=== PATIENT | female | born 1935 | race Hispanic/Latino ===

== ENCOUNTER 2016-10-11 09:37 | Day surgery (SDC) | payer MEDICARE ==
[2016-10-04 11:12] VITALS: RESP 18; BMI 30.2
[2016-10-11] MEDS ORDERED: Propofol 10 mg/ml Inj (20 ML) ONE (11:13)
[2016-10-11] MEDS ORDERED: Midazolam 2 MG/2 ML VIAL ONE (11:13)
[2016-10-11] MEDS ORDERED: cefTRIAXone (Rocephin) 1 gm Inj ONE (11:35)
[2016-10-11] MEDS ORDERED: Iohexol 240 200 ML IJ ONE ×2 (11:36→12:15)
[2016-10-11] MEDS ORDERED: Lactated Ringer's 1,000 ML IV ONE (12:15)
[2016-10-11] MEDS ORDERED: cefTRIAXone (Rocephin) 1 gm Inj IM ONE (12:20)
[2016-10-11 14:09] VITALS: TEMP 97.2
[2016-10-11 14:35] VITALS: BP 165/76; PULSE 67; O2SAT 96
--- NOTE | 2016-10-11 16:48 | RAD ---
PROCEDURE: Fluoroscopy up to 1 hr. HISTORY: CYSTOSCOPY COMPARISON: None TECHNIQUE: Standard protocol for this study/examination. FINDINGS: Submitted images from the current procedure: 21.0. IMPRESSION: Less than 1 hr fluoroscopic time utilized during performance of the procedure.
--- NOTE | 2016-11-20 15:50 | OP ---
PROCEDURE DATE: 10/11/2016 PREOPERATIVE DIAGNOSIS: Left hydronephrosis. POSTOPERATIVE DIAGNOSIS: Left hydronephrosis. PROCEDURE PERFORMED: Cystoscopy, left retrograde pyelogram with a left double-J stent placement. The patient was placed on the operating room table in a dorsal lithotomy position. The area of the [facility] was draped and prepped in a sterile manner. Using a #21 cystoscope, I entered into the bladder atraumatically. I then inserted an open-ended ureteral catheter and did a retrograde pyelogram to be able to confirm the hydronephrosis on the left side. At this time, over a guidewire, I was able to advance a 6-Polish multilink double-J stent into fluoroscopic good position. Once this was done, the n the patient was taken from the operating room in good condition. Humberto Whitmore MD cc: 48 TT: 11/20/2016 15:49:34 sn
--- NOTE | 2016-11-20 18:12 | DS ---
This is a female patient who came in for treatment of a left hydronephrosis. In the operating room, she underwent a retrograde pyelogram and a left double-J stent placement. In the recovery room the p atient is stable. She will be discharged from the hospital today with followup in my office and futu re management of the stent to be discussed at that time. The patient was on IV antibiotics and given a prescription for Cipro to take orally. Again, she will be followed up in my office within this we ek. Humberto Whitmore MD cc: 48 TT: 11/20/2016 18:11:24 rakesh
== END 2016-10-11 14:40 | disposition home or self-care (01) ==
LOC: H.OPSURG 09:37
PROVIDERS: ATTEND Urology
DX: N13.39 Other hydronephrosis (principal); J44.9 Chronic obstructive pulmonary disease, unspecified; E11.9 Type 2 diabetes mellitus without complications; I10 Essential (primary) hypertension
CPT/HCPCS: 52005; 52332; 82948; C1758; C2617; J0696; J2001; J2250; J2270; J2704; J3010; J7120; Q9966

== ENCOUNTER 2017-03-23 10:40 | Inpatient (IN) | payer MEDICARE ==
[2017-03-23 10:43] VITALS: BMI 29.7
--- NOTE | 2017-03-23 12:21 | US ---
Bilateral lower extremity ultrasound. Indication: Bilateral swelling, erythema, pain Technique: Duplex ultrasound evaluation of the bilateral lower extremities Comparison: None available Findings: There is normal flow, compressibility, and augmentation of the bilateral common femoral, femoral, and popliteal veins. The bilateral posterior tibial veins appear patent. 3.4 x 2.6 x 1.0 cm fluid collection within the left popliteal fossa compatible with Palomares's cyst. Incidental note is made of arterial plaque. Impression: No evidence of deep venous thrombosis in bilateral lower extremities. 3.4 x 2.6 x 1.0 cm fluid collection within the left popliteal fossa compatible with Palomares's cyst. Incidental note is made of arterial plaque.
[2017-03-23 12:47] LABS: BASO % 0.4 % (0.0-2.0); EOS # 0.1 K/uL (0.0-0.7); EOS % 0.6 % (0.0-4.0); HEMATOCRIT 22.2 % (34.0-47.0); LYMPH # 0.8 K/uL (1.0-4.3); LYMPH % 8.8 % (20.0-40.0); MEAN CELL VOLUME 98.8 fl (81.0-99.0); MEAN CORPUSCULAR HEMOGLOBIN 33.4 pg (27.0-31.0); MEAN CORPUSCULAR HGB CONC 33.8 g/dL (33.0-37.0); MEAN PLATELET VOLUME 9.7 fl (7.2-11.7); MONO # 0.1 K/uL (0.0-0.8); NEUT # 8.2 K/uL (1.8-7.0); NEUT % 89.2 % (50.0-75.0); NRBC % 0.1 % (0.0-0.0); WHITE BLOOD COUNT 9.2 K/uL (4.8-10.8)
[2017-03-23 12:50] LABS: PARTIAL THROMBOPLASTIN TIME 27.5 Seconds (25.6-37.1)
[2017-03-23 12:56] LABS: ALB/GLOB RATIO 1.2 (1.0-2.1); BILIRUBIN,TOTAL 0.6 mg/dl (0.2-1.3); POTASSIUM 4.2 MMOL/L (3.6-5.0); TOTAL PROTEIN 6.9 G/DL (6.3-8.2)
[2017-03-23 13:22] LABS: NEUTROPHIL 91 % (42-75); TOTAL CELLS COUNTED 100
[2017-03-23 13:25] LABS: PLATELET COUNT 117 K/uL (130-400)
[2017-03-23 14:39] LABS: URINE BILIRUBIN NEGATIVE (NEGATIVE); URINE BLOOD NEGATIVE (NEGATIVE); URINE COLOR YELLOW (YELLOW); URINE GLUCOSE (UA) NEG (Normal); URINE KETONE NEGATIVE (NEGATIVE); URINE LEUKOCYTE ESTERASE TRACE Leu/uL (Negative); URINE PROTEIN NEGATIVE (NEGATIVE); URINE UROBILINOGEN 0.2-1.0 mg/dL (0.2-1.0)
--- NOTE | 2017-03-23 14:44 | RAD ---
HISTORY: elevated bnp COMPARISON: Chest x-ray performed 10/04/16 TECHNIQUE: Chest PA and lateral FINDINGS: LUNGS: Bilateral hilar prominence. No focal consolidation. Please note that chest x-ray has limited sensitivity for the detection of pulmonary masses. PLEURA: No significant pleural effusion identified. No definite pneumothorax . CARDIOVASCULAR: Heart size appears top normal. Ectatic aorta. Atherosclerotic calcifications. OSSEOUS STRUCTURES: Degenerative changes. Kyphosis. Scoliosis. Calcific tendinitis, right shoulder. VISUALIZED UPPER ABDOMEN: Unremarkable. OTHER FINDINGS: None. IMPRESSION: Bilateral hilar prominence. Additional incidental findings as above.
--- NOTE | 2017-03-23 14:46 | ED PDOC ---
Addendum entered and electronically signed by Milady Sanchez PA-C 03/23/17 15:55: Addendum Addendum: 03/23/17 15:33 03/23/17 12:30 03/23/17 12:30 Pt with severe anemia and due to SOB (pt symptomatic) and elevated troponin will need Blood transfusion which may help alleviate symptoms. severe anemia could be causing some ischemia to heart. MD Yannick is pt oncologist. MD Nancy will consult and notify. in, addition to Pt zoysn 3.75mg for acute cellulites, though pt without elevated WBC, pt is immunocompromised. elevated BUN 03/23/17 15:55 consent for b;ood transfusion obtained Addendum entered and electronically signed by Milady Sanchez PA-C 03/23/17 14:58: Addendum Addendum: 03/23/17 14:58 will withhold anticoagulants due to anemia. Original Note: HPI: General Adult Chief Complaint (Provider): LE erythema <Milady Sanchez - Last Filed: 03/23/17 15:33> <Tylor Cruz III - Last Filed: 03/23/17 16:02> Time Seen by Provider: 03/23/17 10:59 Chief Complaint (Nursing): Lower Extremity Problem/Injury Additional Complaint(s): 81yo F in ED for eval of b/l Lower extremity swelling with skin changes (redness ) and heavy sensation/pain to b/l plant feet. PT aslo admits to SOB which she has been having since August of this year and dark stool since start of chemo tx. Pt with DM, HTN and with cervical cancer metastatic to pelvis currently undergoing Chemo since august 2016 at [facility]. Pt with know hx of cardiac murmur, cardiomegaly and anemia and was told she may need a transfusion. Pt denies currently any dizziness, Vision changes, abd pain, nausea or vomiting, pt denies any blood stool, hemautiura, hematememsis. ( Milady Sanchez) Past Medical History Reviewed: Historical Data, Nursing Documentation, Vital Signs - Medical History PMH: Arthritis, Diabetes, GERD, HTN, Hypercholesterolemia, Chronic Kidney Disease - Surgical History Surgical History: Tonsillectomy - Family History Family History: States: No Known Family Hx <Milady Sanchez - Last Filed: 03/23/17 15:33> <Tylor Cruz III - Last Filed: 03/23/17 16:02> Vital Signs: Last Vital Signs Temp 98.4 F 03/23/17 10:41 Pulse 81 03/23/17 10:41 Resp 20 03/23/17 10:41 BP 137/71 03/23/17 10:41 Pulse Ox 100 03/23/17 14:52 - Home Medications Home Medications: Ambulatory Orders Medication Instructions Recorded Losartan [Cozaar] 100 mg PO DAILY 01/30/15 amLODIPine [Norvasc] 10 mg PO DAILY 01/30/15 Bisoprolol Fumarate 5 mg PO BID 10/11/16 Saxagliptin HCl [Onglyza] 5 mg PO DAILY 10/11/16 metFORMIN [glucOPHAGE] 500 mg PO BID 10/11/16 Cyanocobalamin [Vitamin B12 1000 1 tab PO DAILY 03/23/17 mcg Tab] Lutein [Lutein] 1 tab PO DAILY 03/23/17 Multivit-Min/FA/Lycopen/Lutein 1 tab PO DAILY 03/23/17 [Centrum Silver Tablet] Excel-3 Fatty Acids [Excel-3] 1,000 mg PO DAILY 03/23/17 Ubidecarenone [Coenzyme Q-10] 1 cap PO DAILY 03/23/17 - Allergies Allergies/Adverse Reactions: Allergies Allergy/AdvReac Type Severity Reaction Status Date / Time ragweed pollen Allergy SNEEZING Verified 10/11/16 12:02 milk AdvReac DIARRHEA Verified 10/04/16 10:21 Review of Systems ROS Statement: Except As Marked, All Systems Reviewed And Found Negative Constitutional: Negative for: Fever, Chills Cardiovascular: Positive for: Orthopnea, Paroxysmal Noc. Dyspnea. Negative for : Chest Pain, Palpitations, Edema, Light Headedness Respiratory: Positive for: Shortness of Breath, SOB with Exertion. Negative for : Cough Gastrointestinal: Negative for: Nausea, Vomiting, Abdominal Pain Genitourinary Female: Negative for: Hematuria <Milady Sanchez - Last Filed: 03/23/17 15:33> Physical Exam - Reviewed Nursing Documentation Reviewed: Yes Vital Signs Reviewed: Yes - Physical Exam Appears: Positive for: Well, Non-toxic, No Acute Distress Head Exam: Positive for: ATRAUMATIC, NORMAL INSPECTION, NORMOCEPHALIC Skin: Positive for: Normal Color, Warm, DRY Eye Exam: Positive for: EOMI, Normal appearance, PERRL ENT: Positive for: Normal ENT Inspection Neck: Positive for: Normal, Painless ROM Cardiovascular/Chest: Positive for: Regular Rate, Rhythm Respiratory: Positive for: CNT, Normal Breath Sounds Gastrointestinal/Abdominal: Positive for: Normal Exam, Bowel Sounds, Soft Back: Positive for: Normal Inspection Extremity: Positive for: Swelling, Other. Negative for: Pedal Edema (erythema noted to b.l LEG, no warmth noted nontedner no streaking. non pitting. ), Calf Tenderness Neurologic/Psych: Positive for: Alert, Oriented <Milady Sanchez - Last Filed: 03/23/17 15:33> - Laboratory Results Result Diagrams: 03/23/17 12:30 03/23/17 12:30 - ECG ECG Rhythm: Positive for: Normal QRS, Normal ST Segment, Sinus Rhythm O2 Sat by Pulse Oximetry: 100 - Radiology X-Ray: Interpreted by Tn X-Ray Interpretation: No Acute Disease - CT Scan/US US Other Rad Studies (CT/US): Radiology Report Reviewed ((-) DVT) <Milady Sanchez - Last Filed: 03/23/17 15:33> - Laboratory Results Result Diagrams: 03/23/17 12:30 03/23/17 12:30 <Tylor Cruz III - Last Filed: 03/23/17 16:02> - Progress ED Course And Treament: Pt case discussed with MD Nancy-considering pt with elevated BNP, trop and chemotx PT will need admission for repeat labs and monitoring. (iMlady Sanchez) Medical Decision Making <Milady Sancehz - Last Filed: 03/23/17 15:33> <Tylor Cruz III - Last Filed: 03/23/17 16:02> Medical Decision Making: pt admitted for elevated troponin, BNP and swelling to LE with SOB under MD Cyndi page placed to MD leticia Peace to notify. due to low hgb will get guaic and send to lab. (Milady Sanchez) attending note- pt seen and examined. 81yo female w uterine cancer on palliative chemo Discussed w her oncologist Dr Lanier, he agrees w Abx and PRBC transfusion. Reports she refused procrit in the past. He states shes on palliative chemo and ok to miss a week, as she is due sunday. Consent for PRBC obtained. All results explained to patient. (Tylor Cruz III) Disposition - Patient ED Disposition Is Patient to be Admitted: Yes - Disposition Disposition Time: 14:51 - Pt Status Changed To: Hospital Disposition Of: Inpatient - Admit Certification Admit to Inpatient:: After my assessment, the patient will require hospitalization for at least two midnights. This is because of the severity of symptoms shown, intensity of services needed, and/or the medical risk in this patient being treated as an outpatient. - POA Present On Arrival: None <Milady Sanchez - Last Filed: 03/23/17 15:33> <Tylor Cruz III - Last Filed: 03/23/17 16:02> - Clinical Impression Clinical Impression: SOB (shortness of breath), Leg swelling, Elevated troponin - Disposition Condition: FAIR Forms: [facility] ([place])
[2017-03-23 14:58] LABS: RBC URINE 3 /hpf (0-3); WBC URINE 12 /hpf (0-5)
[2017-03-23 14:59] LABS: URINE BACTERIA RARE (<OCC)
[2017-03-23] MEDS ORDERED: Piperacillin/Tazobact 3.375 GM in Sodium Chloride 0.9% 100 ML IVPB STA (15:48)
[2017-03-23] MEDS ORDERED: Piperacillin/Tazobact 3.375 gm Inj IVPB ONE (16:21)
[2017-03-23] MEDS ORDERED: Sodium Chloride 0.9% 50 ML IV ONE (16:39)
[2017-03-23] MEDS ORDERED: Iodixanol 320 MG/ML 100 ML BOTTLE IV ONE (16:39)
--- NOTE | 2017-03-23 16:45 | CARD ---
APPROVED REPORT EKG Measurement Heart [id number] <Conclusion> Sinus rhythm with premature supraventricular complexes Possible Anterior infarct, age undetermined Abnormal ECG
--- NOTE | 2017-03-23 17:42 | CT ---
CTA chest PE protocol Indication: cancer, elevated trop r/o PE Technique: Contiguous axial images were obtained through the chest with intravenous contrast enhancement. Sagittal and coronal reconstructions were generated and reviewed. This CT exam was performed using 1 or more of the falling dose reduction techniques: Automated exposure control, adjustment of the MAA and/or kV according to patient size, and/or use of iterative reconstruction technique. IV Contrast: 80 mL Visipaque 320 Radiation dose (DLP): 363.23 MGy-cm. Comparison: Chest x-ray performed 03/23/17 Findings: Visualized portions of the inferior thyroid gland appear unremarkable. The mediastinal and hilar vascular structures appear within normal limits. Cardiomegaly. Dense aortic valve and coronary artery calcifications. No large central or segmental pulmonary embolus evident. Mild bibasilar atelectasis. No focal consolidation. No pleural effusion. No pneumothorax. No suspicious pulmonary nodules measuring greater than 5 mm. Small hiatal hernia/distal esophageal wall thickening. Limited visualized portions of the upper abdomen demonstrates indeterminate 12 mm hypodense lesion within the left hepatic lobe. Bilateral adrenal gland hypertrophy. Multilevel degenerative changes of the spine. Osseous demineralization. Scoliosis. Kyphosis. Impression: Cardiomegaly. Dense aortic valve and coronary artery calcifications. No large central or segmental pulmonary embolus evident. Mild bibasilar atelectasis. Small hiatal hernia/distal esophageal wall thickening. Indeterminate 12 mm hypodense lesion within the left hepatic lobe. Recommend correlation with prior outside imaging if available. Dedicated CT may be considered for further characterization if indicated. Bilateral adrenal gland hypertrophy.
--- NOTE | 2017-03-23 17:47 | CP.PCM.CON ---
Past Patient History - Infectious Disease Hx of Infectious Diseases: None - Past Medical History & Family History Past Medical History?: Yes - Past Social History Smoking Status: Never Smoked - CARDIAC Hx Hypercholesterolemia: Yes Hx Hypertension: Yes - PULMONARY Hx Respiratory Disorders: No - NEUROLOGICAL Hx Neurological Disorder: No - HEENT Hx HEENT Problems: Yes Hx Glaucoma: Yes - RENAL Hx Chronic Kidney Disease: Yes - ENDOCRINE/METABOLIC Hx Endocrine Disorders: Yes Hx Diabetes Mellitus Type 1: Yes Hx Diabetes Mellitus Type 2: Yes - HEMATOLOGICAL/ONCOLOGICAL Hx Blood Disorders: Yes Hx Blood Transfusions: Yes Hx Blood Transfusion Reaction: No Hx Cancer: Yes (OVARIAN) Hx Chemotherapy: Yes - INTEGUMENTARY Hx Dermatological Problems: No - MUSCULOSKELETAL/RHEUMATOLOGICAL Hx Arthritis: Yes - GASTROINTESTINAL Hx Gastrointestinal Disorders: Yes Hx Gastroesophageal Reflux: Yes (GERD) Other/Comment: ENLARGE LIVER - GENITOURINARY/GYNECOLOGICAL Hx Genitourinary Disorders: No - PSYCHIATRIC Hx Emotional Abuse: No Hx Physical Abuse: No Hx Substance Use: No - SURGICAL HISTORY Hx Tonsillectomy: Yes - ANESTHESIA Hx Anesthesia: Yes Hx Anesthesia Reactions: No Hx Malignant Hyperthermia: No Meds Allergies/Adverse Reactions: Allergies Allergy/AdvReac Type Severity Reaction Status Date / Time ragweed pollen Allergy SNEEZING Verified 10/11/16 12:02 milk AdvReac DIARRHEA Verified 10/04/16 10:21 Results - Vital Signs Recent Vital Signs: Last Vital Signs Temp 98.3 F 03/23/17 16:01 Pulse 88 03/23/17 17:31 Resp 16 03/23/17 17:31 BP 121/81 03/23/17 17:31 Pulse Ox 100 03/23/17 17:31 - Labs Result Diagrams: 03/23/17 12:30 03/23/17 12:30 Labs: Laboratory Results - last 24 hr 03/23/17 03/23/17 03/23/17 12:15 12:30 12:30 WBC 9.2 RBC 2.25 L Hgb 7.5 L D Hct 22.2 L MCV 98.8 D MCH 33.4 H MCHC 33.8 RDW 16.0 H Plt Count 117 L D MPV 9.7 Neut % (Auto) 89.2 H Lymph % (Auto) 8.8 L Blaine % (Auto) 1.0 Eos % (Auto) 0.6 Baso % (Auto) 0.4 Neut # 8.2 H Lymph # 0.8 L Blaine # 0.1 Eos # 0.1 Baso # 0.0 Neutrophils % (Manual) 91 H Lymphocytes % (Manual) 9 L Monocytes % (Manual) 0 Platelet Estimate Slightly decreased L PT INR APTT Sodium 141 Potassium 4.2 Chloride 103 Carbon Dioxide 25 Anion Gap 17 BUN 28 H Creatinine 1.2 Est GFR ( Amer) 52 Est GFR (Non-Af Amer) 43 Random Glucose 155 H Calcium 9.0 Total Bilirubin 0.6 AST 29 ALT 22 Alkaline Phosphatase 83 Troponin I 0.1390 H* NT-Pro-B Natriuret Pep 4830 H Total Protein 6.9 Albumin 3.7 Globulin 3.1 Albumin/Globulin Ratio 1.2 Urine Color Urine Clarity Urine pH Ur Specific [place] Urine Protein Urine Glucose (UA) Urine Ketones Urine Blood Urine Nitrate Urine Bilirubin Urine Urobilinogen Ur Leukocyte Esterase Urine RBC (Auto) Urine Microscopic WBC Ur Squamous Epith Cells Urine Bacteria Stool Occult Blood Blood Type Antibody Screen BBK History Checked 03/23/17 03/23/17 03/23/17 12:30 14:30 15:10 WBC RBC Hgb Hct MCV MCH MCHC RDW Plt Count MPV Neut % (Auto) Lymph % (Auto) Blaine % (Auto) Eos % (Auto) Baso % (Auto) Neut # Lymph # Blaine # Eos # Baso # Neutrophils % (Manual) Lymphocytes % (Manual) Monocytes % (Manual) Platelet Estimate PT 12.3 INR 1.2 APTT 27.5 Sodium Potassium Chloride Carbon Dioxide Anion Gap BUN Creatinine Est GFR ( Amer) Est GFR (Non-Af Amer) Random Glucose Calcium Total Bilirubin AST ALT Alkaline Phosphatase Troponin I NT-Pro-B Natriuret Pep Total Protein Albumin Globulin Albumin/Globulin Ratio Urine Color Yellow Urine Clarity Slighty-cloudy Urine pH 6.0 Ur Specific [place] 1.013 Urine Protein Negative Urine Glucose (UA) Neg Urine Ketones Negative Urine Blood Negative Urine Nitrate Negative Urine Bilirubin Negative Urine Urobilinogen 0.2-1.0 Ur Leukocyte Esterase Trace Urine RBC (Auto) 3 Urine Microscopic WBC 12 H Ur Squamous Epith Cells 3 Urine Bacteria Rare Stool Occult Blood Negative Blood Type Antibody Screen BBK History Checked 03/23/17 15:15 WBC RBC Hgb Hct MCV MCH MCHC RDW Plt Count MPV Neut % (Auto) Lymph % (Auto) Blaine % (Auto) Eos % (Auto) Baso % (Auto) Neut # Lymph # Blaine # Eos # Baso # Neutrophils % (Manual) Lymphocytes % (Manual) Monocytes % (Manual) Platelet Estimate PT INR APTT Sodium Potassium Chloride Carbon Dioxide Anion Gap BUN Creatinine Est GFR ( Amer) Est GFR (Non-Af Amer) Random Glucose Calcium Total Bilirubin AST ALT Alkaline Phosphatase Troponin I NT-Pro-B Natriuret Pep Total Protein Albumin Globulin Albumin/Globulin Ratio Urine Color Urine Clarity Urine pH Ur Specific [place] Urine Protein Urine Glucose (UA) Urine Ketones Urine Blood Urine Nitrate Urine Bilirubin Urine Urobilinogen Ur Leukocyte Esterase Urine RBC (Auto) Urine Microscopic WBC Ur Squamous Epith Cells Urine Bacteria Stool Occult Blood Blood Type O POSITIVE Antibody Screen Negative BBK History Checked No verified bt
[2017-03-24] MEDS: Insulin Lispro (humaLOG) 100 Units/ml Inj SC SCH ×5 (02:06→21:46)
[2017-03-24] MEDS: Multivitamin With Minerals Tab PO SCH (08:41)
[2017-03-24] MEDS: Omega-3-Acid Ethyl Esters 1 GM Cap PO SCH (08:41)
[2017-03-24] MEDS ORDERED: UBIDECARENONE PO SCH (09:00)
[2017-03-24] MEDS ORDERED: Patient's Own Med (Multivit-Min/Fa/Lycopen/Lutein [Centrum Silver Tablet] 1 TAB) PO SCH (09:00)
--- NOTE | 2017-03-24 10:30 | CP.PCM.PN ---
Objective - Vital Signs/Intake and Output Vital Signs (last 24 hours): Temp Pulse Resp BP Pulse Ox 98.5 F 68 20 163/76 H 99 03/24/17 08:23 03/24/17 08:41 03/24/17 08:23 03/24/17 08:43 03/24/17 08:23 - Medications Medications: Current Medications Bisoprolol Fumarate (Zebeta) 5 mg PO BID [facility] Cyanocobalamin (Vitamin B12 1000 Mcg Tab) 1,000 mcg PO DAILY [facility] Last Admin: 03/24/17 08:41 Dose: 1,000 mcg Furosemide (Lasix) 20 mg IVP Q12 MARY ANN Last Admin: 03/24/17 08:43 Dose: 20 mg Heparin Sodium (Porcine) (Heparin) 5,000 units SC Q12 MARY ANN PRN Reason: Protocol Last Admin: 03/24/17 08:42 Dose: 5,000 units Home Med (Ubidecarenone [Coenzyme Q-10]) 1 cap PO DAILY [facility] Insulin Human Lispro (Humalog) 0 units SC ACHS [facility] PRN Reason: Protocol Last Admin: 03/24/17 07:41 Dose: Not Given Losartan Potassium (Cozaar) 100 mg PO DAILY [facility] Last Admin: 03/24/17 08:41 Dose: 100 mg Metformin HCl (Glucophage) 500 mg PO BID [facility] Last Admin: 03/24/17 08:41 Dose: 500 mg Multivitamins/Minerals (Therapeutic-M Tab) 1 tab PO DAILY [facility] Last Admin: 03/24/17 08:41 Dose: 1 tab [id number] Ethyl Esters (Lovaza) 1 gm PO DAILY [facility] Last Admin: 03/24/17 08:41 Dose: 1 gm - Labs Labs: 03/23/17 12:30 03/23/17 12:30 PT 12.3 Seconds (9.8-13.1) 03/23/17 12:30 INR 1.2 (0.9-1.2) 03/23/17 12:30 APTT 27.5 Seconds (25.6-37.1) 03/23/17 12:30
[2017-03-24 11:19] LABS: HEMATOCRIT 28.9 % (34.0-47.0); MEAN CELL VOLUME 95.4 fl (81.0-99.0); MEAN CORPUSCULAR HEMOGLOBIN 32.2 pg (27.0-31.0); MEAN CORPUSCULAR HGB CONC 33.8 g/dL (33.0-37.0); RED CELL DISTRIBUTION WIDTH 17.2 % (11.5-14.5); WHITE BLOOD COUNT 4.5 K/uL (4.8-10.8)
[2017-03-24 23:31] VITALS: RESP 18
[2017-03-25 08:13] VITALS: O2SAT 100
[2017-03-25] MEDS: Insulin Lispro (humaLOG) 100 Units/ml Inj SC SCH (08:26)
[2017-03-25] MEDS: Omega-3-Acid Ethyl Esters 1 GM Cap PO SCH (08:28)
[2017-03-25] MEDS: Multivitamin With Minerals Tab PO SCH (08:28)
[2017-03-25 08:48] LABS: THYROID STIMULATING HORMONE 3.39 mIU/ML (0.46-4.68)
[2017-03-25 10:30] LABS: CALCIUM 9.4 mg/dL (8.4-10.2); POTASSIUM 3.8 MMOL/L (3.6-5.0)
[2017-03-25 12:24] VITALS: BP 164/84; PULSE 83; TEMP 97.5
--- NOTE | 2017-03-26 09:22 | HP ---
HISTORY OF PRESENT ILLNESS: This is an 81 years old female with history of longstanding history of ovarian cancer status post surgery and was remission for many years until it returned with spread this year. The patient is currently on chemotherapy, last chemotherapy was 5 days prior to this admission. The patient presented with complaints of bilateral lower extremity swelling as well as redness of the lateral lower extremity. The patient is evaluated in the emergency room and she had venous Doppler that ruled out deep venous thrombosis. The patient also was complaining of shortness of breath and she had a chest CAT scan that ruled out pulmonary embolism. The patient was found to have hemoglobin of 7.5. The patient was admitted for further management after consulting with her oncologist. REVIEW OF SYSTEMS: Other review of system is negative. ALLERGIES: NO KNOWN ALLERGIES. HOME MEDICATIONS: Include Coenzyme Q10, omega-3 1000 mg daily, multivitamin 1 tablet daily, vitamin B12 one tablet daily, metformin 500 mg twice a day, amlodipine 10 mg daily, Onglyza 5 mg daily, Losartan 100 mg daily, and bisoprolol 5 mg twice a day. PAST MEDICAL HISTORY: Hypertension and type 2 diabetes mellitus. SOCIAL HISTORY: No history of smoking, EtOH or substance abuse. FAMILY HISTORY: Not contributory. PHYSICAL EXAMINATION: GENERAL: The patient is in bed comfortable, status post transfusion of 3 units of packed RBC's. No respiratory distress. VITAL SIGNS: Blood pressure 163/76, temperature 98.5, respiratory rate 20, and pulse 68. HEENT: Slightly pale mucosa of the conjunctivae. NECK: Supple. No JVD. No carotid bruit. No lymph node. No thyromegaly. CHEST AND LUNGS: Bilaterally symmetrical expansion. Good air exchange. No rales. No rhonchi. CARDIOVASCULAR SYSTEM: PMI not localized. S1 and S2. No additional sounds. ABDOMEN: Normoactive bowel sounds. No tenderness. No organomegaly. No masses. EXTREMITIES: No cyanosis. No clubbing. There is +1 edema with bilateral dorsum of the feet, diffuse redness, but there is no tenderness. ASSESSMENT: 1. Bilateral lower extremity edema and redness, likely secondary to medication side effects. 2. Symptomatic anemia of chronic disease. 3. Ovarian cancer on chemotherapy. PLAN: The patient was transfused 2 units of packed RBC's and amlodipine was stopped and we will give topical steroid for the bilateral redness, which could be reaction to the chemotherapy medications. Continue monitoring the patient on telemetry. Alejandro Quintero MD
--- NOTE | 2017-03-26 11:28 | CARD ---
APPROVED REPORT EXAM: Two-dimensional and M-mode echocardiogram with Doppler and color Doppler. Other Information Quality : GoodRhythm : 2D DIMENSIONS Left Atrium (2D)4.50 (1.6-4.0cm)IVSd0.63 (0.7-1.1cm) Aortic Root (2D)3.03 (2.0-3.7cm)LVDd5.51 (3.9-5.9cm) LVOT Diameter1.66 (1.8-2.4cm)PWd0.81 (0.7-1.1cm) IVSs0.72 (0.8-1.2cm)LVDs3.68 (2.5-4.0cm) FS (%) 33.2 %PWs1.23 (0.8-1.2cm) M-Mode DIMENSIONS Left Atrium (MM)3.38 (2.5-4.0cm)IVSd1.29 (0.7-1.1cm) Aortic Root3.32 (2.2-3.7cm)LVDd4.94 (4.0-5.6cm) Aortic Cusp Exc.1.21 (1.5-2.0cm)PWd1.04 (0.7-1.1cm) IVSs1.38 cmFS (%) 24 % LVDs3.78 (2.0-3.8cm)PWs1.29 cm Aortic Valve AoV Peak Fuzsrbeo987.9cm/sAoV VTI81.9cmAO Peak GR.57mmHg LVOT Peak Scsowwql104.4cm/sLVOT VTI25.92cmAO Mean GR.32mmHg SMILEY (VMAX)0.19oo5FYR (VTI)0.38cm2 Mitral Valve MV E Ezqgqbae52.5cm/sMV E Peak Gr.170mmHgMV DECEL [id number] MV A Uawiexqz23.1cm/sMV MBP924ibH/A ratio0.5 MVA (PHT)1.92cm2 TDI Lateral E' Peak V7.25cm/sMedial E' Peak V8.88cm/sE/Lateral E'5.9 E/Medial E'4.8 Pulmonary Valve PV Peak Erzrhvaa034.7cm/s Tricuspid Valve TR Peak Nbcgeiuh315fe/sRAP [id number] Peak Gr.16mmHg [id number] LEFT VENTRICLE The left ventricle is normal size. There is normal left ventricular wall thickness. The left ventricular function is normal. The left ventricular ejection fraction is within the normal range. The Ejection Fraction is 50-55%. There is normal LV segmental wall motion. Transmitral Doppler flow pattern is Grade I-abnormal relaxation pattern. No left ventricle thrombus noted on this study. There is no mass noted in the left ventricle. RIGHT VENTRICLE The right ventricle is normal size. There is normal right ventricular wall thickness. The right ventricular systolic function is normal. ATRIA The left atrium size is normal. The right atrium size is normal. The interatrial septum is intact with no evidence for an atrial septal defect. AORTIC VALVE The aortic valve is moderately sclerotic. No aortic regurgitation is present. There is severe valvular aortic stenosis. Calculated aortic valve area is 0.36 cm2 with maximum pressure gradient of 57 mmHg and mean pressure gradient of 32 mmHg. There is no aortic valvular vegetation. MITRAL VALVE The mitral valve is normal in structure and function. There is no evidence of mitral valve prolapse. There is no mitral valve stenosis. Mitral regurgitation is mild to moderate. TRICUSPID VALVE The tricuspid valve is normal in structure and function. There is mild tricuspid regurgitation. There is no tricuspid valve prolapse or vegetation. There is no tricuspid valve stenosis. PULMONIC VALVE The pulmonary valve is normal in structure and function. There is no pulmonic valvular regurgitation. There is no pulmonic valvular stenosis. GREAT VESSELS The aortic root is normal in size. The IVC is normal in size and collapses >50% with inspiration. PERICARDIAL EFFUSION The pericardium appears normal. There is no pleural effusion. <Conclusion> The left ventricle is normal size. The left ventricular function is normal. The left ventricular ejection fraction is within the normal range. The Ejection Fraction is 50-55%. The aortic valve is moderately sclerotic. There is severe valvular aortic stenosis. Calculated aortic valve area is 0.36 cm2 with maximum pressure gradient of 57 mmHg and mean pressure gradient of 32 mmHg. Mitral regurgitation is mild to moderate. There is mild tricuspid regurgitation.
--- NOTE | 2017-03-27 08:56 | DS ---
REASON FOR ADMISSION: This is an 81-year-old female with history of ovarian cancer, currently on chemotherapy, was admitted for bilateral lower extremity edema and redness of both the feet. COURSE OF HOSPITALIZATION: The patient was admitted to telemetry floor and it was felt that bilateral edema was due to side effect of amlodipine. The patient had bilateral has redness at the dorsum of both feet as that was believed to be side effect from her chemotherapy. The patient was given topical steroid. The patient was found also to be anemic and blood transfusion was done from packed RBCs after getting the consent. The patient tolerated blood transfusion well and she was discharged home to follow up with her primary care physician as well as oncologist and decide further about the antihypertensive medications. FINAL DIAGNOSES: 1. Anemia, multifactorial. 2. Bilateral lower extremity edema secondary to amlodipine side effect. 3. Hypertension. Alejandro Quintero MD
--- NOTE | 2017-04-04 12:15 | PQF ANEMIA ---
Dr. Quintero anemia of chronic disease is documented. If known please specify chronic disease. This form is a permanent part of the medical record Clarification of your documentation is requested to better reflect the severity of illness and intensity of treatment of your patient. Indicators present [x] Anemia [] Drop in H&H from []___ to []___ [] Hypotension [] GI Bleed [] Transfusion(s) [] Acute bleed other sites [] Tachycardia [] Surgical Procedure Blood Loss (expected not a complication) Other:[] Location in the medical record that reflects the above clinical findings: [] Treatment Provided: [] PHYSICIAN'S RESPONSE Based on your medical judgment of the clinical indicators outlined above, are you treating this patient for a known or suspected: [] Acute blood loss anemia [] Chronic blood loss anemia [] Acute on Chronic blood loss anemia [] Anemia due to malignancy [] Anemia due to chemotherapy or radiation therapy [X] Anemia of Chronic Disease, please specify: ovarian cancer [] Other, please indicate type of anemia []____ [] If Unable to Determine, please check the box, sign and date. Present On Admission (POA) Indicator: [X] Present at the time of admission [] Not present at the time of admission [] Clinically Undetermined In responding to this query, please exercise your independent professional judgment. The fact that a question is asked does not imply that any particular answer is desired or expected. Thank you for your clarification on this documentation. If you have any questions please call:[ ] * Thank you, [ ]Sonja MORRISON Coder UNIQUE
== END 2017-03-25 12:41 | disposition home or self-care (01) | DRG 755 ==
LOC: H.ER 10:40 → H.ERHOLD 15:12 → H.TEL 18:09
PROVIDERS: ADMIT Internal Medicine; ATTEND Internal Medicine
PROC: 30233N1 Transfusion of Nonautologous Red Blood Cells into Peripheral Vein, Percutaneous Approach (ICD-10-PCS; principal; 2017-03-23)
DX: C56.9 Malignant neoplasm of unspecified ovary (principal); C79.89 Secondary malignant neoplasm of other specified sites; E11.22 Type 2 diabetes mellitus with diabetic chronic kidney disease; D63.0 Anemia in neoplastic disease; I12.9 Hypertensive chronic kidney disease with stage 1 through stage 4 chronic kidney disease, or unspecified chronic kidney disease; K21.9 Gastro-esophageal reflux disease without esophagitis; R60.0 Localized edema; T45.1X5A Adverse effect of antineoplastic and immunosuppressive drugs, initial encounter; R06.02 Shortness of breath; N18.9 Chronic kidney disease, unspecified; E78.00 Pure hypercholesterolemia, unspecified; M19.90 Unspecified osteoarthritis, unspecified site; T46.1X5A Adverse effect of calcium-channel blockers, initial encounter; L53.9 Erythematous condition, unspecified

== ENCOUNTER 2017-05-18 16:42 | Inpatient (IN) | payer MEDICARE ==
[2017-05-18 16:42] VITALS: BMI 29.7
--- NOTE | 2017-05-18 18:00 | ED PDOC ---
HPI: Trauma/Fall - HPI Time Seen by Provider: 05/18/17 17:10 Chief Complaint (Nursing): Trauma Chief Complaint (Provider): Left Hip and Left elbow injury History/Exam Limitations: no limitations Onset/Duration Of Symptoms: Hrs Associated Symptoms: denies: Dizziness, LOC Additional Complaint(s): Tamia Quinonez, an 81 year old female, with a past medical history of hypertension, diabetes, heart murmur and ovarian CA presents to the ED for a fall type injuries. The patient reports that this morning he fell on the sidewalk injuring his left hip and left elbow. Patient denies any head, back or neck injury. Also denies antecedent dizziness, loss of consciousness. Patient states he is unable to move his left leg. Past Medical History Reviewed: Historical Data, Nursing Documentation, Vital Signs Vital Signs: Last Vital Signs Temp 99.1 F 05/18/17 16:54 Pulse 89 05/18/17 16:54 Resp 20 05/18/17 16:54 BP 140/69 05/18/17 16:54 Pulse Ox 98 05/18/17 18:10 - Medical History PMH: Arthritis, Diabetes, GERD, HTN, Hypercholesterolemia, Pneumonia (during Infancy), Chronic Kidney Disease - Surgical History Surgical History: Tonsillectomy - Family History Family History: States: Unknown Family Hx - Social History Current smoker - smoking cessation education provided: No Ex-Smoker (has not smoked in the last 12 months): No Alcohol: None Drugs: Denies - Home Medications Home Medications: Ambulatory Orders Medication Instructions Recorded Losartan [Cozaar] 100 mg PO DAILY 01/30/15 amLODIPine [Norvasc] 10 mg PO DAILY 01/30/15 Bisoprolol Fumarate 5 mg PO BID 10/11/16 Saxagliptin HCl [Onglyza] 5 mg PO DAILY 10/11/16 metFORMIN [glucOPHAGE] 500 mg PO BID 10/11/16 Cyanocobalamin [Vitamin B12 1000 1 tab PO DAILY 03/23/17 mcg Tab] Lutein [Lutein] 1 tab PO DAILY 03/23/17 Multivit-Min/FA/Lycopen/Lutein 1 tab PO DAILY 03/23/17 [Centrum Silver Tablet] [place]-3 Fatty Acids [[place]-3] 1,000 mg PO DAILY 03/23/17 Ubidecarenone [Coenzyme Q-10] 1 cap PO DAILY 03/23/17 - Allergies Allergies/Adverse Reactions: Allergies Allergy/AdvReac Type Severity Reaction Status Date / Time ragweed pollen Allergy SNEEZING Verified 10/11/16 12:02 milk AdvReac DIARRHEA Verified 10/04/16 10:21 Review of Systems ROS Statement: Except As Marked, All Systems Reviewed And Found Negative Musculoskeletal: Positive for: Other (Left hip and Elbow injury) Neurological: Negative for: Dizziness (no antecedent dizziness) Physical Exam - Reviewed Nursing Documentation Reviewed: Yes Vital Signs Reviewed: Yes - Physical Exam Appears: Positive for: Non-toxic, No Acute Distress Head Exam: Positive for: ATRAUMATIC, NORMAL INSPECTION, NORMOCEPHALIC Skin: Positive for: Normal Color, Warm, Dry. Negative for: Rash Eye Exam: Positive for: Normal appearance, EOMI, PERRL. Negative for: Nystagmus ENT: Positive for: Normal ENT Inspection Neck: Positive for: Normal, Painless ROM, Supple Cardiovascular/Chest: Positive for: Regular Rate, Rhythm, Chest Non Tender. Negative for: Tachycardia Respiratory: Positive for: Normal Breath Sounds. Negative for: Rales, Rhonchi, Wheezing, Respiratory Distress Gastrointestinal/Abdominal: Positive for: Normal Exam, Bowel Sounds, Soft. Negative for: Mass, Guarding, Rebound Back: Positive for: Normal Inspection. Negative for: L CVA Tenderness, R CVA Tenderness Extremity: Positive for: Normal ROM, Tenderness (tenderness and pain on flexion and extension left hip ), Other (questionable leg shortening ). Negative for: Deformity (left elbow no deformity ) Neurologic/Psych: Positive for: Alert (AAO x3), Oriented, Gait - ECG O2 Sat by Pulse Oximetry: 98 (RA) Pulse Ox Interpretation: Normal Medical Decision Making Medical Decision Makin Initial Impression 81 year old female presenting wit left elbow and left hip injury Initial Plan: * Chest x-ray * Toradol 30 mg IVP * RAD LFT Elbow * RAD Hip Min 2V W/ Pelvis * Reevaluation Scribe Attestation Documented by Marisela Worthy acting as a scribe for Igor Oquendo MD. Provider Attestation All medical record entries made by the Scribe were at my direction and personally dictated by me. I have reviewed the chart and agree that the record accurately reflects my personal performance of the history, physical exam, medical decision making, and the department course for this patient. I have also personally directed, reviewed, and agree with the discharge instructions and disposition. Disposition - Clinical Impression Clinical Impression: Hip fracture - Patient ED Disposition Is Patient to be Admitted: Yes - Disposition Disposition Time: 20:45 Condition: FAIR Forms: [employer] (Greek) - Pt Status Changed To: Hospital Disposition Of: Inpatient - Admit Certification Admit to Inpatient:: After my assessment, the patient will require hospitalization for at least two midnights. This is because of the severity of symptoms shown, intensity of services needed, and/or the medical risk in this patient being treated as an outpatient. - POA Present On Arrival: None
--- NOTE | 2017-05-18 19:34 | CT ---
EXAM: CT Left Lower Extremity Without Intravenous Contrast, Hip EXAM DATE/TIME: 05/18/2017 6:40 PM CLINICAL HISTORY: 81 years old, female; Injury or trauma; Fall; Initial encounter; Blunt trauma; Hip; Left; Injury details: Unable to move left leg; Additional info: Pain left hip TECHNIQUE: Axial computed tomography images of the left hip without intravenous contrast. All CT scans at this facility use one or more dose reduction techniques, viz.: automated exposure control; ma/kV adjustment per patient size (including targeted exams where dose is matched to indication; i.e. head); or iterative reconstruction technique. Coronal and sagittal reformatted images were created and reviewed. COMPARISON: Hip and pelvis, 05/18/17 FINDINGS: Bones/joints: There are no ileal, ischial or pubic fractures. Acetabulum is intact. There is vacuum phenomenon in the left sacroiliac joint. There is a subcapital impaction fracture of the left hip. Soft tissues: There is bruising of soft tissues at the left hip. Vasculature: There are vascular calcifications. Bowel: There is a nonobstructed gas pattern in the visualized portion of the pelvis. There is diverticulosis. Bladder: Urinary bladder is partially distended. Reproductive: Uterus is prominent for age. There are multiple clips associated with the uterus. Texture is heterogeneous. Adnexa are not well demonstrated. IMPRESSION: Subcapital impaction fracture of the left hip
[2017-05-18] MEDS ORDERED: Sodium Chloride 0.9% 1,000 ML IV STA (20:41)
[2017-05-18 21:42] LABS: BASO % 0.4 % (0.0-2.0); EOS % 0.7 % (0.0-4.0); HEMATOCRIT 24.9 % (34.0-47.0); LYMPH # 0.4 K/uL (1.0-4.3); LYMPH % 6.5 % (20.0-40.0); MEAN CORPUSCULAR HEMOGLOBIN 30.4 pg (27.0-31.0); MEAN PLATELET VOLUME 9.3 fl (7.2-11.7); MONO # 0.1 K/uL (0.0-0.8); MONO % 1.3 % (0.0-10.0); NEUT % 91.1 % (50.0-75.0); NRBC % 0.1 % (0.0-0.0); PLATELET COUNT 95 K/uL (130-400); RED CELL DISTRIBUTION WIDTH 18.9 % (11.5-14.5); WHITE BLOOD COUNT 6.6 K/uL (4.8-10.8)
[2017-05-18 22:01] LABS: ALB/GLOB RATIO 1.3 (1.0-2.1); BILIRUBIN,TOTAL 0.6 mg/dl (0.2-1.3); CALCIUM 9.3 mg/dL (8.4-10.2); POTASSIUM 4.3 MMOL/L (3.6-5.0); TOTAL PROTEIN 6.9 G/DL (6.3-8.2)
[2017-05-18 22:28] LABS: EOSINOPHIL 1 % (0-7); NEUTROPHIL 89 % (42-75); TOTAL CELLS COUNTED 100
[2017-05-18 22:31] LABS: LARGE PLATELETS PRESENT
[2017-05-18] MEDS ORDERED: HYDROmorphone 0.5 mg/0.5 ml ISec IVP PRN (23:23)
[2017-05-19] MEDS: Sodium Chloride 0.9% 1,000 ML IV SCH (00:21)
[2017-05-19 07:04] LABS: BASO % 0.6 % (0.0-2.0); EOS # 0.2 K/uL (0.0-0.7); EOS % 3.5 % (0.0-4.0); HEMATOCRIT 23.4 % (34.0-47.0); LYMPH # 0.7 K/uL (1.0-4.3); LYMPH % 12.3 % (20.0-40.0); MEAN CELL VOLUME 93.9 fl (81.0-99.0); MEAN PLATELET VOLUME 8.9 fl (7.2-11.7); MONO % 0.7 % (0.0-10.0); NEUT # 4.8 K/uL (1.8-7.0); NEUT % 82.9 % (50.0-75.0); RED CELL DISTRIBUTION WIDTH 19.3 % (11.5-14.5); WHITE BLOOD COUNT 5.8 K/uL (4.8-10.8)
[2017-05-19] MEDS: Enoxaparin 40 mg Syringe SC SCH (08:47)
--- NOTE | 2017-05-19 09:34 | RAD ---
PROCEDURE: CHEST RADIOGRAPH, 1 VIEW HISTORY: trauma COMPARISON: Chest radiograph 03/21/2017. FINDINGS: LUNGS: No acute infiltrate bilaterally. PLEURA: No pneumothorax or pleural fluid seen. CARDIOVASCULAR: Likely technical magnification of the cardiac silhouette given frontal technique. Cardiac size likely upper limits of normal as previously shown. No pulmonary vascular derangement identified. OSSEOUS STRUCTURES: Scoliotic thoracolumbar spinal deformity again evident with gross multilevel spondylosis appreciated. VISUALIZED UPPER ABDOMEN: Normal. OTHER FINDINGS: None. IMPRESSION: No definite acute cardiopulmonary disease. Borderline cardiomegaly likely present.
--- NOTE | 2017-05-19 09:38 | RAD ---
PROCEDURE: Radiographs of the left elbow. HISTORY: trauma COMPARISON: No prior. FINDINGS: BONES: No acute fracture or destructive bony lesion identified. JOINTS: Degenerative changes seen at the humeral ulnar joint manifest by cortical sclerosis. SOFT TISSUES: Normal. JOINT EFFUSION: None. OTHER FINDINGS: None IMPRESSION: No definite fracture or dislocation. CT or MRI are available for follow-up if clinical concern remains.
--- NOTE | 2017-05-19 09:42 | RAD ---
PROCEDURE: Left Hip X-ray Radiographs. HISTORY: trauma COMPARISON: None. FINDINGS: BONES: No acute fracture or destructive bony lesion identified. Including left hip and pelvic ring. Advanced degenerative disease seen at the inferior lumbar spine with the scoliotic deformity also included. JOINTS: Degenerative sclerosis appreciated the cortical surface of the weight-bearing portion the left hip joint compatible osteoarthritis. No subluxation or dislocation is associated with the left joint. Worse degenerative changes are appreciated at the right hip joint where there is also joint space narrowing. Bilateral sacroiliac degenerative changes are identified symmetrically. Pubic symphysis is intact. SOFT TISSUES: Normal. OTHER FINDINGS: None. IMPRESSION: Advanced degenerative joint disease appreciated bilaterally at the hips and sacroiliac joints without fracture dislocation left hip joint. Pelvic ring is intact without fracture or destructive bony lesion evident. Left hip is also intact.
--- NOTE | 2017-05-19 11:19 | CP.PCM.CON ---
History of Present Illness - History of Present Illness History of Present Illness: ID: 81 yo female with documented ovarian ca CC: pain restricted L hip ROM and inability to ambulaye HPI: 81 yo female presents with p[ain and rstricted L hip ROM after fall. Pt s/ p mechanical fall, presents wioth pain and deformity L lower ext. 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 Work up rveals Garens 1 subcapital impaction fx L hip Past Patient History - Infectious Disease Hx of Infectious Diseases: None - Past Medical History & Family History Past Medical History?: Yes - Past Social History Smoking Status: Never Smoked - CARDIAC Hx Cardiac Disorders: Yes Hx Heart Murmur: Yes Hx Hypercholesterolemia: Yes Hx Hypertension: Yes - PULMONARY Hx Pneumonia: Yes (during Infancy) - NEUROLOGICAL Hx Neurological Disorder: No - HEENT Hx HEENT Problems: Yes Hx Cataracts: Yes (ou) - RENAL Hx Chronic Kidney Disease: Yes - ENDOCRINE/METABOLIC Hx Endocrine Disorders: Yes Hx Diabetes Mellitus Type 2: Yes - HEMATOLOGICAL/ONCOLOGICAL Hx Blood Disorders: Yes Hx AIDS: No Hx Blood Transfusions: Yes Hx Blood Transfusion Reaction: No Hx Cancer: Yes (OVARIAN) Hx Chemotherapy: Yes (last chemo may 14, 2017) Hx Human Immunodeficiency Virus (HIV): No - INTEGUMENTARY Hx Dermatological Problems: No - MUSCULOSKELETAL/RHEUMATOLOGICAL Hx Arthritis: Yes Hx Falls: Yes - GASTROINTESTINAL Hx Gastrointestinal Disorders: Yes Hx Gastroesophageal Reflux: Yes (GERD) Other/Comment: ENLARGE LIVER - GENITOURINARY/GYNECOLOGICAL Hx Genitourinary Disorders: Yes Hx Ovarian Cancer: Yes - PSYCHIATRIC Hx Substance Use: No - SURGICAL HISTORY Hx Surgeries: Yes Hx Hysterectomy: Yes Hx Orthopedic Surgery: Yes (rt wrist) Hx Tonsillectomy: Yes - ANESTHESIA Hx Anesthesia: Yes Hx Anesthesia Reactions: No Hx Malignant Hyperthermia: No Meds Allergies/Adverse Reactions: Allergies Allergy/AdvReac Type Severity Reaction Status Date / Time ragweed pollen Allergy SNEEZING Verified 10/11/16 12:02 milk AdvReac DIARRHEA Verified 10/04/16 10:21 - Medications Medications: Current Medications Acetaminophen (Tylenol 325mg Tab) 650 mg PO Q6 PRN PRN Reason: Pain, Mild (1-3) Carvedilol (Coreg) 12.5 mg PO DAILY MARY ANN Last Admin: 05/19/17 08:51 Dose: 12.5 mg Enoxaparin Sodium (Lovenox) 40 mg SC DAILY MARY ANN PRN Reason: Protocol Last Admin: 05/19/17 08:47 Dose: Not Given Hydromorphone HCl (Dilaudid) 0.5 mg IVP Q4 PRN PRN Reason: Pain, severe (8-10) Sodium Chloride (Sodium Chloride 0.9%) 1,000 mls @ 100 mls/hr IV .Q10H [facility] Stop: 05/19/17 23:26 Last Admin: 05/19/17 00:21 Dose: Not Given Losartan Potassium (Cozaar) 100 mg PO DAILY [facility] Last Admin: 05/19/17 08:53 Dose: 100 mg Metformin HCl (Glucophage) 500 mg PO BID [facility] Last Admin: 05/19/17 08:52 Dose: 500 mg Sitagliptin Phosphate (Januvia) 50 mg PO DAILY [facility] Last Admin: 05/19/17 08:51 Dose: Not Given Tramadol HCl (Ultram) 50 mg PO Q6 PRN PRN Reason: Pain, moderate (4-7) Physical Exam - Additional Findings Additional findings: Musculoskekeltal stamnce/gait- defrred ROM L hip- defrred 0 trochanteric ecchymosis N/V intact no gross/progressive deficits Results - Vital Signs Recent Vital Signs: Last Vital Signs Temp 98.4 F 05/19/17 08:17 Pulse 84 05/19/17 08:53 Resp 20 05/19/17 08:17 BP 163/76 H 05/19/17 08:53 Pulse Ox 95 05/19/17 08:17 - Labs Result Diagrams: 05/19/17 05:20 05/18/17 21:34 Labs: Laboratory Results - last 24 hr 05/18/17 05/18/17 05/18/17 21:20 21:34 21:34 WBC 6.6 RBC 2.62 L Hgb 8.0 L Hct 24.9 L MCV 95.0 MCH 30.4 MCHC 32.0 L RDW 18.9 H Plt Count 95 L MPV 9.3 Neut % (Auto) 91.1 H Lymph % (Auto) 6.5 L [place] % (Auto) 1.3 Eos % (Auto) 0.7 Baso % (Auto) 0.4 Neut # 6.0 Lymph # 0.4 L [place] # 0.1 Eos # 0.0 Baso # 0.0 Neutrophils % (Manual) 89 H Band Neutrophils % 2 Lymphocytes % (Manual) 6 L Monocytes % (Manual) 2 Eosinophils % (Manual) 1 Platelet Estimate Slightly increased H Large Platelets Present Poikilocytosis (manual Slight Anisocytosis (manual) Moderate Macrocytosis (manual) Slight PT INR Sodium 139 Potassium 4.3 Chloride 105 Carbon Dioxide 24 Anion Gap 14 BUN 25 H Creatinine 1.1 Est GFR ( Amer) 57 Est GFR (Non-Af Amer) 47 POC Glucose (mg/dL) Random Glucose 174 H Calcium 9.3 Total Bilirubin 0.6 AST 45 H D ALT 41 Alkaline Phosphatase 84 Total Protein 6.9 Albumin 3.9 Globulin 3.0 Albumin/Globulin Ratio 1.3 Blood Type O POSITIVE Antibody Screen Negative BBK History Checked Patient has bt 05/18/17 05/19/17 05/19/17 21:34 05:20 05:42 WBC 5.8 RBC 2.49 L Hgb 7.7 L Hct 23.4 L MCV 93.9 MCH 31.0 MCHC 33.0 RDW 19.3 H Plt Count 84 L MPV 8.9 Neut % (Auto) 82.9 H Lymph % (Auto) 12.3 L [place] % (Auto) 0.7 Eos % (Auto) 3.5 Baso % (Auto) 0.6 Neut # 4.8 Lymph # 0.7 L [place] # 0.0 Eos # 0.2 Baso # 0.0 Neutrophils % (Manual) Band Neutrophils % Lymphocytes % (Manual) Monocytes % (Manual) Eosinophils % (Manual) Platelet Estimate Large Platelets Poikilocytosis (manual Anisocytosis (manual) Macrocytosis (manual) PT 12.1 INR 1.1 Sodium Potassium Chloride Carbon Dioxide Anion Gap BUN Creatinine Est GFR ( Amer) Est GFR (Non-Af Amer) POC Glucose (mg/dL) 203 H Random Glucose Calcium Total Bilirubin AST ALT Alkaline Phosphatase Total Protein Albumin Globulin Albumin/Globulin Ratio Blood Type Antibody Screen BBK History Checked - Impressions Impression: Imaghing Planar xrays- reveal Garens 1 subcapital fx L hip CT- confirmatort- no evidence for pathologic fx [place] 1 subcapital fx L hip Assessment & Plan - Assessment and Plan (Free Text) Assessment: A- [place]1 subcapital fx L hip P- recommed cannulayted dcsrew fixation L hip fx in minimally invasive procedure.
--- NOTE | 2017-05-19 13:14 | CP.PCM.CON ---
Past Patient History - Infectious Disease Hx of Infectious Diseases: None - Past Medical History & Family History Past Medical History?: Yes - Past Social History Smoking Status: Never Smoked - CARDIAC Hx Cardiac Disorders: Yes Hx Heart Murmur: Yes Hx Hypercholesterolemia: Yes Hx Hypertension: Yes - PULMONARY Hx Pneumonia: Yes (during Infancy) - NEUROLOGICAL Hx Neurological Disorder: No - HEENT Hx HEENT Problems: Yes Hx Cataracts: Yes (ou) - RENAL Hx Chronic Kidney Disease: Yes - ENDOCRINE/METABOLIC Hx Endocrine Disorders: Yes Hx Diabetes Mellitus Type 2: Yes - HEMATOLOGICAL/ONCOLOGICAL Hx Blood Disorders: Yes Hx AIDS: No Hx Blood Transfusions: Yes Hx Blood Transfusion Reaction: No Hx Cancer: Yes (OVARIAN) Hx Chemotherapy: Yes (last chemo may 14, 2017) Hx Human Immunodeficiency Virus (HIV): No - INTEGUMENTARY Hx Dermatological Problems: No - MUSCULOSKELETAL/RHEUMATOLOGICAL Hx Arthritis: Yes Hx Falls: Yes - GASTROINTESTINAL Hx Gastrointestinal Disorders: Yes Hx Gastroesophageal Reflux: Yes (GERD) Other/Comment: ENLARGE LIVER - GENITOURINARY/GYNECOLOGICAL Hx Genitourinary Disorders: Yes Hx Ovarian Cancer: Yes - PSYCHIATRIC Hx Substance Use: No - SURGICAL HISTORY Hx Surgeries: Yes Hx Hysterectomy: Yes Hx Orthopedic Surgery: Yes (rt wrist) Hx Tonsillectomy: Yes - ANESTHESIA Hx Anesthesia: Yes Hx Anesthesia Reactions: No Hx Malignant Hyperthermia: No Meds Allergies/Adverse Reactions: Allergies Allergy/AdvReac Type Severity Reaction Status Date / Time ragweed pollen Allergy SNEEZING Verified 10/11/16 12:02 milk AdvReac DIARRHEA Verified 10/04/16 10:21 - Medications Medications: Current Medications Acetaminophen (Tylenol 325mg Tab) 650 mg PO Q6 PRN PRN Reason: Pain, Mild (1-3) Carvedilol (Coreg) 12.5 mg PO DAILY [facility] Last Admin: 05/19/17 08:51 Dose: 12.5 mg Enoxaparin Sodium (Lovenox) 40 mg SC DAILY [facility] PRN Reason: Protocol Last Admin: 05/19/17 08:47 Dose: Not Given Hydromorphone HCl (Dilaudid) 0.5 mg IVP Q4 PRN PRN Reason: Pain, severe (8-10) Sodium Chloride (Sodium Chloride 0.9%) 1,000 mls @ 100 mls/hr IV .Q10H [facility] Stop: 05/19/17 23:26 Last Admin: 05/19/17 00:21 Dose: Not Given Losartan Potassium (Cozaar) 100 mg PO DAILY [facility] Last Admin: 05/19/17 08:53 Dose: 100 mg Metformin HCl (Glucophage) 500 mg PO BID [facility] Last Admin: 05/19/17 08:52 Dose: 500 mg Sitagliptin Phosphate (Januvia) 50 mg PO DAILY [facility] Last Admin: 05/19/17 08:51 Dose: Not Given Tramadol HCl (Ultram) 50 mg PO Q6 PRN PRN Reason: Pain, moderate (4-7) Results - Vital Signs Recent Vital Signs: Last Vital Signs Temp 98.4 F 05/19/17 08:17 Pulse 84 05/19/17 08:53 Resp 20 05/19/17 08:17 BP 163/76 H 05/19/17 08:53 Pulse Ox 95 05/19/17 08:17 - Labs Result Diagrams: 05/20/17 10:15 05/20/17 10:15 Labs: Laboratory Results - last 24 hr 05/18/17 05/18/17 05/18/17 21:20 21:34 21:34 WBC 6.6 RBC 2.62 L Hgb 8.0 L Hct 24.9 L MCV 95.0 MCH 30.4 MCHC 32.0 L RDW 18.9 H Plt Count 95 L MPV 9.3 Neut % (Auto) 91.1 H Lymph % (Auto) 6.5 L [place] % (Auto) 1.3 Eos % (Auto) 0.7 Baso % (Auto) 0.4 Neut # 6.0 Lymph # 0.4 L [place] # 0.1 Eos # 0.0 Baso # 0.0 Neutrophils % (Manual) 89 H Band Neutrophils % 2 Lymphocytes % (Manual) 6 L Monocytes % (Manual) 2 Eosinophils % (Manual) 1 Platelet Estimate Slightly increased H Large Platelets Present Poikilocytosis (manual Slight Anisocytosis (manual) Moderate Macrocytosis (manual) Slight PT INR Sodium 139 Potassium 4.3 Chloride 105 Carbon Dioxide 24 Anion Gap 14 BUN 25 H Creatinine 1.1 Est GFR ( Amer) 57 Est GFR (Non-Af Amer) 47 POC Glucose (mg/dL) Random Glucose 174 H Calcium 9.3 Total Bilirubin 0.6 AST 45 H D ALT 41 Alkaline Phosphatase 84 Total Protein 6.9 Albumin 3.9 Globulin 3.0 Albumin/Globulin Ratio 1.3 Blood Type O POSITIVE Antibody Screen Negative BBK History Checked Patient has bt 05/18/17 05/19/17 05/19/17 21:34 05:20 05:42 WBC 5.8 RBC 2.49 L Hgb 7.7 L Hct 23.4 L MCV 93.9 MCH 31.0 MCHC 33.0 RDW 19.3 H Plt Count 84 L MPV 8.9 Neut % (Auto) 82.9 H Lymph % (Auto) 12.3 L [place] % (Auto) 0.7 Eos % (Auto) 3.5 Baso % (Auto) 0.6 Neut # 4.8 Lymph # 0.7 L [place] # 0.0 Eos # 0.2 Baso # 0.0 Neutrophils % (Manual) Band Neutrophils % Lymphocytes % (Manual) Monocytes % (Manual) Eosinophils % (Manual) Platelet Estimate Large Platelets Poikilocytosis (manual Anisocytosis (manual) Macrocytosis (manual) PT 12.1 INR 1.1 Sodium Potassium Chloride Carbon Dioxide Anion Gap BUN Creatinine Est GFR ( Amer) Est GFR (Non-Af Amer) POC Glucose (mg/dL) 203 H Random Glucose Calcium Total Bilirubin AST ALT Alkaline Phosphatase Total Protein Albumin Globulin Albumin/Globulin Ratio Blood Type Antibody Screen BBK History Checked 05/19/17 10:56 WBC RBC Hgb Hct MCV MCH MCHC RDW Plt Count MPV Neut % (Auto) Lymph % (Auto) [place] % (Auto) Eos % (Auto) Baso % (Auto) Neut # Lymph # [place] # Eos # Baso # Neutrophils % (Manual) Band Neutrophils % Lymphocytes % (Manual) Monocytes % (Manual) Eosinophils % (Manual) Platelet Estimate Large Platelets Poikilocytosis (manual Anisocytosis (manual) Macrocytosis (manual) PT INR Sodium Potassium Chloride Carbon Dioxide Anion Gap BUN Creatinine Est GFR ( Amer) Est GFR (Non-Af Amer) POC Glucose (mg/dL) 200 H Random Glucose Calcium Total Bilirubin AST ALT Alkaline Phosphatase Total Protein Albumin Globulin Albumin/Globulin Ratio Blood Type Antibody Screen BBK History Checked Assessment & Plan (1) Fall Status: Acute (2) Aortic stenosis Status: Acute (3) HTN (hypertension) Status: Acute (4) Hip fracture Status: Acute - Assessment and Plan (Free Text) Plan: given with Anemia 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 PHYSICAL EXAM AND ECHO MORE CONSISTENT WITH MOD , NOT CRITICAL. PT WILL NEED ORIF, AND IS LOW RISK FOR ORIF FROM CARDIAC PERSPECTIVE SHE DOES NOT HAVE SX OF ACTIVE CORONARY DISEASE OR HEART FAILURE. SHE MAY PROCEED TO OR FOR ORIF.
--- NOTE | 2017-05-19 23:18 | CP.PCM.HP ---
Past Patient History - Infectious Disease Hx of Infectious Diseases: None - Past Medical History & Family History Past Medical History?: Yes - Past Social History Smoking Status: Never Smoked - CARDIAC Hx Cardiac Disorders: Yes Hx Heart Murmur: Yes Hx Hypercholesterolemia: Yes Hx Hypertension: Yes - PULMONARY Hx Pneumonia: Yes (during Infancy) - NEUROLOGICAL Hx Neurological Disorder: No - HEENT Hx HEENT Problems: Yes Hx Cataracts: Yes (ou) - RENAL Hx Chronic Kidney Disease: Yes - ENDOCRINE/METABOLIC Hx Endocrine Disorders: Yes Hx Diabetes Mellitus Type 2: Yes - HEMATOLOGICAL/ONCOLOGICAL Hx Blood Disorders: Yes Hx AIDS: No Hx Blood Transfusions: Yes Hx Blood Transfusion Reaction: No Hx Cancer: Yes (OVARIAN) Hx Chemotherapy: Yes (last chemo may 14, 2017) Hx Human Immunodeficiency Virus (HIV): No - INTEGUMENTARY Hx Dermatological Problems: No - MUSCULOSKELETAL/RHEUMATOLOGICAL Hx Arthritis: Yes Hx Falls: Yes - GASTROINTESTINAL Hx Gastrointestinal Disorders: Yes Hx Gastroesophageal Reflux: Yes (GERD) Other/Comment: ENLARGE LIVER - GENITOURINARY/GYNECOLOGICAL Hx Genitourinary Disorders: Yes Hx Ovarian Cancer: Yes - PSYCHIATRIC Hx Substance Use: No - SURGICAL HISTORY Hx Surgeries: Yes Hx Hysterectomy: Yes Hx Orthopedic Surgery: Yes (rt wrist) Hx Tonsillectomy: Yes - ANESTHESIA Hx Anesthesia: Yes Hx Anesthesia Reactions: No Hx Malignant Hyperthermia: No Meds Allergies/Adverse Reactions: Allergies Allergy/AdvReac Type Severity Reaction Status Date / Time ragweed pollen Allergy SNEEZING Verified 10/11/16 12:02 milk AdvReac DIARRHEA Verified 10/04/16 10:21 Results - Vital Signs Recent Vital Signs: Last Vital Signs Temp 99.6 F 05/19/17 16:18 Pulse 88 05/19/17 16:18 Resp 20 05/19/17 16:18 BP 150/73 05/19/17 16:18 Pulse Ox 95 05/19/17 16:18 - Labs Result Diagrams: 05/19/17 05:20 05/18/17 21:34 Labs: Laboratory Results - last 24 hr 05/19/17 05/19/17 05/19/17 05:20 05:42 10:56 WBC 5.8 RBC 2.49 L Hgb 7.7 L Hct 23.4 L MCV 93.9 MCH 31.0 MCHC 33.0 RDW 19.3 H Plt Count 84 L MPV 8.9 Neut % (Auto) 82.9 H Lymph % (Auto) 12.3 L [place] % (Auto) 0.7 Eos % (Auto) 3.5 Baso % (Auto) 0.6 Neut # 4.8 Lymph # 0.7 L [place] # 0.0 Eos # 0.2 Baso # 0.0 POC Glucose (mg/dL) 203 H 200 H 05/19/17 05/19/17 16:00 21:19 WBC RBC Hgb Hct MCV MCH MCHC RDW Plt Count MPV Neut % (Auto) Lymph % (Auto) [place] % (Auto) Eos % (Auto) Baso % (Auto) Neut # Lymph # [place] # Eos # Baso # POC Glucose (mg/dL) 181 H 188 H
[2017-05-20] MEDS: Sodium Chloride 0.9% 1,000 ML IV SCH (02:59)
[2017-05-20 07:19] LABS: IRON 51 ug/dL (37-170)
[2017-05-20] MEDS: Enoxaparin 40 mg Syringe SC SCH (08:24)
[2017-05-20 10:41] LABS: BASO % 0.7 % (0.0-2.0); EOS # 0.1 K/uL (0.0-0.7); EOS % 3.9 % (0.0-4.0); HEMATOCRIT 23.1 % (34.0-47.0); LYMPH # 0.7 K/uL (1.0-4.3); MEAN CELL VOLUME 95.7 fl (81.0-99.0); MEAN CORPUSCULAR HGB CONC 32.4 g/dL (33.0-37.0); MEAN PLATELET VOLUME 8.2 fl (7.2-11.7); MONO # 0.1 K/uL (0.0-0.8); MONO % 4.1 % (0.0-10.0); NEUT # 2.2 K/uL (1.8-7.0); NEUT % 69.3 % (50.0-75.0); NRBC % 0.2 % (0.0-0.0); RED CELL DISTRIBUTION WIDTH 18.8 % (11.5-14.5); WHITE BLOOD COUNT 3.2 K/uL (4.8-10.8)
[2017-05-20 10:54] LABS: BLOOD UREA NITROGEN 18 mg/dl (7-17); CALCIUM 8.4 mg/dL (8.4-10.2); CARBON DIOXIDE 24 mmol/L (22-30); CHLORIDE 106 mmol/L (98-107); GFR AFRICAN-AMERICAN > 60; GLUCOSE,RANDOM 235 mg/dL (65-105); POTASSIUM 4.4 MMOL/L (3.6-5.0); SODIUM 140 mmol/l (132-148)
--- NOTE | 2017-05-20 13:01 | CP.PCM.PN ---
Subjective - Subjective Subjective: I REVIEWED THE ECHO IMAGES AND BELIEVE MEASUREMENTS ARE UNDERESTIMATING SMILEY. PHYSICAL EXAM AND ECHO MORE CONSISTENT WITH MOD , NOT CRITICAL. PT WILL NEED ORIF, AND IS LOW RISK FOR ORIF FROM CARDIAC PERSPECTIVE SHE DOES NOT HAVE SX OF ACTIVE CORONARY DISEASE OR HEART FAILURE. SHE MAY PROCEED TO OR FOR ORIF. Objective - Vital Signs/Intake and Output Vital Signs (last 24 hours): Temp Pulse Resp BP Pulse Ox 98.5 F 79 20 158/74 H 96 05/20/17 00:19 05/20/17 08:23 05/20/17 00:19 05/20/17 08:23 05/20/17 00:19 - Medications Medications: Current Medications Acetaminophen (Tylenol 325mg Tab) 650 mg PO Q6 PRN PRN Reason: Pain, Mild (1-3) Carvedilol (Coreg) 12.5 mg PO DAILY [facility] Last Admin: 05/20/17 08:22 Dose: 12.5 mg Enoxaparin Sodium (Lovenox) 40 mg SC DAILY [facility] PRN Reason: Protocol Last Admin: 05/20/17 08:24 Dose: Not Given Hydromorphone HCl (Dilaudid) 0.5 mg IVP Q4 PRN PRN Reason: Pain, severe (8-10) Last Admin: 05/20/17 11:12 Dose: 0.5 mg Losartan Potassium (Cozaar) 100 mg PO DAILY [facility] Last Admin: 05/20/17 08:23 Dose: 100 mg Metformin HCl (Glucophage) 500 mg PO BID [facility] Last Admin: 05/20/17 08:22 Dose: 500 mg Sitagliptin Phosphate (Januvia) 50 mg PO DAILY [facility] Last Admin: 05/20/17 08:22 Dose: Not Given Tramadol HCl (Ultram) 50 mg PO Q6 PRN PRN Reason: Pain, moderate (4-7) - Labs Labs: 05/20/17 10:15 05/20/17 10:15 PT 12.1 Seconds (9.8-13.1) 05/18/17 21:34 INR 1.1 (0.9-1.2) 05/18/17 21:34 Assessment and Plan (1) Fall Status: Acute (2) Aortic stenosis Status: Acute (3) HTN (hypertension) Status: Acute (4) Hip fracture Status: Acute
--- NOTE | 2017-05-20 23:23 | CP.PCM.PN ---
Subjective - Date & Time of Evaluation Date of Evaluation: 05/20/17 Time of Evaluation: 12:30 Objective - Vital Signs/Intake and Output Vital Signs (last 24 hours): Temp Pulse Resp BP Pulse Ox 98.3 F 72 20 153/72 H 96 05/20/17 16:09 05/20/17 16:09 05/20/17 16:09 05/20/17 16:09 05/20/17 16:09 - Medications Medications: Current Medications Acetaminophen (Tylenol 325mg Tab) 650 mg PO Q6 PRN PRN Reason: Pain, Mild (1-3) Carvedilol (Coreg) 12.5 mg PO DAILY [facility] Last Admin: 05/20/17 08:22 Dose: 12.5 mg Enoxaparin Sodium (Lovenox) 40 mg SC DAILY [facility] PRN Reason: Protocol Last Admin: 05/20/17 08:24 Dose: Not Given Hydromorphone HCl (Dilaudid) 0.5 mg IVP Q4 PRN PRN Reason: Pain, severe (8-10) Last Admin: 05/20/17 11:12 Dose: 0.5 mg Losartan Potassium (Cozaar) 100 mg PO DAILY [facility] Last Admin: 05/20/17 08:23 Dose: 100 mg Metformin HCl (Glucophage) 500 mg PO BID [facility] Last Admin: 05/20/17 17:00 Dose: 500 mg Sitagliptin Phosphate (Januvia) 50 mg PO DAILY [facility] Last Admin: 05/20/17 08:22 Dose: Not Given Tramadol HCl (Ultram) 50 mg PO Q6 PRN PRN Reason: Pain, moderate (4-7) - Labs Labs: 05/20/17 10:15 05/20/17 10:15 PT 12.1 Seconds (9.8-13.1) 05/18/17 21:34 INR 1.1 (0.9-1.2) 05/18/17 21:34
[2017-05-21] MEDS ORDERED: SENSORCAINE 0.5% W/EPINEPHRINE 50ML MDV IJ ONE (07:14)
[2017-05-21] MEDS ORDERED: Ropivacaine 0.5% 30ML IV ONE (07:16)
[2017-05-21] MEDS ORDERED: Etomidate 20 mg/10ml Inj IV ONE (07:19)
[2017-05-21] MEDS ORDERED: Rocuronium 10 mg/ml (5 ml) ONE ×2 (07:19→09:32)
[2017-05-21] MEDS ORDERED: Succinylcholine 200 mg/10 ml Inj IV ONE (07:19)
[2017-05-21] MEDS ORDERED: Lidocaine 2% Jelly (5 ml) TOP ONE (07:19)
[2017-05-21] MEDS ORDERED: Phenylephrine 10 mg/ml Inj ONE (07:19)
[2017-05-21] MEDS ORDERED: ceFAZolin IV 1 gm in Dextrose 2 GM/100 ML BAG IVPB ONE (07:41)
[2017-05-21] MEDS ORDERED: Bacitracin Ointment 30 GM TUBE ONE (07:41)
[2017-05-21] MEDS ORDERED: Absorbable Gelatin Sponge Size 100 ONE (07:42)
[2017-05-21] MEDS ORDERED: Thrombin Topical 5,000 IU Spray Kit ONE (07:42)
[2017-05-21] MEDS ORDERED: Lactated Ringer's 1,000 ML IV ONE (08:00)
[2017-05-21] MEDS: Enoxaparin 40 mg Syringe SC SCH (08:25)
[2017-05-21] MEDS ORDERED: Sodium Chloride 0.9% 500 ML IV ONE (08:30)
[2017-05-21] MEDS ORDERED: ceFAZolin IV 1 gm in Dextrose 1 GM/50 ML BAG IVPB ONE (09:20)
[2017-05-21] MEDS ORDERED: Sevoflurane - Inhalation Anesthetic Liq (250 ml) ONE (09:41)
[2017-05-21] MEDS ORDERED: Metoprolol 1 mg/ml Inj IVP ONE (09:52)
[2017-05-21] MEDS ORDERED: Neostigmine Methylsulfate 2 MG/2 ML ML IV ONE (10:03)
--- NOTE | 2017-05-21 10:41 | PCM.ANESB3 ---
Femoral Nerve Block - Femoral Nerve Block Date of Procedure: 05/21/17 Anesthesiologist: Mk Pre-Procedure Diagnosis: Left hip fracture Post-Procedure Diagnosis: Same Procedure Performed: Femoral Nerve Block Left - Procedure Femoral Nerve Block: The procedure was explained to the patient that it is for the post-operative pain management. Consent was obtained after a thorough discussion with the patient regarding the benefits and possible complications of local anesthetic block of the femoral nerve at the inguinal crease area. The patient was brought to the operating room and standard monitors were applied. Time-out was held with the circulating nurse to confirm the correct surgery and the appropriate block. Under general anesthesia, patient was placed in supine position with fully extended lower extremities and the ____left____ groin exposed. The femoral artery was then carefully palpated. The ultrasound transducer was then applied to this area in the transverse plane and the femoral nerve was visualized lateral to the femoral artery and underneath the fascia iliaca. After thorough identification, the inguinal crease area was prepped with Chloraprep. At this point, a #22 gauge Stimuplex 4-inch needle was inserted immediately lateral to the femoral artery pulse at the inguinal crease and advanced perpendicularly. The needle was inserted to the ultrasound transducer in-plane towards the femoral nerve in a [id number] direction. Needle advancement was performed carefully under direct ultrasound visualization. Nerve stimulator was used and twitch of the quadriceps muscle was obtained at current of __0.4___ MA. After negative aspiration, __2___cc of _0.25____% ropivicaine was injected and this was followed with _38 cc of ___0.25____ % _ropivicaine . Under ultrasound guidance the local anesthetics were observed spreading below fascia iliaca and around the femoral nerve and laterally in the direction of the lateral femoral cutaneous nerve. The needle was removed intact. The patient tolerated the femoral nerve block well with stable vital signs and was prepared for subsequent surgery.
--- NOTE | 2017-05-21 11:17 | RAD ---
PROCEDURE: Intraoperative Fluoroscopy. HISTORY: LEFT HIP FINDINGS: Fluoroscopic assistance was provided. 90.7 seconds fluoroscopy time utilized during this procedure. . Please refer to the operative report for further evaluation.
--- NOTE | 2017-05-21 11:58 | RAD ---
PROCEDURE: Left Hip X-ray Radiographs. HISTORY: s/p ORIF left hip COMPARISON: None. FINDINGS: BONES: Three partially fenestrated screws traverse the known fracture proximal left femur. JOINTS: Normal. SOFT TISSUES: Normal. OTHER FINDINGS: None. IMPRESSION: Satisfactory postoperative status.
--- NOTE | 2017-05-21 12:40 | CARD ---
APPROVED REPORT EKG Measurement Heart [id number] <Conclusion> Normal sinus rhythm Inferior infarct, age undetermined ST & T wave abnormality, consider anterolateral ischemia Abnormal ECG
--- NOTE | 2017-05-21 15:07 | PCM.SURG1 ---
Surgeon's Initial Post Op Note - Surgeon's Notes Surgeon: Hilda Broach Grinder: CHARITO Miranda Type of Anesthesia: General Endo, Spinal Anesthesia Administered By: DR Solis Pre-Operative Diagnosis: gARDENS 1 SUBCAPITAL FX l FEMUR Operative Findings: ABOVE Post-Operative Diagnosis: as above Operation Performed: ORIF L subcapital fx. positionf of fluor/interpretation of video images Specimen/Specimens Removed: N/A Estimated Blood Loss: EBL {In ML}: 50 Blood Products Given: N/A Drains Used: No Drains Post-Op Condition: Good Date of Surgery/Procedure: 05/21/17 Time of Surgery/Procedure: 09:40 (timne in room/anesthesia indcution time9:40)
[2017-05-21] MEDS: Oxycodone/Acetaminophen 5/325 mg Tab PO PRN ×2 (16:55→21:46)
[2017-05-21] MEDS: ceFAZolin IV 1 gm in Dextrose 1 GM/50 ML BAG IVPB SCH (16:57)
[2017-05-21] MEDS: Lactated Ringer's 1,000 ML IV SCH (17:46)
--- NOTE | 2017-05-21 18:09 | CP.PCM.PN ---
Subjective - Date & Time of Evaluation Date of Evaluation: 05/21/17 Time of Evaluation: 18:09 Objective - Vital Signs/Intake and Output Vital Signs (last 24 hours): Temp Pulse Resp BP Pulse Ox 97.9 F 99 H 20 127/74 96 05/21/17 17:41 05/21/17 17:41 05/21/17 17:41 05/21/17 17:41 05/21/17 17:41 Intake and Output: 05/21/17 05/21/17 06:59 18:59 Intake Total 975 Output Total 500 Balance 475 - Medications Medications: Current Medications Acetaminophen (Tylenol 325mg Tab) 650 mg PO Q6 PRN PRN Reason: Pain, Mild (1-3) Carvedilol (Coreg) 12.5 mg PO DAILY [facility] Last Admin: 05/21/17 08:24 Dose: Not Given Docusate Sodium (Colace) 100 mg PO BID [facility] Last Admin: 05/21/17 17:03 Dose: Not Given Enoxaparin Sodium (Lovenox) 40 mg SC DAILY [facility] PRN Reason: Protocol Hydromorphone HCl (Dilaudid) 0.5 mg IVP Q4 PRN PRN Reason: Pain, severe (8-10) Last Admin: 05/20/17 11:12 Dose: 0.5 mg Lactated Ringer's (Lactated Ringer's) 1,000 mls @ 50 mls/hr IV .Q20H [facility] Last Admin: 05/21/17 17:46 Dose: Not Given Cefazolin Sodium/Dextrose (Ancef Iv 1 Gm Duplex) 1 gm in 50 mls @ 50 mls/hr IVPB Q8 [facility] PRN Reason: Protocol Stop: 05/22/17 01:59 Last Admin: 05/21/17 16:57 Dose: 50 mls/hr Losartan Potassium (Cozaar) 100 mg PO DAILY [facility] Last Admin: 05/21/17 08:24 Dose: Not Given Metformin HCl (Glucophage) 500 mg PO BID [facility] Last Admin: 05/21/17 17:00 Dose: 500 mg Oxycodone/Acetaminophen (Percocet 5/325 Mg Tab) 1 tab PO Q4 PRN PRN Reason: Pain, moderate (4-7) Stop: 05/24/17 11:21 Last Admin: 05/21/17 16:55 Dose: 1 tab Sitagliptin Phosphate (Januvia) 50 mg PO DAILY [facility] Last Admin: 05/21/17 08:24 Dose: Not Given Tramadol HCl (Ultram) 50 mg PO Q6 PRN PRN Reason: Pain, moderate (4-7) Last Admin: 05/21/17 00:09 Dose: 50 mg - Labs Labs: 05/20/17 10:15 05/20/17 10:15 PT 12.1 Seconds (9.8-13.1) 05/18/17 21:34 INR 1.1 (0.9-1.2) 05/18/17 21:34 Assessment and Plan (1) Fall Status: Acute (2) Aortic stenosis Status: Acute (3) HTN (hypertension) Status: Acute (4) Hip fracture Status: Acute - Assessment and Plan (Free Text) Plan: PT DOING WELL POST ORIF. NO CP OR DYSPNEA. NO ORTHOPNEA. HR AND BP STABLE. CONTINUE SAME MEDICATIONS.
--- NOTE | 2017-05-21 23:58 | CP.PCM.PN ---
Subjective - Date & Time of Evaluation Date of Evaluation: 05/21/17 Time of Evaluation: 07:55 Objective - Vital Signs/Intake and Output Vital Signs (last 24 hours): Temp Pulse Resp BP Pulse Ox 97.9 F 99 H 20 127/74 96 05/21/17 17:41 05/21/17 17:41 05/21/17 17:41 05/21/17 17:41 05/21/17 17:41 Intake and Output: 05/21/17 05/22/17 18:59 06:59 Intake Total 975 Output Total 1200 Balance -225 - Medications Medications: Current Medications Acetaminophen (Tylenol 325mg Tab) 650 mg PO Q6 PRN PRN Reason: Pain, Mild (1-3) Carvedilol (Coreg) 12.5 mg PO DAILY [facility] Last Admin: 05/21/17 08:24 Dose: Not Given Docusate Sodium (Colace) 100 mg PO BID [facility] Last Admin: 05/21/17 17:03 Dose: Not Given Enoxaparin Sodium (Lovenox) 40 mg SC DAILY [facility] PRN Reason: Protocol Hydromorphone HCl (Dilaudid) 0.5 mg IVP Q4 PRN PRN Reason: Pain, severe (8-10) Last Admin: 05/20/17 11:12 Dose: 0.5 mg Lactated Ringer's (Lactated Ringer's) 1,000 mls @ 50 mls/hr IV .Q20H [facility] Last Admin: 05/21/17 17:46 Dose: Not Given Cefazolin Sodium/Dextrose (Ancef Iv 1 Gm Duplex) 1 gm in 50 mls @ 50 mls/hr IVPB Q8 [facility] PRN Reason: Protocol Stop: 05/22/17 01:59 Last Admin: 05/21/17 16:57 Dose: 50 mls/hr Losartan Potassium (Cozaar) 100 mg PO DAILY [facility] Last Admin: 05/21/17 08:24 Dose: Not Given Metformin HCl (Glucophage) 500 mg PO BID [facility] Last Admin: 05/21/17 17:00 Dose: 500 mg Oxycodone/Acetaminophen (Percocet 5/325 Mg Tab) 1 tab PO Q4 PRN PRN Reason: Pain, moderate (4-7) Stop: 05/24/17 11:21 Last Admin: 05/21/17 21:46 Dose: 1 tab Sitagliptin Phosphate (Januvia) 50 mg PO DAILY [facility] Last Admin: 05/21/17 08:24 Dose: Not Given Tramadol HCl (Ultram) 50 mg PO Q6 PRN PRN Reason: Pain, moderate (4-7) Last Admin: 05/21/17 00:09 Dose: 50 mg - Labs Labs: 05/20/17 10:15 05/20/17 10:15 PT 12.1 Seconds (9.8-13.1) 05/18/17 21:34 INR 1.1 (0.9-1.2) 05/18/17 21:34
[2017-05-22] MEDS: ceFAZolin IV 1 gm in Dextrose 1 GM/50 ML BAG IVPB SCH (01:51)
[2017-05-22] MEDS: Oxycodone/Acetaminophen 5/325 mg Tab PO PRN (04:58)
[2017-05-22 06:29] LABS: HEMATOCRIT 26.9 % (34.0-47.0); MEAN CELL VOLUME 92.5 fl (81.0-99.0); MEAN CORPUSCULAR HEMOGLOBIN 31.1 pg (27.0-31.0); MEAN CORPUSCULAR HGB CONC 33.6 g/dL (33.0-37.0); RED CELL DISTRIBUTION WIDTH 18.3 % (11.5-14.5); WHITE BLOOD COUNT 5.6 K/uL (4.8-10.8)
[2017-05-22 06:47] LABS: CALCIUM 8.1 mg/dL (8.4-10.2); POTASSIUM 4.2 MMOL/L (3.6-5.0)
--- NOTE | 2017-05-22 07:59 | CP.PCM.PN ---
Subjective - Date & Time of Evaluation Date of Evaluation: 05/22/17 Time of Evaluation: 07:57 - Subjective Subjective: Patient states she has pain in her hip when she moves around, but controlled. Denies CP/SOB/dizziness. Objective - Vital Signs/Intake and Output Vital Signs (last 24 hours): Temp Pulse Resp BP Pulse Ox 98.2 F 85 18 131/78 95 05/22/17 07:29 05/22/17 07:29 05/22/17 07:29 05/22/17 07:29 05/22/17 07:29 Intake and Output: 05/22/17 05/22/17 06:59 18:59 Intake Total 100 Output Total 1000 Balance -900 - Medications Medications: Current Medications Acetaminophen (Tylenol 325mg Tab) 650 mg PO Q6 PRN PRN Reason: Pain, Mild (1-3) Carvedilol (Coreg) 12.5 mg PO DAILY [facility] Last Admin: 05/21/17 08:24 Dose: Not Given Docusate Sodium (Colace) 100 mg PO BID [facility] Last Admin: 05/21/17 17:03 Dose: Not Given Enoxaparin Sodium (Lovenox) 40 mg SC DAILY [facility] PRN Reason: Protocol Hydromorphone HCl (Dilaudid) 0.5 mg IVP Q4 PRN PRN Reason: Pain, severe (8-10) Last Admin: 05/20/17 11:12 Dose: 0.5 mg Lactated Ringer's (Lactated Ringer's) 1,000 mls @ 50 mls/hr IV .Q20H [facility] Last Admin: 05/21/17 17:46 Dose: Not Given Losartan Potassium (Cozaar) 100 mg PO DAILY [facility] Last Admin: 05/21/17 08:24 Dose: Not Given Metformin HCl (Glucophage) 500 mg PO BID [facility] Last Admin: 05/21/17 17:00 Dose: 500 mg Oxycodone/Acetaminophen (Percocet 5/325 Mg Tab) 1 tab PO Q4 PRN PRN Reason: Pain, moderate (4-7) Stop: 05/24/17 11:21 Last Admin: 05/22/17 04:58 Dose: 1 tab Sitagliptin Phosphate (Januvia) 50 mg PO DAILY [facility] Last Admin: 05/21/17 08:24 Dose: Not Given Tramadol HCl (Ultram) 50 mg PO Q6 PRN PRN Reason: Pain, moderate (4-7) Last Admin: 05/21/17 00:09 Dose: 50 mg - Labs Labs: 05/22/17 05:10 05/22/17 05:10 PT 12.1 Seconds (9.8-13.1) 05/18/17 21:34 INR 1.1 (0.9-1.2) 05/18/17 21:34 - Extremities Exam Additional comments: left hip: small amount of drainage on bandage. Moderate swelling to thigh, soft. +ROM ankle/toes, sensation intact, +DP pulse, calves soft NT neg homans Assessment and Plan (1) Nondisplaced fracture of neck of left femur Assessment & Plan: POD#1 s/p left hip pinning -more bleeding and swelling than typical -lovenox held due to low platelets, will defer VTE proph to medical doctor -PT/OT -venodynes -d/c planning -d/w Dr. Calzada, agrees with above Status: Acute
--- NOTE | 2017-05-22 08:06 | CP.PCM.PN ---
Subjective - Date & Time of Evaluation Date of Evaluation: 05/22/17 Time of Evaluation: 07:50 - Subjective Subjective: S- pt comfortable+;minimal popst op discomfort Objective - Vital Signs/Intake and Output Vital Signs (last 24 hours): Temp Pulse Resp BP Pulse Ox 98.2 F 85 18 131/78 95 05/22/17 07:29 05/22/17 07:29 05/22/17 07:29 05/22/17 07:29 05/22/17 07:29 Intake and Output: 05/22/17 05/22/17 06:59 18:59 Intake Total 100 Output Total 1000 Balance -900 - Medications Medications: Current Medications Acetaminophen (Tylenol 325mg Tab) 650 mg PO Q6 PRN PRN Reason: Pain, Mild (1-3) Carvedilol (Coreg) 12.5 mg PO DAILY [facility] Last Admin: 05/21/17 08:24 Dose: Not Given Docusate Sodium (Colace) 100 mg PO BID [facility] Last Admin: 05/21/17 17:03 Dose: Not Given Hydromorphone HCl (Dilaudid) 0.5 mg IVP Q4 PRN PRN Reason: Pain, severe (8-10) Last Admin: 05/20/17 11:12 Dose: 0.5 mg Lactated Ringer's (Lactated Ringer's) 1,000 mls @ 50 mls/hr IV .Q20H [facility] Last Admin: 05/21/17 17:46 Dose: Not Given Losartan Potassium (Cozaar) 100 mg PO DAILY [facility] Last Admin: 05/21/17 08:24 Dose: Not Given Metformin HCl (Glucophage) 500 mg PO BID [facility] Last Admin: 05/21/17 17:00 Dose: 500 mg Oxycodone/Acetaminophen (Percocet 5/325 Mg Tab) 1 tab PO Q4 PRN PRN Reason: Pain, moderate (4-7) Stop: 05/24/17 11:21 Last Admin: 05/22/17 04:58 Dose: 1 tab Sitagliptin Phosphate (Januvia) 50 mg PO DAILY [facility] Last Admin: 05/21/17 08:24 Dose: Not Given Tramadol HCl (Ultram) 50 mg PO Q6 PRN PRN Reason: Pain, moderate (4-7) Last Admin: 05/21/17 00:09 Dose: 50 mg - Labs Labs: 05/22/17 05:10 05/22/17 05:10 PT 12.1 Seconds (9.8-13.1) 05/18/17 21:34 INR 1.1 (0.9-1.2) 05/18/17 21:34 - Additional Findings Additional findings: O/E: Musculoskekltal stance/gait- defrred L hip dressing dry and intact orthopedically stable post op xrays- acceptable position of construct Assessment and Plan - Assessment and Plan (Free Text) Assessment: A- s/p orif l subcapital femur fx P physio toe touch weight bearing with walker
--- NOTE | 2017-05-22 08:31 | CARD ---
APPROVED REPORT EKG Measurement Heart [id number] <Conclusion> Normal sinus rhythm Left axis deviation Inferior infarct, age undetermined Anterior infarct, age undetermined ST & T wave abnormality, consider lateral ischemia Abnormal ECG
[2017-05-22] MEDS: Enoxaparin 40 mg Syringe SC SCH ×2 (09:00→18:56)
[2017-05-22] MEDS ORDERED: Enoxaparin 40 mg Syringe SC SCH (09:00)
--- NOTE | 2017-05-22 10:29 | PCM.RRT ---
GARDEN CENTER MANAGER Nurse Assessment - Situation GARDEN CENTER MANAGER Responder Arrival Time: 09:17 Location: [address] [place] [address] Room Number: 650-1 GARDEN CENTER MANAGER Reason for Call: Hypotension GARDEN CENTER MANAGER Called By: RN - IV IV Inserted during GARDEN CENTER MANAGER?: No IV Fluids Initiated During GARDEN CENTER MANAGER?: NS 200 cc bolus, NS 100cc/hr - Respiratory Oxygen Delivery Method: Room Air Received Nebulizer Treatments: No Was the Patient Ventilated with Bag/Mask 100% O2?: No Secretions Suctioned?: No Was the Patient Intubated?: No Was the Patient Placed on a Ventilator?: No - Medication Medications Administered During GARDEN CENTER MANAGER: none - Diagnostic Test Ordered EKG: No Chest X-Ray: No CT Scan: No CPR started during GARDEN CENTER MANAGER?: No - Vital Signs Vital Signs: BP 52/39 KS 62 RR 20 Temperature - O2 Sat by pulse oximetry 99% - [place] Coma Scale Coma Scale Eye Opening: Spontaneous Coma Scale Motor: Obeys Commands Movement Coma Scale Verbal: Oriented Coma Scale Total: 15 - Sepsis Screen Part 1 Sepsis Screen Part 1: Hypotensive - Sepsis Screen Part 2 Sepsis Screen Part 2: Glucose elevated, Pt not on steroids - Time GARDEN CENTER MANAGER Ended Time GARDEN CENTER MANAGER Ended: 09:28 - Vital Signs at end of GARDEN CENTER MANAGER Vital Signs at end of GARDEN CENTER MANAGER: BP 137/75 KS 62 RR - Temperature - O2 Sat by pulse oximetry 99% - Recommendations GARDEN CENTER MANAGER Level of Care Recommendations: Remain in current setting Notifications: Attending Physician I.Reason for GARDEN CENTER MANAGER - A) Acute Change in Patient: (Select all that apply): Acute change in SBP below - Neurological Status (Select all that apply): Alert, Responsive, Oriented, Verbal, Follows Commands. absent: Disoriented, Confused, Lethargic, Aggressive, Weakness - Respiratory Oxygen Delivery Method: Room Air - Constitutional Appears: Well, Non-toxic, No Acute Distress - Head Head Exam: ATRAUMATIC, NORMAL INSPECTION, NORMOCEPHALIC - Eyes Eye Exam: EOMI, Normal appearance, PERRL - Respiratory Exam Respiratory Exam: absent: Respiratory Distress - GI/Abdominal Exam GI & Abdominal Exam: absent: Tenderness - Neurological Exam Neurological Exam: Alert, Awake, Oriented x3 - Extremities Exam Extremities Exam: Full ROM, Normal Inspection. absent: Pedal Edema Plan - Assessment of Findings&Treatment Plan Patient was seen at bedside in Med/Surg after GARDEN CENTER MANAGER was called by RN due to dizziness + hypotension. Upon arrival patient was seen lying in bed placed on Trendelenburg position. Patient AAOx3, responsive, communicative. GARDEN CENTER MANAGER Vitals: BP 52/39 KS 62 RR 20 Temperature - O2 Sat by pulse oximetry 99% GARDEN CENTER MANAGER Intervention: 1 - IV NS bolus given 200 cc 2 - IV fluids started NS at 100 cc/hr A: 81 year old female PMHx Arthritis, Diabetes, GERD, HTN, Hypercholesterolemia , Pneumonia (during Infancy), Chronic Kidney Disease, heart murmur, ovarian CA POD#1 ORIF left subcapital femur fx with hypotension likely secondary to BP meds + dehydration GARDEN CENTER MANAGER Outcome: 1. Pt stable, will remain in Med/Surg 2. IVF bolus and continue IVF maintenance 3. Continue to monitor 4. Consult PMD Seman
--- NOTE | 2017-05-22 12:01 | OP ---
PROCEDURE DATE: 05/21/2017 PREOPERATIVE DIAGNOSIS: Garden's I subcapital fracture of the left femur. POSTOPERATIVE DIAGNOSIS: Garden's I subcapital fracture of the left femur. PROCEDURES: 1. Open reduction and internal fixation of Garden's I left subcapital femur fracture. 2. Positioning of fluoroscope interpretation of the video images. SURGEON: Akhil Stevens MD EQUIPMENT DETAILER: Sonia Bustos, certified registered nursing sampler first. SECOND TRUCK DRIVER'S OFFSIDER: Sean Clark. TYPE OF ANESTHESIA: Spinal and general anesthesia. ANESTHESIA ADMINISTERED BY: Paras Terrazas MD OPERATIVE INDICATION: Tamia Quinonez is an 81-year-old woman who has diagnosed ovarian cancer, who presents with pain and restricted range of motion of the left hip. The patient has sustained a fall, was admitted with diagnosis of subcapital left hip fracture. Pros, cons, risks, and benefits of open reduction and internal fixation were discussed; the possibility of mechanical failure; infection; thromboembolic disease; secondary or tertiary surgery was discussed. The patient can no longer withstand the discomfort. DESCRIPTION OF PROCEDURE: After having obtained informed consent in the above fashion; after having identified side, site, and procedure and a critical pause/time-out; after the satisfactory induction of the anesthetic, the patient identified as Tamia Quinnoez in the supine position in the traction. The left lower extremity was prepped and re-draped in usual fashion for lower extremity surgery. The fracture was introduced with traction and general internal rotation. After sterilely prepping and draping under the surgeon's direction, fluoroscope was positioned; video images were generated; and the therapeutic decisions were made therefrom. After sterilely prepping and draping, the trochanteric prominence was identified on AP image intensification views. An incision was accomplished 4 fingerbreadths distal and the skin incision was carried down through the skin and subcutaneous tissue. At this point, a guidewire was placed superficial of the skin in-line with a proposed trajectory of the 7.2 cannulated screws. At this point in time, a second guidewire was placed just cephalad and verifications offered on AP and lateral image intensification views. The appropriate size short threaded screw was measured to approximately 85 mm, 2 screws were introduced and verification of position is offered on AP and lateral image intensification views. A third wire was accomplished cephalad and an anterior trajectory found to be in acceptable position on AP and lateral image intensification views. Measurement of 75 mm of these screws introduced. The wound was thoroughly irrigated. Position was found to be excellent on AP and lateral image intensification views. Closures in layers with interrupted Quill followed by Vicryl and lena for skin. Compression dressing was applied. It should be noted that the certified registered nursing sampler first, Sonia Bustos, was essential for the completion of this operation in all planes. Akhil Stevens MD
[2017-05-23] MEDS: Oxycodone/Acetaminophen 5/325 mg Tab PO PRN ×2 (01:49→15:48)
[2017-05-23] MEDS: Lactated Ringer's 1,000 ML IV SCH (01:53)
[2017-05-23 06:03] LABS: BLOOD UREA NITROGEN 20 mg/dl (7-17); CARBON DIOXIDE 25 mmol/L (22-30); CHLORIDE 105 mmol/L (98-107); GFR AFRICAN-AMERICAN > 60; GLUCOSE,RANDOM 155 mg/dL (65-105); MEAN CELL VOLUME 93.7 fl (81.0-99.0); MEAN CORPUSCULAR HEMOGLOBIN 30.6 pg (27.0-31.0); MEAN CORPUSCULAR HGB CONC 32.6 g/dL (33.0-37.0); POTASSIUM 4.1 MMOL/L (3.6-5.0); RED CELL DISTRIBUTION WIDTH 18.4 % (11.5-14.5); SODIUM 139 mmol/l (132-148); WHITE BLOOD COUNT 5.9 K/uL (4.8-10.8)
[2017-05-23 07:24] VITALS: RESP 18; O2SAT 95
[2017-05-23] MEDS: Enoxaparin 40 mg Syringe SC SCH (08:14)
--- NOTE | 2017-05-23 10:21 | CP.PCM.PN ---
Subjective - Date & Time of Evaluation Date of Evaluation: 05/23/17 Time of Evaluation: 10:19 - Subjective Subjective: Patient states she tolerated PT well, she was happy to be out of bed in the chair. Denies CP/SOB/dizziness/palp. Pain is better today. Objective - Vital Signs/Intake and Output Vital Signs (last 24 hours): Temp Pulse Resp BP Pulse Ox 98.0 F 84 18 124/76 95 05/23/17 07:23 05/23/17 08:16 05/23/17 07:23 05/23/17 08:16 05/23/17 07:23 - Medications Medications: Current Medications Acetaminophen (Tylenol 325mg Tab) 650 mg PO Q6 PRN PRN Reason: Pain, Mild (1-3) Carvedilol (Coreg) 12.5 mg PO DAILY [facility] Last Admin: 05/23/17 08:16 Dose: 12.5 mg Docusate Sodium (Colace) 100 mg PO BID [facility] Last Admin: 05/23/17 08:14 Dose: 100 mg Enoxaparin Sodium (Lovenox) 40 mg SC DAILY [facility] PRN Reason: Protocol Last Admin: 05/23/17 08:14 Dose: 40 mg Hydromorphone HCl (Dilaudid) 0.5 mg IVP Q4 PRN PRN Reason: Pain, severe (8-10) Last Admin: 05/23/17 05:19 Dose: 0.5 mg Lactated Ringer's (Lactated Ringer's) 1,000 mls @ 50 mls/hr IV .Q20H [facility] Last Admin: 05/23/17 01:53 Dose: 50 mls/hr Losartan Potassium (Cozaar) 100 mg PO DAILY [facility] Last Admin: 05/23/17 08:16 Dose: 100 mg Metformin HCl (Glucophage) 500 mg PO BID [facility] Last Admin: 05/23/17 08:13 Dose: 500 mg Oxycodone/Acetaminophen (Percocet 5/325 Mg Tab) 1 tab PO Q4 PRN PRN Reason: Pain, moderate (4-7) Stop: 05/24/17 11:21 Last Admin: 05/23/17 01:49 Dose: 1 tab Sitagliptin Phosphate (Januvia) 50 mg PO DAILY [facility] Last Admin: 05/23/17 08:14 Dose: Not Given Tramadol HCl (Ultram) 50 mg PO Q6 PRN PRN Reason: Pain, moderate (4-7) Last Admin: 05/22/17 11:09 Dose: 50 mg - Labs Labs: 05/23/17 05:15 05/23/17 05:15 PT 12.1 Seconds (9.8-13.1) 05/18/17 21:34 INR 1.1 (0.9-1.2) 05/18/17 21:34 - Extremities Exam Additional comments: Left thigh: swollen, but improved from yesterday. Scant drainage on bandage. No erythema. Thigh softer. +ROM ankle/toes, sensationintact +DP/PT pulses, Left calf slightly swollen and tender, no palpable cords Assessment and Plan (1) Nondisplaced fracture of neck of left femur Assessment & Plan: POD# 2 s/p left hip pinning -VTE proph -PT/OT-d/c planning to rehab -encourage OOB -dopplers r/o DVT -labs reviewed -d/w Dr. tSevens, agrees with above Status: Acute
--- NOTE | 2017-05-23 10:27 | PQF GENQUE ---
This form is a permanent part of the medical record 05/23/17 Dr. Corrigan, Would you please clarify if there is an associated diagnosis or not to go along with the low H&H findings which were present on admission. If yes please document etiology/type. Patient with a history of Ovarian Cancer, HTN and DM presents s/p fall . C/O Left hip and elbow pain and diagnosed with Subcapital Impaction fracture L hip. S/P ORIF with EBL of 50cc. Noted to have a low H&H on admission. MCV and MCH Normal. Treated with transfusion of PRBC. H&H runnin.9, 7.7/23.4, 7.5/23.1, 9.1/.9, 8.8/. Clarification of your documentation is requested to better reflect the severity of illness and intensity of treatment of your patient. 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 Present On Admission (POA) Indicator: [X] Present at the time of admission [] Not present at the time of admission [] Clinically Undetermined In responding to this query, please exercise your independent professional judgment. The fact that a question is asked does not imply that any particular answer is desired or expected. Thank you for your clarification on this documentation. If you have any questions please call:ext [phone] * Thank you, Linda Burgos RN CDMP [facility]
--- NOTE | 2017-05-23 10:39 | PQF GENQUE ---
This form is a permanent part of the medical record 05/23/17 Dr. Corrigan, Would you please clarify if there is an associated diagnosis or not to go along with the platelet findings. If yes please document along with the possible etiology if known. Progress note on 05/22/17 of the vice president regulatory has Lovenox held due to low platelets, will defer VTE proph to medical doctor. Platelets: 95, 84, 61, 43, 48. Clarification of your documentation is requested to better reflect the severity of illness and intensity of treatment of your patient. Indicators present [] Specify: [] [] Specify: [] [] Specify: [] [] Specify: [] Location in the medical record that reflects the above clinical findings: [] Treatment Provided: [] PHYSICIAN'S RESPONSE Based on your medical judgment of the clinical indicators outlined above please clarify the following: [X] Practitioner response: Thrombocytopenia due to Chemotherapy [] If unable to determine, please check the box, sign and date. Present On Admission (POA) Indicator: [X] Present at the time of admission [] Not present at the time of admission [] Clinically Undetermined In responding to this query, please exercise your independent professional judgment. The fact that a question is asked does not imply that any particular answer is desired or expected. Thank you for your clarification on this documentation. If you have any questions please call:extension [phone] * Thank you, Linda Burgos RN [facility]
--- NOTE | 2017-05-23 12:31 | US ---
PROCEDURE: Bilateral lower extremity venous duplex Doppler. HISTORY: left calf pain and swelling, r/o DVT COMPARISON: None available. TECHNIQUE: Bilateral common femoral, superficial femoral, popliteal and posterior tibial veins were evaluated. Flow was assessed with color Doppler, compressibility, assessment of phasic flow and augmentation response. FINDINGS: COMMON FEMORAL VEIN: Right CFV: Unremarkable. Left CFV: Unremarkable. SUPERFICIAL FEMORAL VEIN: Right SFV: Unremarkable. Left SFV: Unremarkable. POPLITEAL VEIN: Right Popliteal: Unremarkable. Left Popliteal: Unremarkable. POSTERIOR TIBIAL VEIN: Right PTV: Unremarkable. Left PTV: Unremarkable. OTHER FINDINGS: None. IMPRESSION: No evidence of deep venous thrombosis.
[2017-05-23 16:15] VITALS: BP 151/69; PULSE 78; TEMP 98.7
--- NOTE | 2017-05-23 22:07 | CP.PCM.PN ---
Subjective - Date & Time of Evaluation Date of Evaluation: 05/22/17 Time of Evaluation: 17:45 Objective - Vital Signs/Intake and Output Vital Signs (last 24 hours): Temp Pulse Resp BP Pulse Ox 98.7 F 78 18 151/69 H 95 05/23/17 16:14 05/23/17 16:14 05/23/17 16:14 05/23/17 16:14 05/23/17 16:14 - Labs Labs: 05/23/17 05:15 05/23/17 05:15 PT 12.1 Seconds (9.8-13.1) 05/18/17 21:34 INR 1.1 (0.9-1.2) 05/18/17 21:34
--- NOTE | 2017-05-23 22:10 | CP.PCM.DIS ---
Provider - Provider Date of Admission: 05/18/17 20:44 Attending physician: Luisa Corrigan MD Time Spent in preparation of Discharge (in minutes): 25 Hospital Course - Lab Results Lab Results: Most Recent Lab Values WBC 5.9 K/uL (4.8-10.8) 05/23/17 05:15 RBC 2.89 Mil/uL (3.80-5.20) L 05/23/17 05:15 Hgb 8.8 g/dL (12.0-16.0) L 05/23/17 05:15 Hct 27.0 % (34.0-47.0) L 05/23/17 05:15 MCV 93.7 fl (81.0-99.0) 05/23/17 05:15 MCH 30.6 pg (27.0-31.0) 05/23/17 05:15 MCHC 32.6 g/dL (33.0-37.0) L 05/23/17 05:15 RDW 18.4 % (11.5-14.5) H 05/23/17 05:15 Plt Count 48 K/uL (130-400) L 05/23/17 05:15 MPV 8.2 fl (7.2-11.7) 05/20/17 10:15 Neut % (Auto) 69.3 % (50.0-75.0) 05/20/17 10:15 Lymph % (Auto) 22.0 % (20.0-40.0) 05/20/17 10:15 [place] % (Auto) 4.1 % (0.0-10.0) 05/20/17 10:15 Eos % (Auto) 3.9 % (0.0-4.0) 05/20/17 10:15 Baso % (Auto) 0.7 % (0.0-2.0) 05/20/17 10:15 Neut # 2.2 K/uL (1.8-7.0) 05/20/17 10:15 Lymph # 0.7 K/uL (1.0-4.3) L 05/20/17 10:15 [place] # 0.1 K/uL (0.0-0.8) 05/20/17 10:15 Eos # 0.1 K/uL (0.0-0.7) 05/20/17 10:15 Baso # 0.0 K/uL (0.0-0.2) 05/20/17 10:15 Neutrophils % (Manual) 89 % (42-75) H 05/18/17 21:34 Band Neutrophils % 2 % (0-2) 05/18/17 21:34 Lymphocytes % (Manual) 6 % (20-50) L 05/18/17 21:34 Monocytes % (Manual) 2 % (0-10) 05/18/17 21:34 Eosinophils % (Manual) 1 % (0-7) 05/18/17 21:34 Platelet Estimate Slightly increased (NORMAL) H 05/18/17 21:34 Large Platelets Present 05/18/17 21:34 Poikilocytosis (manual Slight 05/18/17 21:34 Anisocytosis (manual) Moderate 05/18/17 21:34 Macrocytosis (manual) Slight 05/18/17 21:34 Haptoglobin 257 mg/dL (43-212) H 05/20/17 05:20 PT 12.1 Seconds (9.8-13.1) 05/18/17 21:34 INR 1.1 (0.9-1.2) 05/18/17 21:34 Sodium 139 mmol/l (132-148) 05/23/17 05:15 Potassium 4.1 MMOL/L (3.6-5.0) 05/23/17 05:15 Chloride 105 mmol/L (98-107) 05/23/17 05:15 Carbon Dioxide 25 mmol/L (22-30) 05/23/17 05:15 Anion Gap 13 (10-20) 05/23/17 05:15 BUN 20 mg/dl (7-17) H 05/23/17 05:15 Creatinine 1.0 mg/dl (0.7-1.2) 05/23/17 05:15 Est GFR ( Amer) > 60 05/23/17 05:15 Est GFR (Non-Af Amer) 53 05/23/17 05:15 POC Glucose (mg/dL) 174 mg/dL (65-110) H 05/23/17 15:57 Random Glucose 155 mg/dL (65-105) H 05/23/17 05:15 Calcium 8.0 mg/dL (8.4-10.2) L 05/23/17 05:15 Iron 51 ug/dL (37-170) 05/20/17 05:20 TIBC 254 ug/dL (250-450) 05/20/17 05:20 % Saturation 20 % (20-55) 05/20/17 05:20 Ferritin 353.0 ng/Ml (11.1-264.0) H 05/20/17 05:20 Total Bilirubin 0.6 mg/dl (0.2-1.3) 05/18/17 21:34 AST 45 U/L (14-36) H D 05/18/17 21:34 ALT 41 U/L (9-52) 05/18/17 21:34 Alkaline Phosphatase 84 U/L (38-126) 05/18/17 21:34 Lactate Dehydrogenase 627 U/L (313-618) H 05/20/17 05:20 Troponin I 0.0330 ng/mL (0.00-0.120) 05/21/17 15:21 Total Protein 6.9 G/DL (6.3-8.2) 05/18/17 21:34 Albumin 3.9 g/dL (3.5-5.0) 05/18/17 21:34 Globulin 3.0 gm/dL (2.2-3.9) 05/18/17 21:34 Albumin/Globulin Ratio 1.3 (1.0-2.1) 05/18/17 21:34 Stool Occult Blood Negative (NEGATIVE) 05/21/17 11:53 Blood Type O POSITIVE 05/20/17 20:00 Antibody Screen Negative 05/20/17 20:00 Crossmatch See Detail 05/20/17 20:00 BBK History Checked Patient has bt 05/20/17 20:00 Discharge Exam - Head Exam Head Exam: ATRAUMATIC, NORMAL INSPECTION, NORMOCEPHALIC Discharge Plan - Follow Up Plan Condition: FAIR Disposition: REHAB FACILITY/REHAB UNIT Instructions: ORIF of Hip Fracture (DC)
== END 2017-05-23 16:25 | DRG 481 ==
LOC: H.ER 16:42 → H.ERHOLD 20:44 → H.MEDSURG1 22:49
PROVIDERS: ADMIT Internal Medicine; ATTEND Internal Medicine
PROC: 3E0T33Z Introduction of Anti-inflammatory into Peripheral Nerves and Plexi, Percutaneous Approach (ICD-10-PCS; 2017-05-21)
PROC: 30233N1 Transfusion of Nonautologous Red Blood Cells into Peripheral Vein, Percutaneous Approach (ICD-10-PCS; 2017-05-21)
PROC: 0QS704Z Reposition Left Upper Femur with Internal Fixation Device, Open Approach (ICD-10-PCS; principal; 2017-05-21 07:45)
PROC: 3E0T3BZ Introduction of Anesthetic Agent into Peripheral Nerves and Plexi, Percutaneous Approach (ICD-10-PCS; 2017-05-21 07:45)
DX: S72.012A Unspecified intracapsular fracture of left femur, initial encounter for closed fracture (principal); C56.9 Malignant neoplasm of unspecified ovary; D69.59 Other secondary thrombocytopenia; C54.1 Malignant neoplasm of endometrium; D64.81 Anemia due to antineoplastic chemotherapy; D63.0 Anemia in neoplastic disease; I12.9 Hypertensive chronic kidney disease with stage 1 through stage 4 chronic kidney disease, or unspecified chronic kidney disease; N18.9 Chronic kidney disease, unspecified; E11.22 Type 2 diabetes mellitus with diabetic chronic kidney disease; T45.1X5A Adverse effect of antineoplastic and immunosuppressive drugs, initial encounter; I35.0 Nonrheumatic aortic (valve) stenosis; E78.00 Pure hypercholesterolemia, unspecified; K21.9 Gastro-esophageal reflux disease without esophagitis; W19.XXXA Unspecified fall, initial encounter; Z91.011 Allergy to milk products; Z90.710 Acquired absence of both cervix and uterus; Z87.01 Personal history of pneumonia (recurrent); Y92.480 Sidewalk as the place of occurrence of the external cause

== ENCOUNTER 2017-08-13 08:54 | Day surgery (SDC) | payer MEDICARE ==
[2017-08-01 08:50] VITALS: BMI 29.5
[2017-08-13] MEDS ORDERED: Lactated Ringer's 1,000 ML IV ONE (09:50)
[2017-08-13] MEDS ORDERED: Iohexol 300 100 ML IJ ONE (10:03)
[2017-08-13] MEDS ORDERED: Lidocaine 2% Jelly (Uro-Jet) ONE (10:03)
[2017-08-13] MEDS ORDERED: Propofol 10 mg/ml Inj (20 ML) ONE (10:47)
[2017-08-13] MEDS ORDERED: Midazolam 2 MG/2 ML VIAL ONE (10:48)
[2017-08-13] MEDS ORDERED: Sevoflurane - Inhalation Anesthetic Liq (250 ml) ONE (10:50)
[2017-08-13] MEDS ORDERED: cefTRIAXone (Rocephin) 1 gm Inj IVPB ONE (10:55)
[2017-08-13] MEDS ORDERED: Iohexol 240 (50 ml) UR ONE (11:00)
--- NOTE | 2017-08-13 11:02 | RAD ---
HISTORY: preop COMPARISON: Comparison chest dated 05/18/2017 TECHNIQUE: Chest PA and lateral FINDINGS: Interval placement right subclavian MediPort tip in the SVC LUNGS: Suspect minor bibasilar atelectasis and or scarring. PLEURA: No significant pleural effusion identified. No pneumothorax apparent. CARDIOVASCULAR: Heart size is within range of normal. Aorta is slightly ectatic and uncoiled with calcification of the aortic knob. OSSEOUS STRUCTURES: Multilevel degenerative spondylosis of the thoracic spine. Degenerative changes both shoulder girdles. VISUALIZED UPPER ABDOMEN: Normal. OTHER FINDINGS: None. IMPRESSION: Suspect minor bibasilar atelectasis and/or scarring
[2017-08-13] MEDS ORDERED: Lactated Ringer's 1,000 ML IV SCH (12:15)
[2017-08-13 13:03] VITALS: O2SAT 98
--- NOTE | 2017-08-13 13:15 | RAD ---
PROCEDURE: Intraoperative Fluoroscopy. HISTORY: CYSTO: STENT PLACEMENT FINDINGS: Fluoroscopic assistance was provided. Please refer to the operative report from SUNG Fry.
[2017-08-13 13:35] VITALS: BP 167/64; PULSE 66; RESP 18; TEMP 97.6
--- NOTE | 2017-09-12 14:32 | OP ---
PROCEDURE DATE: 08/13/2017 PREOPERATIVE DIAGNOSIS: Left hydronephrosis. POSTOPERATIVE DIAGNOSIS: Left hydronephrosis. PROCEDURE: Cystoscopy, left retrograde pyelogram, left double J-stent placement. SURGEON: Humberto Whitmore MD DESCRIPTION OF PROCEDURE: Under general anesthesia, the patient was placed on the operating room table in the dorsal lithotomy position. The area of the groin was draped and prepped in a sterile manner. Using a #21 cystoscope, I entered into the bladder atraumatically. Identifying the left ureteral orifice at this time, I placed a cone tip catheter and did retrograde pyelogram. The patient has significant hydroureteronephrosis down to the level of the pelvis. It appears that the entire left renal unit is swollen, so at this time, I was able under fluoroscopy to advance a sensor wire to the level of the renal pelvis and over that wire then I inserted a 6-Faroese multi-[id number] double-J stent. Once this was done, the cystoscope was removed. The patient was taken from the operating room in good condition. Humberto Whitmore MD
== END 2017-08-13 14:25 | disposition home or self-care (01) ==
LOC: H.OPSURG 08:54
PROVIDERS: ATTEND Urology
DX: N13.30 Unspecified hydronephrosis (principal); E11.9 Type 2 diabetes mellitus without complications; Z85.43 Personal history of malignant neoplasm of ovary
CPT/HCPCS: 52332; 71046; 82948; C2617; J0696; J2001; J2250; J2704; J7120; Q9966; Q9967

== ENCOUNTER 2017-09-13 12:29 | Emergency (ER) | payer MEDICARE ==
[2017-09-13 12:30] VITALS: BMI 29.5
[2017-09-13 12:34] VITALS: O2SAT 98
--- NOTE | 2017-09-13 13:35 | ED PDOC ---
Lower Extremity Pain/Injury Time Seen by Provider: 09/13/17 13:25 Chief Complaint (Nursing): Hip Pain Chief Complaint (Provider): Evaluation of left hip s/p fall History Per: Patient History/Exam Limitations: no limitations Onset/Duration Of Symptoms: Mins Additional Complaint(s): 81 yo female with history of left hip fracture 4 months ago presents for evaluation of hip after fall. PT states she was opening a heavy door and loster her balance which resulted in a fall. Pt denies SOB, chest pain, dizziness, etc before or after fall. Pt denies pain and states she was just very worried becuase of previous fall. PT states her balance is not good at her baseline. Past Medical History Reviewed: Historical Data, Nursing Documentation, Vital Signs Vital Signs: Last Vital Signs Temp 97.9 F 09/13/17 12:32 Pulse 80 09/13/17 12:32 Resp 16 09/13/17 12:32 BP 165/82 H 09/13/17 12:32 Pulse Ox 98 09/13/17 12:32 - Medical History PMH: Arthritis, Diabetes, GERD, HTN, Hypercholesterolemia, Pneumonia (during Infancy), Chronic Kidney Disease Denies: HIV - Surgical History Surgical History: Tonsillectomy - Family History Family History: States: Unknown Family Hx - Home Medications Home Medications: Ambulatory Orders Medication Instructions Recorded metFORMIN [glucOPHAGE] 500 mg PO BID 10/11/16 Carvedilol [Coreg] 12.5 mg PO BID 05/18/17 Saxagliptin HCl [Onglyza] 5 mg PO DAILY 05/18/17 Ascorbic Acid [Vitamin C] 1,000 mg PO DAILY 08/01/17 Cholecalciferol [Vitamin D 1000 IU] 1,000 intlu PO DAILY 08/01/17 Cyanocobalamin (Vitamin B-12) 2,500 mcg PO DAILY 08/01/17 [Vitamin B12] Multivit-Min/Iron/Folic/Lutein 1 tab PO DAILY 08/01/17 [Centrum Silver Women Tablet] [place]-3 Fatty Acids/Fish Oil [Fish 1 cap PO DAILY 08/01/17 Oil 1,000 mg Capsule] Ubidecarenone [Coenzyme Q-10] 30 mg PO DAILY 08/01/17 Vitamin E [Vitamin E] 1,000 unit PO DAILY 08/01/17 amLODIPine [Norvasc] 5 mg PO DAILY 08/01/17 - Allergies Allergies/Adverse Reactions: Allergies Allergy/AdvReac Type Severity Reaction Status Date / Time ragweed pollen Allergy SNEEZING Verified 08/13/17 09:22 milk AdvReac DIARRHEA Verified 08/13/17 09:22 Review of Systems ROS Statement: Except As Marked, All Systems Reviewed And Found Negative Constitutional: Negative for: Fever, Chills Cardiovascular: Negative for: Chest Pain, Palpitations Respiratory: Negative for: Cough, Shortness of Breath Gastrointestinal: Negative for: Nausea, Vomiting Musculoskeletal: Negative for: Neck Pain, Leg Pain Physical Exam - Reviewed Nursing Documentation Reviewed: Yes Vital Signs Reviewed: Yes - Physical Exam Appears: Positive for: Well, Non-toxic, No Acute Distress Head Exam: Positive for: ATRAUMATIC, NORMAL INSPECTION, NORMOCEPHALIC Skin: Positive for: Normal Color, Warm, DRY Eye Exam: Positive for: Normal appearance ENT: Positive for: Normal ENT Inspection Neck: Positive for: Normal, Painless ROM Cardiovascular/Chest: Positive for: Regular Rate, Rhythm Respiratory: Positive for: CNT, Normal Breath Sounds Back: Positive for: Normal Inspection Extremity: Positive for: Normal ROM, Other (Pt able to flex left hip with knee in extension without pain. Dorsi and plantar flexion again resistant 5/5 ). Negative for: Tenderness, Deformity, Swelling Neurologic/Psych: Positive for: Alert, Oriented - ECG O2 Sat by Pulse Oximetry: 98 Medical Decision Making Medical Decision Making: Hip/pelvis x-ray normal, as read by radiologist. Repeat vitals stable. Disposition - Clinical Impression Clinical Impression: Fall - Patient ED Disposition Is Patient to be Admitted: No Counseled Patient/Family Regarding: Diagnosis, Need For Followup - Disposition Referrals: Akhil Stevens III, MD [Staff Provider] - Disposition: Routine/Home Disposition Time: 15:06 Condition: STABLE Instructions: Preventing Falls in the Older Adult Forms: [employer] (Nauruan)
--- NOTE | 2017-09-13 14:00 | RAD ---
PROCEDURE: Left Hip X-ray Radiographs. HISTORY: 05/21/2017 left hip radiographs COMPARISON: None. FINDINGS: BONES: Satisfactory position of orthopedic hardware consisting of 3 partially fenestrated screws traversing subcapital fracture of the proximal left femur. Major fracture fragments rib main anatomically aligned. No evidence of hardware failure. JOINTS: Degenerative changes are mild and symmetrical both hips SOFT TISSUES: Normal. OTHER FINDINGS: Incompletely visualized double-J stent catheter on the left. IMPRESSION: Normal left hip radiographs.
[2017-09-13 15:07] VITALS: BP 143/69; PULSE 68; RESP 20; TEMP 97.3
== END 2017-09-13 16:01 | disposition home or self-care (01) ==
LOC: H.ER 12:29
DX: S72.002D Fracture of unspecified part of neck of left femur, subsequent encounter for closed fracture with routine healing (principal); I12.9 Hypertensive chronic kidney disease with stage 1 through stage 4 chronic kidney disease, or unspecified chronic kidney disease; N18.9 Chronic kidney disease, unspecified; Z79.84 Long term (current) use of oral hypoglycemic drugs; E78.00 Pure hypercholesterolemia, unspecified

== ENCOUNTER → 2017-12-03 | Day surgery (SDC) | payer MEDICARE ==
[2017-11-29 11:28] VITALS: BMI 26.9
[~2017-12-03] MED LIST: Iohexol 240 200 ML ONE; Lactated Ringer's 1,000 ML IV ONE; Lactated Ringer's 1,000 ML IV SCH; Lidocaine 1% 5ml Abboject IV ONE; Lidocaine 2% Jelly (5 ml) TOP ONE; Lidocaine 2% Jelly (Uro-Jet) ONE; Propofol 10 mg/ml Inj (20 ML) ONE; cefTRIAXone (Rocephin) 1 gm Inj IM ONE
[2017-12-03 14:24] VITALS: RESP 18
[2017-12-03 15:40] VITALS: BP 124/67; PULSE 82; TEMP 97.9; O2SAT 96
--- NOTE | 2017-12-03 18:04 | RAD ---
PROCEDURE: Intraoperative Fluoroscopy. HISTORY: CYSTO FINDINGS: Fluoroscopic assistance was provided for cystogram and left stent placement. Please refer to the operative report from SUNG Fry.
--- NOTE | 2017-12-03 20:55 | OP ---
PROCEDURE DATE: 12/03/2017 PREOPERATIVE DIAGNOSIS: Left hydronephrosis. POSTOPERATIVE DIAGNOSIS: Left hydronephrosis. PROCEDURE: Cystoscopy with replacement of left double-J stent. DESCRIPTION OF PROCEDURE: The patient was placed on the operating room table in dorsal lithotomy position. The area of the groin was draped and prepped in a sterile manner. At this time using a 21 cystoscope and after she was given general anesthesia, I went into the bladder identifying the existing left J stent, which was totally incrusted, I removed the tip and try to cannulate a guidewire through the existing J stent, but it was clogged, so I could not do that, so I then subsequently went back into the bladder and J stent, I placed the guidewire under fluoroscopy, I got it into good position, removed the old stent, and then inserted the new one fluoroscopically into the same position as the original one. Once this was done with 6-Macedonian multi-link double-J stent, the patient then was taken from the operating room in good condition. Humberto Whitmore MD
== END | disposition home or self-care (01) ==
LOC: H.OPSURG 09:21
PROVIDERS: ATTEND Urology
DX: N13.39 Other hydronephrosis (principal); E11.9 Type 2 diabetes mellitus without complications; E78.5 Hyperlipidemia, unspecified; I10 Essential (primary) hypertension; K21.9 Gastro-esophageal reflux disease without esophagitis
CPT/HCPCS: 52332; 82948; J0696; J2704; J2765; J7120

== ENCOUNTER 2018-04-01 09:00 | Day surgery (SDC) | payer MEDICARE ==
[2018-03-15 14:11] VITALS: BMI 27.1
[2018-04-01] MEDS ORDERED: Lactated Ringer's 1,000 ML IV ONE (10:15)
[2018-04-01] MEDS ORDERED: Propofol 10 mg/ml Inj (20 ML) ONE (11:22)
[2018-04-01] MEDS ORDERED: Lidocaine 1% 5ml Abboject ONE (11:22)
[2018-04-01] MEDS ORDERED: cefTRIAXone (Rocephin) 1 gm Inj ONE (12:32)
[2018-04-01] MEDS ORDERED: cefTRIAXone (Rocephin) 1 gm Inj IVPB ONE (12:45)
[2018-04-01] MEDS ORDERED: Lactated Ringer's 1,000 ML IV SCH (13:15)
[2018-04-01 13:51] VITALS: RESP 18
--- NOTE | 2018-04-01 14:00 | CARD ---
APPROVED REPORT Date of service: 04/01/2018 EKG Measurement Heart [id number] <Conclusion> Normal sinus rhythm Left axis deviation Abnormal ECG
[2018-04-01 15:07] VITALS: O2SAT 98
[2018-04-01 15:29] VITALS: BP 160/86; PULSE 78; TEMP 97.4
--- NOTE | 2018-04-02 14:05 | RAD ---
Date of service: 04/01/2018 PROCEDURE: Intraoperative Fluoroscopy. HISTORY: CYSTO: LEFT URETERAL STENT EXCHANGE FINDINGS: Fluoroscopic assistance was provided for stent exchange. Please refer to the operative report from SUNG Fry.
--- NOTE | 2018-04-17 07:56 | OP ---
PROCEDURE DATE: 04/01/2018 PREOPERATIVE DIAGNOSIS: Left hydronephrosis. POSTOPERATIVE DIAGNOSIS: Left hydronephrosis. PROCEDURE PERFORMED: Cystoscopy with replacement of a left double-J stent. DESCRIPTION OF PROCEDURE: The patient was placed on the operating room table in a dorsal lithotomy position. The area of the groin was draped and prepped in a sterile manner. She was given IV sedation. Following this, a #21 cystoscope was used to enter into the bladder. I identified the existing double-J stent. I grasped the tip, brought it out to the operative field and then through that existing J-stent, I inserted a sensor wire which on the fluoroscopy, I was able to track into the level of the renal pelvis. I removed the old J-stent, and then I placed a #21 cystoscope with the wire in place and under fluoroscopic evaluation over that existing guidewire, I inserted a new 6-[place] multi-length double-J stent. Once this was in good place, the cystoscope was removed. The patient then was taken from the operating room in good condition. Humberto Whitmore MD
== END 2018-04-01 15:40 | disposition home or self-care (01) ==
LOC: H.OPSURG 09:00
PROVIDERS: ATTEND Urology
DX: N13.39 Other hydronephrosis (principal); E11.9 Type 2 diabetes mellitus without complications; I10 Essential (primary) hypertension; D64.9 Anemia, unspecified; K21.9 Gastro-esophageal reflux disease without esophagitis
CPT/HCPCS: 52332; 82948; 88300; 88304; 93005; C2617; J0696; J1885; J2270; J2704; J2765; J7120

== ENCOUNTER 2018-04-02 15:01 | Observation (INO) | payer MEDICARE ==
[2018-04-02 15:01] VITALS: BMI 27.1
[2018-04-02] MEDS ORDERED: Iohexol 240 (50 ml) PO STA (15:26)
--- NOTE | 2018-04-02 15:44 | ED PDOC ---
HPI: Abdomen Time Seen by Provider: 04/02/18 15:15 Chief Complaint (Nursing): Abdominal Pain Chief Complaint (Provider): Abdominal Pain History Per: Patient Location Of Pain/Discomfort: Diffuse Associated Symptoms: Nausea, Constipation, Urinary Symptoms (Vaginal bleeding). denies: Fever, Chills, Vomiting, Diarrhea Additional Complaint(s): 82 years old female with history of hypertension and diabetes presents to ER for evaluation of diffused abdominal pain associated with nausea started 12 pm today gradual onset. Patient reports pain became more severe and worse to lower abdomen. She states she has chronic constipation and chronic vaginal bleeding, and reports one small bowel movement today but says she still feels constipated. Patient reports she underwent a procedure yesterday to replace left ureteral stent and has been voiding with no difficulty. She states she had this procedure about 2 times in the past due to obstruction. Patient denies any vomiting, diarrhea, back pain, fever, chills or change in spotting. Currently pt has large ovarian tumor and has had evaluation by oncology and advised that she is not in stage 4 cancer, advised surgery for tumor resection. However pt declined any surgery (concerned about need for colostomy) and has arranged further evaluation by a provider in [place] for "radiology therapy". Appointment for this is Apr 26. PMD: Eligio Gardner Past Medical History Reviewed: Historical Data, Nursing Documentation, Vital Signs Vital Signs: Last Vital Signs Temp 98.0 F 04/02/18 15:04 Pulse 93 H 04/02/18 15:04 Resp 16 04/02/18 15:04 BP 154/91 H 04/02/18 15:04 Pulse Ox 96 04/02/18 15:04 - Medical History PMH: Arthritis (legs), Diabetes, Diverticulitis, Gastritis, GERD, HTN, Hypercholesterolemia, Pneumonia (during Infancy) Denies: HIV, Chronic Kidney Disease Other PMH: Aortic stenosis. Chronic constipation. Ovarian cancer - Surgical History Surgical History: Tonsillectomy Other surgeries: Left ureteral stent replacement. Hysterectomy - Family History Family History: States: Unknown Family Hx, Other Other Family History: Non contributory - Social History Current smoker - smoking cessation education provided: No Alcohol: None Drugs: Denies - Home Medications Home Medications: Ambulatory Orders Medication Instructions Recorded RX: metFORMIN [glucOPHAGE] 500 mg PO BID 10/11/16 RX: Carvedilol [Coreg] 12.5 mg PO Q12 05/18/17 RX: Saxagliptin HCl [Onglyza] 5 mg PO DAILY 05/18/17 RX: Cholecalciferol [Vitamin D 1,000 unit PO DAILY 08/01/17 1000 IU] RX: Multivit-Min/Iron/Folic/Lutein 1 tab PO DAILY 08/01/17 [Centrum Silver Women Tablet] RX: [place]-3 Fatty Acids/Fish Oil 1,000 mg PO DAILY 08/01/17 [Fish Oil 1,000 mg Capsule] RX: Ciprofloxacin [Cipro] 500 mg PO BID 04/01/18 RX: Ascorbic Acid [Vitamin C 500 500 mg PO DAILY 04/02/18 mg Tab] RX: Cyanocobalamin [Vitamin B12 1 tab PO DAILY 04/02/18 1000 mcg Tab] RX: Lisinopril [Zestril] 5 mg PO DAILY 04/02/18 RX: Lutein 1 cap PO DAILY 04/02/18 RX: Ondansetron HCl [Zofran] 8 mg PO Q8 PRN 04/02/18 RX: Ubidecarenone [Coenzyme Q-10] 1 cap PO DAILY 04/02/18 RX: Vitamin B Complex [Super B-50 1 cap PO DAILY 04/02/18 Complex] RX: Vitamin E [Vitamin E 400 Units 400 unit PO DAILY 04/02/18 Cap] - Allergies Allergies/Adverse Reactions: Allergies Allergy/AdvReac Type Severity Reaction Status Date / Time ragweed pollen Allergy SNEEZING Verified 04/01/18 10:09 milk AdvReac DIARRHEA Verified 04/01/18 10:09 Review of Systems ROS Statement: Except As Marked, All Systems Reviewed And Found Negative Constitutional: Negative for: Fever, Chills Gastrointestinal: Positive for: Nausea, Abdominal Pain (Diffused, worse to lower abdomen), Constipation. Negative for: Vomiting, Diarrhea Musculoskeletal: Negative for: Back Pain Physical Exam - Reviewed Nursing Documentation Reviewed: Yes Vital Signs Reviewed: Yes - Physical Exam Appears: Positive for: Non-toxic, Uncomfortable, In Acute Distress Head Exam: Positive for: ATRAUMATIC, NORMOCEPHALIC Skin: Positive for: Warm, Dry, Pallor Eye Exam: Positive for: EOMI, PERRL ENT: Positive for: Other (tacky mucus membranes). Negative for: Pharyngeal Erythema, Tonsillar Exudate Neck: Positive for: Painless ROM, Supple Cardiovascular/Chest: Positive for: Regular Rate, Rhythm, Murmur (Loud) Respiratory: Positive for: Normal Breath Sounds. Negative for: Respiratory Distress Gastrointestinal/Abdominal: Positive for: Bowel Sounds (hyperactive), Soft, Tenderness (Diffused mild to palpation), Distended. Negative for: Guarding, Rebound Back: Positive for: Normal Inspection. Negative for: Decreased ROM Extremity: Positive for: Normal ROM. Negative for: Deformity Lymphatic: Negative for: Adenopathy Neurologic/Psych: Positive for: Alert. Negative for: Motor/Sensory Deficits - Laboratory Results Result Diagrams: 04/03/18 06:15 04/04/18 05:50 - ECG O2 Sat by Pulse Oximetry: 96 (RA) Pulse Ox Interpretation: Normal Medical Decision Making Medical Decision Making: Time: 1524 Initial Impression: Abdominal pain. Differential includes but not limited to constipation, obstruction, UTI, pyelonephritis, diverticulitis. Initial Plan: --BBK Type and Screen --CMP --Lactic acid, plasma --Lipase --CBC --PTT --PT --Chest X-Ray --Morphine 2 mg IVP --Iohexol 50 ml PO --Zofran 4 mg --Blood culture --Urine culture --Abdomen X-Ray --Urinalysis 1709 --Abd/Pelvis CT 1729 Chest X-Ray FINDINGS: LUNGS: No active pulmonary disease. PLEURA: No significant pleural effusion identified, no pneumothorax apparent. CARDIOVASCULAR: Normal. OSSEOUS STRUCTURES: No significant abnormalities. VISUALIZED UPPER ABDOMEN: Normal. OTHER FINDINGS: None. IMPRESSION: No active disease. No significant interval change compared to the prior examina tion(s). 1730 Abdomen X-Ray FINDINGS: BOWEL: Normal. No obstruction. No free air. BONES: Normal. OTHER FINDINGS: Position of the double J stent catheter(s): Satisfactory on the left. IMPRESSION: No significant or acute findings to account for/ related to the clinical presentation. 175 Labs demonstrated mild renal insufficiency and hematuria. Otherwise, no significant abnormalities. Upon reevaluation patient reports improvement of symptoms after Morphine. 1930 Abd/Pelvis CT Findings: IMPRESSION: large lobulated soft tissue mass measuring approximate 10 x 9.4 x 7.9 cm which may represent primary ovarian neoplasm within the pelvis which appears to involve and possibly invade the sigmoid colon. Diverticular changes present sigmoid colon. Small low-density cystic area 1 cm within the left lobe of the liver. A left ureteral stent with dilatation of the left renal collecting system and left ureter. Clinical correlation advised. If warranted dedicated contrast enhanced study may be considered. 1999 DW pt findings. Pt now having diarrhea, and she is continuing to have some pain. At this time, with intractable pain and given she already had signs of dehydration (elevated BUN) and is having diarrhea, will observe in hospital for IV hydration and continue pain control. ADELE Corrigan Med Dmitriy Gardner PMD. Scribe Attestation: Documented by Kamila Pete, acting as a scribe for Dalia Cm MD. Provider Scribe Attestation: All medical record entries made by the Scribe were at my direction and personally dictated by me. I have reviewed the chart and agree that the record accurately reflects my personal performance of the history, physical exam, medical decision making, and the department course for this patient. I have also personally directed, reviewed, and agree with the discharge instructions and disposition. Disposition - Clinical Impression Clinical Impression: Ovarian cancer, Dehydration, Abdominal pain Counseled Patient/Family Regarding: Studies Performed, Diagnosis - Disposition Disposition Time: 20:00 Condition: FAIR - Pt Status Changed To: Hospital Disposition Of: Observation - POA Present On Arrival: Falls Or Trauma (history)
[2018-04-02] MEDS ORDERED: Iohexol 240 (50 ml) ONE (15:47)
[2018-04-02 15:59] LABS: BASO # 0.1 K/uL (0.0-0.2); BASO % 0.8 % (0.0-2.0); EOS # 0.4 K/uL (0.0-0.7); EOS % 4.4 % (0.0-4.0); HEMOGLOBIN 11.4 g/dL (12.0-16.0); LYMPH # 0.6 K/uL (1.0-4.3); LYMPH % 6.7 % (20.0-40.0); MEAN CELL VOLUME 94.2 fl (81.0-99.0); MEAN CORPUSCULAR HEMOGLOBIN 31.7 pg (27.0-31.0); MEAN CORPUSCULAR HGB CONC 33.6 g/dL (33.0-37.0); MEAN PLATELET VOLUME 9.2 fl (7.2-11.7); MONO # 0.6 K/uL (0.0-0.8); MONO % 6.6 % (0.0-10.0); NEUT # 7.7 K/uL (1.8-7.0); NEUT % 81.5 % (50.0-75.0); PLATELET COUNT 181 K/uL (130-400); RBC 3.59 Mil/uL (3.80-5.20); RED CELL DISTRIBUTION WIDTH 14.9 % (11.5-14.5); WHITE BLOOD COUNT 9.4 K/uL (4.8-10.8)
[2018-04-02 16:16] LABS: PARTIAL THROMBOPLASTIN TIME 36.2 Seconds (25.6-37.1); PROTHROMBIN TIME 11.1 Seconds (9.8-13.1)
[2018-04-02 16:16] LABS: ALB/GLOB RATIO 1.2 (1.0-2.1); ALBUMIN 3.7 g/dL (3.5-5.0); CALCIUM 8.9 mg/dL (8.4-10.2)
[2018-04-02 16:52] LABS: SQUAMOUS EPITHIAL < 1 /hpf (0-5); URINE AMORPHOUS SEDIMENT RARE /ul (<OCC); URINE BILIRUBIN NEGATIVE (NEGATIVE); URINE BLOOD LARGE (NEGATIVE); URINE CLARITY CLOUDY (Clear); URINE COLOR AMBER (YELLOW); URINE GLUCOSE (UA) NEG (Normal); URINE LEUKOCYTE ESTERASE NEG Leu/uL (Negative); URINE PROTEIN 100 mg/dL (NEGATIVE); URINE UROBILINOGEN 0.2-1.0 mg/dL (0.2-1.0)
--- NOTE | 2018-04-02 17:32 | RAD ---
Date of service: 04/02/2018 HISTORY: Abdominal pain COMPARISON: 08/13/2017. FINDINGS: LUNGS: No active pulmonary disease. PLEURA: No significant pleural effusion identified, no pneumothorax apparent. CARDIOVASCULAR: Normal. OSSEOUS STRUCTURES: No significant abnormalities. VISUALIZED UPPER ABDOMEN: Normal. OTHER FINDINGS: None. IMPRESSION: No active disease. No significant interval change compared to the prior examination(s).
--- NOTE | 2018-04-02 17:32 | RAD ---
Date of service: 04/02/2018 HISTORY: Abdominal pain COMPARISON: No prior. FINDINGS: BOWEL: Normal. No obstruction. No free air. BONES: Normal. OTHER FINDINGS: Position of the double J stent catheter(s): Satisfactory on the left. IMPRESSION: No significant or acute findings to account for/ related to the clinical presentation.
[2018-04-02 17:38] LABS: ANISOCYTOSIS SLIGHT; BANDS 3 % (0-2); EOSINOPHIL 1 % (0-7); HYPERSEGMENTATION PRESENT; HYPOCHROMIC SLIGHT; LARGE PLATELETS PRESENT; LYMPHOCYTE 8 % (20-50); MONOCYTE 6 % (0-10); NEUTROPHIL 82 % (42-75); PLATELET ESTIMATE NORMAL (NORMAL); TOTAL CELLS COUNTED 100
[2018-04-02] MEDS ORDERED: Sodium Chloride 0.9% 500 ML IV STA (20:09)
[2018-04-02] MEDS ORDERED: Sodium Chloride 0.9% 1,000 ML IV STA (20:52)
[2018-04-03] MEDS: Sodium Chloride 0.9% 1,000 ML IV SCH ×3 (01:15→22:00)
[2018-04-03 06:51] LABS: BASO % 0.8 % (0.0-2.0); EOS # 0.3 K/uL (0.0-0.7); EOS % 6.5 % (0.0-4.0); HEMOGLOBIN 9.1 g/dL (12.0-16.0); LYMPH # 0.6 K/uL (1.0-4.3); LYMPH % 12.8 % (20.0-40.0); MEAN CELL VOLUME 93.6 fl (81.0-99.0); MEAN CORPUSCULAR HEMOGLOBIN 32.2 pg (27.0-31.0); MEAN CORPUSCULAR HGB CONC 34.4 g/dL (33.0-37.0); MEAN PLATELET VOLUME 9.1 fl (7.2-11.7); MONO # 0.6 K/uL (0.0-0.8); MONO % 12.2 % (0.0-10.0); NEUT # 3.3 K/uL (1.8-7.0); NEUT % 67.7 % (50.0-75.0); NRBC % 0.1 % (0.0-0.0); RBC 2.84 Mil/uL (3.80-5.20); RED CELL DISTRIBUTION WIDTH 14.6 % (11.5-14.5); WHITE BLOOD COUNT 4.8 K/uL (4.8-10.8)
[2018-04-03 07:48] LABS: ALB/GLOB RATIO 1.1 (1.0-2.1); ALBUMIN 2.9 g/dL (3.5-5.0); CALCIUM 8.3 mg/dL (8.4-10.2)
[2018-04-03] MEDS: Insulin Lispro (humaLOG) 100 Units/ml Inj SC SCH ×4 (08:43→22:00)
[2018-04-03] MEDS: Cholecalciferol 1,000 INTLU TAB PO SCH (08:44)
[2018-04-03] MEDS: Multivitamin With Minerals Tab PO SCH (08:44)
[2018-04-03] MEDS ORDERED: MULTIVIT MIN PO SCH (09:00)
[2018-04-03] MEDS ORDERED: FOLIC PO SCH (09:00)
[2018-04-03] MEDS ORDERED: UBIDECARENONE PO SCH (09:00)
[2018-04-03] MEDS ORDERED: IRON PO SCH (09:00)
[2018-04-03] MEDS ORDERED: Omega-3-Acid Ethyl Esters 1 GM Cap PO SCH (09:00)
[2018-04-03] MEDS ORDERED: LUTEIN PO SCH ×2 (09:00)
[2018-04-03] MEDS ORDERED: Patient's Own Med (Vitamin B Complex [Super B-50 Complex] 1 CAP) PO SCH (09:00)
[2018-04-03 09:07] LABS: SQUAMOUS EPITHIAL < 1 /hpf (0-5); URINE BACTERIA RARE (<OCC); URINE BILIRUBIN NEGATIVE (NEGATIVE); URINE BLOOD LARGE (NEGATIVE); URINE CLARITY CLOUDY (Clear); URINE COLOR YELLOW (YELLOW); URINE GLUCOSE (UA) NEG (Normal); URINE LEUKOCYTE ESTERASE MOD Leu/uL (Negative); URINE PROTEIN 100 mg/dL (NEGATIVE); URINE UROBILINOGEN 0.2-1.0 mg/dL (0.2-1.0)
--- NOTE | 2018-04-03 12:12 | CT ---
PROCEDURE: CT Abdomen and Pelvis without IV contrast. HISTORY: abd pain and distension h/o ovarian cancer/mass COMPARISON: None available TECHNIQUE: Contiguous axial images of the abdomen and pelvis. Oral contrast was administered. No IV contrast given. Coronal and Sagittal reformats generated and reviewed. Radiation dose: Total exam DLP = 556.42 mGy-cm. This CT exam was performed using one or more of the following dose reduction techniques: Automated exposure control, adjustment of the mA and/or kV according to patient size, and/or use of iterative reconstruction technique. FINDINGS: There is limited evaluation of the solid organs without the administration of IV contrast. LOWER THORAX: Mild bibasilar atelectasis. No visible pleural effusion or pneumothorax. LIVER: 9 mm left hepatic lobe indeterminate hypodense lesion. GALLBLADDER AND BILE DUCTS: Unremarkable unenhanced appearance. PANCREAS: Pancreatic atrophy. SPLEEN: Unremarkable unenhanced appearance. ADRENALS: Bilateral adrenal gland hypertrophy. KIDNEYS AND URETERS: Left ureteral stent and hydroureter nephrosis. Mild fullness of the right renal collecting system. BLADDER: Mildly thick-walled urinary bladder. REPRODUCTIVE: Enlarged lobulated soft tissue density within the pelvis measures approximately 10 x 9.4 x 7.9 cm. It is unclear if this represents a primary ovarian neoplasm described in patient's history. This finding appears to involve or deviated to the adjacent sigmoid colon. APPENDIX: The appendix appears within normal limits of caliber. No secondary signs of acute appendicitis. BOWEL: The stomach is nondistended. The bowel loops appear within normal limits of caliber without evidence of intestinal obstruction. Extensive diverticulosis without CT evidence of acute diverticulitis. PERITONEUM: No significant free fluid. No definite free air. LYMPH NODES: No bulky lymphadenopathy identified. VASCULATURE: Dense atherosclerotic calcifications of the aorta and branches. No aortic aneurysm. BONES: Osseous demineralization. Scoliosis. Extensive degenerative changes. Postsurgical changes of the left hip with metallic screw fixation and resultant streak artifact. OTHER FINDINGS: None. IMPRESSION: Lobulated enlarged soft tissue mass within the pelvis, possibly representing described primary ovarian neoplasm. This finding appears to involve rim possibly invades the adjacent sigmoid colon. Extensive diverticulosis without CT evidence of acute diverticulitis. Hypodense 9 mm lesion within the left hepatic lobe, indeterminate. Bilateral adrenal gland hypertrophy. Left ureteral stent with left-sided hydroureter nephrosis. Prominence of the right renal collecting system. Mildly thick-walled urinary bladder; recommend correlation with urinalysis. CT with IV and oral contrast may be considered for further evaluation if indicated. Recommend correlation with prior outside imaging if available. Additional findings as above. Preliminary impression was provided by RAJENDRA Brand.
[2018-04-03] MEDS: Simethicone 80 mg Chewtab PO PRN (15:50)
--- NOTE | 2018-04-04 01:03 | CP.PCM.HP ---
History of Present Illness - History of Present Illness History of Present Illness: CC: Abdominal Pain HPI: An 82 years old female with history of hypertension and diabetes presents to ER for evaluation of diffused abdominal pain associated with nausea started 12 pm yesterday gradual onset. Patient reports pain became more severe and worse to lower abdomen. She states she has chronic constipation and chronic vaginal bleeding, and reports one small bowel movement today but says she still feels constipated. Patient reports she underwent a procedure yesterday to replace left ureteral stent and has been voiding with no difficulty. She states she had this procedure about 2 times in the past due to obstruction. Patient denies any vomiting, diarrhea, back pain, fever, chills or change in spotting. Patient has large ovarian tumor and has had evaluation by oncology and advised that she is not in stage 4 cancer, advised surgery for tumor resection. However pt declined any surgery (concerned about need for colostomy) and has arranged further evaluation by a provider in [place] for "radiology therapy". Appointment for this is Apr 26. Present on Admission - Present on Admission Any Indicators Present on Admission: No Review of Systems - Review of Systems All systems: reviewed and no additional remarkable complaints except Review of Systems: As per HPI Past Patient History - Infectious Disease Hx of Infectious Diseases: None - Past Medical History & Family History Past Medical History?: Yes Past Family History: Reviewed and not pertinent - Past Social History Smoking Status: Never Smoked Alcohol: None Drugs: Denies - CARDIAC Hx Cardiac Disorders: (hypertension; hyperlipidemia) Hx Hypertension: Yes - PULMONARY Hx Pneumonia: Yes (during Infancy) - NEUROLOGICAL Hx Neurological Disorder: No - HEENT Hx HEENT Problems: Yes Hx Cataracts: Yes (bilateral) Hx Glaucoma: Yes - RENAL Hx Chronic Kidney Disease: (left kidney stent) - ENDOCRINE/METABOLIC Hx Endocrine Disorders: Yes (Diabetes Mellitus type 2) Hx Diabetes Mellitus Type 2: Yes - HEMATOLOGICAL/ONCOLOGICAL Hx Human Immunodeficiency Virus (HIV): No - INTEGUMENTARY Hx Dermatological Problems: No - MUSCULOSKELETAL/RHEUMATOLOGICAL Hx Arthritis: Yes (legs) - GASTROINTESTINAL Hx Constipation: Yes Hx Diverticulitis: Yes Hx Gastritis: Yes - GENITOURINARY/GYNECOLOGICAL Hx Genitourinary Disorders: No Hx Ovarian Cancer: Yes - PSYCHIATRIC Hx Emotional Abuse: No Hx Physical Abuse: No Hx Substance Use: No - SURGICAL HISTORY Hx Hysterectomy: Yes Hx Tonsillectomy: Yes Other/Comment: left uretral stent changw (10/01/18). aortic stenosis - ANESTHESIA Hx Anesthesia: Yes Hx Anesthesia Reactions: No Hx Malignant Hyperthermia: No Meds Allergies/Adverse Reactions: Allergies Allergy/AdvReac Type Severity Reaction Status Date / Time ragweed pollen Allergy SNEEZING Verified 04/01/18 10:09 milk AdvReac DIARRHEA Verified 04/01/18 10:09 Physical Exam - Constitutional Appears: Well - Head Exam Head Exam: ATRAUMATIC, NORMAL INSPECTION, NORMOCEPHALIC - Eye Exam Eye Exam: EOMI, Normal appearance, PERRL Pupil Exam: NORMAL ACCOMODATION, PERRL - ENT Exam ENT Exam: Mucous Membranes Moist, Normal Exam - Neck Exam Neck exam: Positive for: Normal Inspection - Respiratory Exam Respiratory Exam: Clear to Auscultation Bilateral, NORMAL BREATHING PATTERN - Cardiovascular Exam Cardiovascular Exam: REGULAR RHYTHM - GI/Abdominal Exam GI & Abdominal Exam: Normal Bowel Sounds, Soft. absent: Tenderness - Extremities Exam Extremities exam: Positive for: normal inspection - Back Exam Back exam: NORMAL INSPECTION - Neurological Exam Neurological exam: Alert, CN II-XII Intact, Normal Gait, Oriented x3, Reflexes Normal - Psychiatric Exam Psychiatric exam: Normal Affect, Normal Mood - Skin Skin Exam: Dry, Intact, Normal Color, Warm Results - Vital Signs Recent Vital Signs: Last Vital Signs Temp 98.2 F 04/03/18 23:57 Pulse 80 04/03/18 23:57 Resp 18 04/03/18 23:57 BP 158/81 H 04/03/18 23:57 Pulse Ox 80 L 04/03/18 23:57 - Labs Result Diagrams: 04/03/18 06:15 04/04/18 05:50 Labs: Laboratory Results - last 24 hr 04/03/18 04/03/18 04/03/18 04:55 06:15 06:15 WBC 4.8 RBC 2.84 L Hgb 9.1 L D Hct 26.6 L MCV 93.6 MCH 32.2 H MCHC 34.4 RDW 14.6 H Plt Count 140 MPV 9.1 Neut % (Auto) 67.7 Lymph % (Auto) 12.8 L [place] % (Auto) 12.2 H Eos % (Auto) 6.5 H Baso % (Auto) 0.8 Neut # (Auto) 3.3 Lymph # (Auto) 0.6 L [place] # (Auto) 0.6 Eos # (Auto) 0.3 Baso # (Auto) 0.0 Sodium 141 Potassium 4.1 Chloride 111 H Carbon Dioxide 24 Anion Gap 10 BUN 26 H Creatinine 1.2 Est GFR ( Amer) 52 Est GFR (Non-Af Amer) 43 POC Glucose (mg/dL) 125 H Random Glucose 119 H Hemoglobin A1c Calcium 8.3 L Total Bilirubin 0.4 AST 32 ALT 27 Alkaline Phosphatase 61 Total Protein 5.6 L Albumin 2.9 L D Globulin 2.7 Albumin/Globulin Ratio 1.1 Urine Color Urine Clarity Urine pH Ur Specific [place] Urine Protein Urine Glucose (UA) Urine Ketones Urine Blood Urine Nitrate Urine Bilirubin Urine Urobilinogen Ur Leukocyte Esterase Urine RBC (Auto) Urine Microscopic WBC Ur Squamous Epith Cells Urine Bacteria 04/03/18 04/03/18 04/03/18 06:15 08:46 10:48 WBC RBC Hgb Hct MCV MCH MCHC RDW Plt Count MPV Neut % (Auto) Lymph % (Auto) [place] % (Auto) Eos % (Auto) Baso % (Auto) Neut # (Auto) Lymph # (Auto) [place] # (Auto) Eos # (Auto) Baso # (Auto) Sodium Potassium Chloride Carbon Dioxide Anion Gap BUN Creatinine Est GFR ( Amer) Est GFR (Non-Af Amer) POC Glucose (mg/dL) 246 H Random Glucose Hemoglobin A1c 6.0 Calcium Total Bilirubin AST ALT Alkaline Phosphatase Total Protein Albumin Globulin Albumin/Globulin Ratio Urine Color Yellow Urine Clarity Cloudy Urine pH 5.0 Ur Specific [place] 1.013 Urine Protein 100 Urine Glucose (UA) Neg Urine Ketones Negative Urine Blood Large Urine Nitrate Negative Urine Bilirubin Negative Urine Urobilinogen 0.2-1.0 Ur Leukocyte Esterase Mod Urine RBC (Auto) 143 H Urine Microscopic WBC 55 H Ur Squamous Epith Cells < 1 Urine Bacteria Rare 04/03/18 15:29 WBC RBC Hgb Hct MCV MCH MCHC RDW Plt Count MPV Neut % (Auto) Lymph % (Auto) [place] % (Auto) Eos % (Auto) Baso % (Auto) Neut # (Auto) Lymph # (Auto) [place] # (Auto) Eos # (Auto) Baso # (Auto) Sodium Potassium Chloride Carbon Dioxide Anion Gap BUN Creatinine Est GFR ( Amer) Est GFR (Non-Af Amer) POC Glucose (mg/dL) 104 Random Glucose Hemoglobin A1c Calcium Total Bilirubin AST ALT Alkaline Phosphatase Total Protein Albumin Globulin Albumin/Globulin Ratio Urine Color Urine Clarity Urine pH Ur Specific [place] Urine Protein Urine Glucose (UA) Urine Ketones Urine Blood Urine Nitrate Urine Bilirubin Urine Urobilinogen Ur Leukocyte Esterase Urine RBC (Auto) Urine Microscopic WBC Ur Squamous Epith Cells Urine Bacteria - Imaging and Cardiology CT scan - abdomen Status: Report reviewed by me Additional comment: CT Abdomen and Pelvis without IV contrast. HISTORY: abd pain and distension h/o ovarian cancer/mass COMPARISON: None available TECHNIQUE: Contiguous axial images of the abdomen and pelvis. Oral contrast was administered. No IV contrast given. Coronal and Sagittal reformats generated and reviewed. Radiation dose: Total exam DLP = 556.42 mGy-cm. This CT exam was performed using one or more of the following dose reduction techniques: Automated exposure control, adjustment of the mA and/or kV according to patient size, and/or use of iterative reconstruction technique. FINDINGS: There is limited evaluation of the solid organs without the administration of IV contrast. LOWER THORAX: Mild bibasilar atelectasis. No visible pleural effusion or pneumothorax. LIVER: 9 mm left hepatic lobe indeterminate hypodense lesion. GALLBLADDER AND BILE DUCTS: Unremarkable unenhanced appearance. PANCREAS: Pancreatic atrophy. SPLEEN: Unremarkable unenhanced appearance. ADRENALS: Bilateral adrenal gland hypertrophy. KIDNEYS AND URETERS: Left ureteral stent and hydroureter nephrosis. Mild fullness of the right renal collecting system. BLADDER: Mildly thick-walled urinary bladder. REPRODUCTIVE: Enlarged lobulated soft tissue density within the pelvis measures approximately 10 x 9.4 x 7.9 cm. It is unclear if this represents a primary ovarian neoplasm described in patient's history. This finding appears to involve or deviated to the adjacent sigmoid colon. APPENDIX: The appendix appears within normal limits of caliber. No secondary signs of acute appendicitis. BOWEL: The stomach is nondistended. The bowel loops appear within normal limits of caliber without evidence of intestinal obstruction. Extensive diverticulosis without CT evidence of acute diverticulitis. PERITONEUM: No significant free fluid. No definite free air. LYMPH NODES: No bulky lymphadenopathy identified. VASCULATURE: Dense atherosclerotic calcifications of the aorta and branches. No aortic aneurysm. BONES: Osseous demineralization. Scoliosis. Extensive degenerative changes. Postsurgical changes of the left hip with metallic screw fixation and resultant streak artifact. OTHER FINDINGS: None. IMPRESSION: Lobulated enlarged soft tissue mass within the pelvis, possibly representing described primary ovarian neoplasm. This finding appears to involve rim possibly invades the adjacent sigmoid colon. Extensive diverticulosis without CT evidence of acute diverticulitis. Hypodense 9 mm lesion within the left hepatic lobe, indeterminate. Bilateral adrenal gland hypertrophy. Left ureteral stent with left-sided hydroureter nephrosis. Prominence of the right renal collecting system. Mildly thick-walled urinary bladder; recommend correlation with urinalysis. CT with IV and oral contrast may be considered for further evaluation if indicated. Recommend correlation with prior outside imaging if available. Additional findings as above. Preliminary impression was provided by [facility]. Assessment & Plan (1) Constipation Status: Acute Priority: Medium (2) Abdominal pain Status: Acute Priority: High (3) Dehydration Status: Acute (4) HTN (hypertension) Status: Acute (5) Ovarian cancer Status: Acute Priority: High - Assessment and Plan (Free Text) Plan: IVF Pain medication PRN Lactulose Repeat Labs In am Zofran PRN Oncology F/U
[2018-04-04] MEDS: Insulin Lispro (humaLOG) 100 Units/ml Inj SC SCH ×4 (06:29→22:04)
[2018-04-04 06:33] LABS: CALCIUM 8.6 mg/dL (8.4-10.2)
[2018-04-04] MEDS: Cholecalciferol 1,000 INTLU TAB PO SCH (08:46)
[2018-04-04] MEDS: Omega-3-Acid Ethyl Esters 1 GM Cap PO SCH (08:47)
[2018-04-04] MEDS: Multivitamin With Minerals Tab PO SCH (08:47)
[2018-04-04] MEDS: Simethicone 80 mg Chewtab PO PRN (14:21)
[2018-04-04 23:58] VITALS: TEMP 98
[2018-04-05] MEDS: Insulin Lispro (humaLOG) 100 Units/ml Inj SC SCH ×2 (07:50→12:53)
[2018-04-05 08:05] VITALS: BP 144/76; PULSE 68; RESP 20
[2018-04-05] MEDS: Cholecalciferol 1,000 INTLU TAB PO SCH (08:39)
[2018-04-05] MEDS: Multivitamin With Minerals Tab PO SCH (08:40)
[2018-04-05] MEDS: Omega-3-Acid Ethyl Esters 1 GM Cap PO SCH (08:41)
--- NOTE | 2018-04-05 08:47 | CP.PCM.PN ---
Subjective - Date & Time of Evaluation Date of Evaluation: 04/04/18 Time of Evaluation: 16:05 - Subjective Subjective: Seen and examined at the bed side. Continue to complain PAin despite pain medication. HAs BMV. No fever or chills. Objective - Vital Signs/Intake and Output Vital Signs (last 24 hours): Temp Pulse Resp BP Pulse Ox 98.0 F 68 20 144/76 95 04/05/18 08:04 04/05/18 08:40 04/05/18 08:04 04/05/18 08:40 04/05/18 08:04 - Medications Medications: Current Medications Ascorbic Acid (Vitamin C 500 Mg Tab) 500 mg PO DAILY [facility] Last Admin: 04/05/18 08:39 Dose: 500 mg Carvedilol (Coreg) 12.5 mg PO Q12 [facility] Last Admin: 04/05/18 08:40 Dose: 12.5 mg Cholecalciferol (Vitamin D) 1,000 intlu PO DAILY [facility] Last Admin: 04/05/18 08:39 Dose: 1,000 intlu Ciprofloxacin (Cipro) 500 mg PO Q12 [facility]; Protocol Stop: 04/08/18 08:55 Last Admin: 04/05/18 08:40 Dose: 500 mg Cyanocobalamin (Vitamin B12 1000 Mcg Tab) 1,000 mcg PO DAILY [facility] Last Admin: 04/05/18 08:41 Dose: 1,000 mcg Heparin Sodium (Porcine) (Heparin) 5,000 units SC Q12 [facility]; Protocol Last Admin: 04/05/18 08:39 Dose: 5,000 units Home Med (Lutein [Lutein]) 1 cap PO DAILY [facility] Home Med (Ubidecarenone [Coenzyme Q-10]) 1 cap PO DAILY [facility] Home Med (Vitamin B Complex [Super B-50 Complex]) 1 cap PO DAILY [facility] Insulin Human Lispro (Humalog) 0 units SC ACCU-CHECK [facility]; Protocol Last Admin: 04/05/18 07:50 Dose: Not Given Ketorolac Tromethamine (Toradol) 15 mg IVP Q6 PRN PRN Reason: Pain, moderate (4-7) Last Admin: 04/04/18 12:10 Dose: 15 mg Lactulose (Enulose) 20 gm PO Q12 PRN PRN Reason: Constipation Last Admin: 04/04/18 12:27 Dose: 20 gm Lisinopril (Zestril) 5 mg PO DAILY [facility] Last Admin: 04/05/18 08:39 Dose: 5 mg Metformin HCl (Glucophage) 500 mg PO BID [facility] Last Admin: 04/05/18 08:39 Dose: 500 mg Morphine Sulfate (Morphine) 2 mg IVP Q6 PRN PRN Reason: Pain, severe (8-10) Last Admin: 04/04/18 15:17 Dose: 2 mg Multivitamins/Minerals (Therapeutic-M Tab) 1 tab PO DAILY [facility] Last Admin: 04/05/18 08:40 Dose: 1 tab [id number] Ethyl Esters (Lovaza) 1 gm PO DAILY [facility] Last Admin: 04/05/18 08:41 Dose: 1 gm Ondansetron HCl (Zofran Tab) 8 mg PO Q8 PRN PRN Reason: Nausea/Vomiting Simethicone (Mylicon Chew Tab) 80 mg PO Q8 PRN PRN Reason: Flatulence Last Admin: 04/04/18 14:21 Dose: 80 mg Sitagliptin Phosphate (Januvia) 25 mg PO DAILY [facility] Last Admin: 04/05/18 08:40 Dose: 25 mg Vitamin E (Vitamin E 400 Units Cap) 400 intlu PO DAILY [facility] Last Admin: 04/05/18 08:41 Dose: 400 intlu - Labs Labs: 04/03/18 06:15 04/04/18 05:50 PT 11.1 Seconds (9.8-13.1) 04/02/18 16:00 INR 1.0 04/02/18 16:00 APTT 36.2 Seconds (25.6-37.1) 04/02/18 16:00 Assessment and Plan (1) Abdominal pain Status: Acute (2) Dehydration Status: Acute (3) Fall Status: Acute (4) Ovarian cancer Status: Acute - Assessment and Plan (Free Text) Assessment: Continue Current Care
--- NOTE | 2018-04-05 08:49 | CP.PCM.PN ---
Subjective - Date & Time of Evaluation Date of Evaluation: 04/05/18 Time of Evaluation: 07:50 - Subjective Subjective: Patient Improved and for D/C Today Objective - Vital Signs/Intake and Output Vital Signs (last 24 hours): Temp Pulse Resp BP Pulse Ox 98.0 F 68 20 144/76 95 04/05/18 08:04 04/05/18 08:40 04/05/18 08:04 04/05/18 08:40 04/05/18 08:04 - Medications Medications: Current Medications Ascorbic Acid (Vitamin C 500 Mg Tab) 500 mg PO DAILY [facility] Last Admin: 04/05/18 08:39 Dose: 500 mg Carvedilol (Coreg) 12.5 mg PO Q12 [facility] Last Admin: 04/05/18 08:40 Dose: 12.5 mg Cholecalciferol (Vitamin D) 1,000 intlu PO DAILY [facility] Last Admin: 04/05/18 08:39 Dose: 1,000 intlu Ciprofloxacin (Cipro) 500 mg PO Q12 [facility]; Protocol Stop: 04/08/18 08:55 Last Admin: 04/05/18 08:40 Dose: 500 mg Cyanocobalamin (Vitamin B12 1000 Mcg Tab) 1,000 mcg PO DAILY [facility] Last Admin: 04/05/18 08:41 Dose: 1,000 mcg Heparin Sodium (Porcine) (Heparin) 5,000 units SC Q12 [facility]; Protocol Last Admin: 04/05/18 08:39 Dose: 5,000 units Home Med (Lutein [Lutein]) 1 cap PO DAILY [facility] Home Med (Ubidecarenone [Coenzyme Q-10]) 1 cap PO DAILY [facility] Home Med (Vitamin B Complex [Super B-50 Complex]) 1 cap PO DAILY [facility] Insulin Human Lispro (Humalog) 0 units SC ACCU-CHECK [facility]; Protocol Last Admin: 04/05/18 07:50 Dose: Not Given Ketorolac Tromethamine (Toradol) 15 mg IVP Q6 PRN PRN Reason: Pain, moderate (4-7) Last Admin: 04/04/18 12:10 Dose: 15 mg Lactulose (Enulose) 20 gm PO Q12 PRN PRN Reason: Constipation Last Admin: 04/04/18 12:27 Dose: 20 gm Lisinopril (Zestril) 5 mg PO DAILY [facility] Last Admin: 04/05/18 08:39 Dose: 5 mg Metformin HCl (Glucophage) 500 mg PO BID [facility] Last Admin: 04/05/18 08:39 Dose: 500 mg Morphine Sulfate (Morphine) 2 mg IVP Q6 PRN PRN Reason: Pain, severe (8-10) Last Admin: 04/04/18 15:17 Dose: 2 mg Multivitamins/Minerals (Therapeutic-M Tab) 1 tab PO DAILY [facility] Last Admin: 04/05/18 08:40 Dose: 1 tab Lvyvq-8-Tbbl Ethyl Esters (Lovaza) 1 gm PO DAILY [facility] Last Admin: 04/05/18 08:41 Dose: 1 gm Ondansetron HCl (Zofran Tab) 8 mg PO Q8 PRN PRN Reason: Nausea/Vomiting Simethicone (Mylicon Chew Tab) 80 mg PO Q8 PRN PRN Reason: Flatulence Last Admin: 04/04/18 14:21 Dose: 80 mg Sitagliptin Phosphate (Januvia) 25 mg PO DAILY [facility] Last Admin: 04/05/18 08:40 Dose: 25 mg Vitamin E (Vitamin E 400 Units Cap) 400 intlu PO DAILY [facility] Last Admin: 04/05/18 08:41 Dose: 400 intlu - Labs Labs: 04/03/18 06:15 04/04/18 05:50 PT 11.1 Seconds (9.8-13.1) 04/02/18 16:00 INR 1.0 04/02/18 16:00 APTT 36.2 Seconds (25.6-37.1) 04/02/18 16:00 Assessment and Plan (1) Abdominal pain Assessment & Plan: D/c Home Status: Resolved
[2018-04-05 16:09] VITALS: O2SAT 96
--- NOTE | 2018-04-08 09:52 | CP.PCM.DIS ---
Provider - Provider Date of Admission: 04/02/18 20:40 Attending physician: Luisa Corrigan MD Time Spent in preparation of Discharge (in minutes): 25 Diagnosis - Discharge Diagnosis (1) Abdominal pain Status: Resolved Priority: High (2) Dehydration Status: Acute (3) Ovarian mass Status: Acute (4) Constipation Status: Acute Priority: Medium (5) Fall Status: Acute (6) HTN (hypertension) Status: Acute Hospital Course - Lab Results Lab Results: Micro Results 04/02/18 18:00 Blood-Venous Blood Culture - Final NO GROWTH AFTER 5 DAYS 04/02/18 18:00 Blood-Venous Gram Stain - Final TEST NOT PERFORMED 04/02/18 15:35 Blood-Venous Blood Culture - Final NO GROWTH AFTER 5 DAYS 04/02/18 15:35 Blood-Venous Gram Stain - Final TEST NOT PERFORMED 04/02/18 16:41 Urine,Clean Catch Urine Culture - Final No Growth (<1,000 CFU/ML) Most Recent Lab Values WBC 4.8 K/uL (4.8-10.8) 04/03/18 06:15 RBC 2.84 Mil/uL (3.80-5.20) L 04/03/18 06:15 Hgb 9.1 g/dL (12.0-16.0) L D 04/03/18 06:15 Hct 26.6 % (34.0-47.0) L 04/03/18 06:15 MCV 93.6 fl (81.0-99.0) 04/03/18 06:15 MCH 32.2 pg (27.0-31.0) H 04/03/18 06:15 MCHC 34.4 g/dL (33.0-37.0) 04/03/18 06:15 RDW 14.6 % (11.5-14.5) H 04/03/18 06:15 Plt Count 140 K/uL (130-400) 04/03/18 06:15 MPV 9.1 fl (7.2-11.7) 04/03/18 06:15 Neut % (Auto) 67.7 % (50.0-75.0) 04/03/18 06:15 Lymph % (Auto) 12.8 % (20.0-40.0) L 04/03/18 06:15 [place] % (Auto) 12.2 % (0.0-10.0) H 04/03/18 06:15 Eos % (Auto) 6.5 % (0.0-4.0) H 04/03/18 06:15 Baso % (Auto) 0.8 % (0.0-2.0) 04/03/18 06:15 Neut # (Auto) 3.3 K/uL (1.8-7.0) 04/03/18 06:15 Lymph # (Auto) 0.6 K/uL (1.0-4.3) L 04/03/18 06:15 [place] # (Auto) 0.6 K/uL (0.0-0.8) 04/03/18 06:15 Eos # (Auto) 0.3 K/uL (0.0-0.7) 04/03/18 06:15 Baso # (Auto) 0.0 K/uL (0.0-0.2) 04/03/18 06:15 Neutrophils % (Manual) 82 % (42-75) H 04/02/18 15:35 Band Neutrophils % 3 % (0-2) H 04/02/18 15:35 Lymphocytes % (Manual) 8 % (20-50) L 04/02/18 15:35 Monocytes % (Manual) 6 % (0-10) 04/02/18 15:35 Eosinophils % (Manual) 1 % (0-7) 04/02/18 15:35 Hypersegmented Polys Present 04/02/18 15:35 Platelet Estimate Normal (NORMAL) 04/02/18 15:35 Large Platelets Present 04/02/18 15:35 Hypochromasia (manual) Slight 04/02/18 15:35 Anisocytosis (manual) Slight 04/02/18 15:35 PT 11.1 Seconds (9.8-13.1) 04/02/18 16:00 INR 1.0 04/02/18 16:00 APTT 36.2 Seconds (25.6-37.1) 04/02/18 16:00 Sodium 142 mmol/l (132-148) 04/04/18 05:50 Potassium 4.3 MMOL/L (3.6-5.0) 04/04/18 05:50 Chloride 111 mmol/L (98-107) H 04/04/18 05:50 Carbon Dioxide 29 mmol/L (22-30) 04/04/18 05:50 Anion Gap 6 (10-20) L 04/04/18 05:50 BUN 22 mg/dl (7-17) H 04/04/18 05:50 Creatinine 1.1 mg/dl (0.7-1.2) 04/04/18 05:50 Est GFR ( Amer) 57 04/04/18 05:50 Est GFR (Non-Af Amer) 47 04/04/18 05:50 POC Glucose (mg/dL) 164 mg/dL (65-110) H 04/05/18 10:48 Random Glucose 119 mg/dL (65-105) H 04/04/18 05:50 Hemoglobin A1c 6.0 % (4.2-6.5) 04/03/18 06:15 Lactic Acid 1.8 MMOL/L (0.7-2.1) 04/02/18 15:35 Calcium 8.6 mg/dL (8.4-10.2) 04/04/18 05:50 Total Bilirubin 0.4 mg/dl (0.2-1.3) 04/03/18 06:15 AST 32 U/L (14-36) 04/03/18 06:15 ALT 27 U/L (9-52) 04/03/18 06:15 Alkaline Phosphatase 61 U/L (38-126) 04/03/18 06:15 Total Protein 5.6 G/DL (6.3-8.2) L 04/03/18 06:15 Albumin 2.9 g/dL (3.5-5.0) L D 04/03/18 06:15 Globulin 2.7 gm/dL (2.2-3.9) 04/03/18 06:15 Albumin/Globulin Ratio 1.1 (1.0-2.1) 04/03/18 06:15 Lipase 65 U/L (23-300) 04/02/18 15:35 Urine Color Yellow (YELLOW) 04/03/18 08:46 Urine Clarity Cloudy (Clear) 04/03/18 08:46 Urine pH 5.0 (5.0-8.0) 04/03/18 08:46 Ur Specific [place] 1.013 (1.003-1.030) 04/03/18 08:46 Urine Protein 100 mg/dL (NEGATIVE) 04/03/18 08:46 Urine Glucose (UA) Neg mg/dL (Normal) 04/03/18 08:46 Urine Ketones Negative mg/dL (NEGATIVE) 04/03/18 08:46 Urine Blood Large (NEGATIVE) 04/03/18 08:46 Urine Nitrate Negative (NEGATIVE) 04/03/18 08:46 Urine Bilirubin Negative (NEGATIVE) 04/03/18 08:46 Urine Urobilinogen 0.2-1.0 mg/dL (0.2-1.0) 04/03/18 08:46 Ur Leukocyte Esterase Mod [place]/uL (Negative) 04/03/18 08:46 Urine RBC (Auto) 143 /hpf (0-3) H 04/03/18 08:46 Urine Microscopic WBC 55 /hpf (0-5) H 04/03/18 08:46 Ur Squamous Epith Cells < 1 /hpf (0-5) 04/03/18 08:46 Amorphous Sediment Rare /ul (<OCC) H 04/02/18 16:41 Urine Bacteria Rare (<OCC) 04/03/18 08:46 Blood Type O POSITIVE 04/02/18 15:35 Antibody Screen Negative 04/02/18 15:35 BBK History Checked Patient has bt 04/02/18 15:35 Discharge Exam - Head Exam Head Exam: ATRAUMATIC, NORMAL INSPECTION, NORMOCEPHALIC Discharge Plan - Follow Up Plan Condition: FAIR Disposition: HOME/ ROUTINE Instructions: Acute Abdomen (Belly Pain), Adult (DC), Nausea and Vomiting, Adult (DC) Additional Instructions: follow up with primary MD 1 week Referrals: Luisa Corrigan MD [Staff Provider] -
== END 2018-04-05 14:12 | disposition home or self-care (01) ==
LOC: H.ER 15:01 → H.ERHOLD 20:40 → H.MEDSURG1 23:36
PROVIDERS: ADMIT Internal Medicine; ATTEND Internal Medicine
DX: E86.0 Dehydration (principal); I10 Essential (primary) hypertension; K29.70 Gastritis, unspecified, without bleeding; K21.9 Gastro-esophageal reflux disease without esophagitis; E78.00 Pure hypercholesterolemia, unspecified; E78.5 Hyperlipidemia, unspecified; R31.9 Hematuria, unspecified; Z91.011 Allergy to milk products; I35.0 Nonrheumatic aortic (valve) stenosis; R19.7 Diarrhea, unspecified; R10.9 Unspecified abdominal pain; C56.9 Malignant neoplasm of unspecified ovary; E11.22 Type 2 diabetes mellitus with diabetic chronic kidney disease; H40.9 Unspecified glaucoma; I12.9 Hypertensive chronic kidney disease with stage 1 through stage 4 chronic kidney disease, or unspecified chronic kidney disease; K57.90 Diverticulosis of intestine, part unspecified, without perforation or abscess without bleeding; K59.09 Other constipation; N13.4 Hydroureter; N18.9 Chronic kidney disease, unspecified; N83.9 Noninflammatory disorder of ovary, fallopian tube and broad ligament, unspecified; N93.9 Abnormal uterine and vaginal bleeding, unspecified; Z85.43 Personal history of malignant neoplasm of ovary; Z87.01 Personal history of pneumonia (recurrent); H26.9 Unspecified cataract; M19.90 Unspecified osteoarthritis, unspecified site; R59.9 Enlarged lymph nodes, unspecified
CPT/HCPCS: 36415; 71045; 74018; 74176; 80048; 80053; 81003; 82948; 83036; 83605; 83690; 85025; 85610; 85730; 86850; 86900; 87040; 87086; 96372; 96374; 96375; 96376; 99285; G0378; J1644; J1885; J2270; J2405; J7030; Q9966

== ENCOUNTER 2018-06-06 22:56 | Emergency (ER) | payer MEDICARE ==
[2018-06-06 22:56] VITALS: BMI 27.1
[2018-06-06 23:04] VITALS: RESP 16; O2SAT 96
--- NOTE | 2018-06-06 23:28 | ED PDOC ---
HPI: Female Pain Time Seen by Provider: 06/06/18 23:04 Chief Complaint (Nursing): Female Genitourinary History Per: Patient History/Exam Limitations: no limitations Onset/Duration Of Symptoms: Days Current Symptoms Are (Timing): Still Present Quality Of Discomfort: Aching Associated Symptoms: denies: Fever, Chills, Nausea, Vomiting Alleviating Factors: None Additional Complaint(s): Hx of DM, ovarian CA (not on chemo), HTN, L sided ureteral stent presenting with dyuria and suprapubic pain x 1 week. Patient states she thought it would "Go away" and did not seek care sooner. Denies abdominal pain when not urinating (other than chronic abdominal pain related to ovarian CA). States she has no fevers, chills, nausea, vomiting, or back pain. Past Medical History Reviewed: Historical Data, Nursing Documentation, Vital Signs Vital Signs: Last Vital Signs Temp 97.8 F 06/06/18 22:57 Pulse 98 H 06/06/18 22:57 Resp 16 06/06/18 22:57 BP 120/63 06/06/18 22:57 Pulse Ox 96 06/06/18 22:57 - Medical History PMH: Arthritis (legs), Diabetes, Diverticulitis, Gastritis, GERD, HTN, Hypercholesterolemia, Pneumonia (during Infancy) Denies: HIV Comment Only: Chronic Kidney Disease (left kidney stent) - Surgical History Surgical History: Tonsillectomy - Family History Family History: States: Unknown Family Hx - Home Medications Home Medications: Ambulatory Orders Medication Instructions Recorded metFORMIN [glucOPHAGE] 500 mg PO BID 10/11/16 Carvedilol [Coreg] 12.5 mg PO Q12 05/18/17 Saxagliptin HCl [Onglyza] 5 mg PO DAILY 05/18/17 Cholecalciferol [Vitamin D 1000 IU] 1,000 unit PO DAILY 08/01/17 Multivit-Min/Iron/Folic/Lutein 1 tab PO DAILY 08/01/17 [Centrum Silver Women Tablet] Suring-3 Fatty Acids/Fish Oil [Fish 1,000 mg PO DAILY 08/01/17 Oil 1,000 mg Capsule] Ciprofloxacin [Cipro] 500 mg PO BID 04/01/18 Ascorbic Acid [Vitamin C 500 mg 500 mg PO DAILY 04/02/18 Tab] Cyanocobalamin [Vitamin B12 1000 1 tab PO DAILY 04/02/18 mcg Tab] Lisinopril [Zestril] 5 mg PO DAILY 04/02/18 Lutein 1 cap PO DAILY 04/02/18 Ondansetron HCl [Zofran] 8 mg PO Q8 PRN 04/02/18 Ubidecarenone [Coenzyme Q-10] 1 cap PO DAILY 04/02/18 Vitamin B Complex [Super B-50 1 cap PO DAILY 04/02/18 Complex] Vitamin E [Vitamin E 400 Units Cap] 400 unit PO DAILY 04/02/18 Ibuprofen [Motrin Tab] 600 mg PO Q6 #30 tab 06/07/18 Nitrofurantoin Macrocrystals 100 mg PO BID 5 Days cap 06/07/18 [Macrobid] - Allergies Allergies/Adverse Reactions: Allergies Allergy/AdvReac Type Severity Reaction Status Date / Time ragweed pollen Allergy SNEEZING Verified 04/01/18 10:09 milk AdvReac DIARRHEA Verified 04/01/18 10:09 Review of Systems ROS Statement: Except As Marked, All Systems Reviewed And Found Negative Genitourinary Female: Positive for: Dysuria, Frequency. Negative for: Hematuria, Vaginal Discharge, Vaginal Bleeding Physical Exam - Reviewed Nursing Documentation Reviewed: Yes Vital Signs Reviewed: Yes - Physical Exam Appears: Positive for: Well, Non-toxic, No Acute Distress Head Exam: Positive for: ATRAUMATIC, NORMAL INSPECTION, NORMOCEPHALIC Skin: Positive for: Normal Color, Warm, DRY Eye Exam: Positive for: EOMI, Normal appearance, PERRL ENT: Positive for: Normal ENT Inspection Neck: Positive for: Normal, Painless ROM Cardiovascular/Chest: Positive for: Regular Rate, Rhythm Respiratory: Positive for: CNT, Normal Breath Sounds Gastrointestinal/Abdominal: Positive for: Bowel Sounds, Soft, Mass (Suprapubic mass felt (patient reports this is chronic and secondary to ovarian mass)). Negative for: Tenderness, Distended, Guarding Back: Positive for: Normal Inspection Extremity: Positive for: Normal ROM Neurologic/Psych: Positive for: Alert, Oriented - ECG O2 Sat by Pulse Oximetry: 96 Pulse Ox Interpretation: Normal Medical Decision Making Medical Decision MakinPM Patient presenting with urinary symptoms --Patient is very well appearing with normal vitals --Likely urinary tract infection --Patient not septic; given well appearance, does not need bloodwork --Will obtain UA and UCx 1AM --Patient has UTI --No signs of complicated infection --Will treat with macrobid --Advised patient to followup with PMD --Very well appearing upon discharge Disposition - Clinical Impression Clinical Impression: Urinary tract infection - Patient ED Disposition Is Patient to be Admitted: No - Disposition Referrals: Eligio Gardner MD [Staff Provider] - Disposition: Routine/Home Disposition Time: 01:00 Condition: GOOD Prescriptions: Ibuprofen [Motrin Tab] 600 mg PO Q6 #30 tab Nitrofurantoin Macrocrystals [Macrobid] 100 mg PO BID 5 Days cap Instructions: Urinary Tract Infection, Adult (DC) Forms: [employer] ([employer])
[2018-06-07] LABS: URINE BILIRUBIN NEGATIVE (NEGATIVE); URINE BLOOD NEGATIVE (NEGATIVE); URINE CLARITY TURBID (Clear); URINE COLOR YELLOW (YELLOW); URINE GLUCOSE (UA) 50 mg/dL (NEGATIVE); URINE LEUKOCYTE ESTERASE MOD Leu/uL (Negative); URINE PROTEIN >=500 mg/dL (NEGATIVE); URINE UROBILINOGEN 0.2-1.0 mg/dL (0.2-1.0)
[2018-06-07 05:04] VITALS: BP 118/64; PULSE 88; TEMP 98.4
== END 2018-06-07 02:02 | disposition home or self-care (01) ==
LOC: H.ER 22:56
DX: N39.0 Urinary tract infection, site not specified (principal); E11.22 Type 2 diabetes mellitus with diabetic chronic kidney disease; E78.00 Pure hypercholesterolemia, unspecified; I12.9 Hypertensive chronic kidney disease with stage 1 through stage 4 chronic kidney disease, or unspecified chronic kidney disease; K21.9 Gastro-esophageal reflux disease without esophagitis; Z79.84 Long term (current) use of oral hypoglycemic drugs

== ENCOUNTER 2018-06-24 07:52 | Inpatient (IN) | payer MEDICARE ==
[2018-06-24 07:52] VITALS: BMI 27.1
[2018-06-24 09:02] LABS: BASO # 0.1 K/uL (0.0-0.2); BASO % 0.6 % (0.0-2.0); EOS % 0.4 % (0.0-4.0); HEMOGLOBIN 12.4 g/dL (12.0-16.0); LYMPH # 0.5 K/uL (1.0-4.3); LYMPH % 5.4 % (20.0-40.0); MEAN CORPUSCULAR HEMOGLOBIN 28.5 pg (27.0-31.0); MEAN CORPUSCULAR HGB CONC 32.4 g/dL (33.0-37.0); MEAN PLATELET VOLUME 8.6 fl (7.2-11.7); MONO # 0.6 K/uL (0.0-0.8); MONO % 6.8 % (0.0-10.0); NEUT # 8.2 K/uL (1.8-7.0); NEUT % 86.8 % (50.0-75.0); PLATELET COUNT 254 K/uL (130-400); RBC 4.34 Mil/uL (3.80-5.20); RED CELL DISTRIBUTION WIDTH 15.7 % (11.5-14.5); WHITE BLOOD COUNT 9.5 K/uL (4.8-10.8)
[2018-06-24 09:08] LABS: ALB/GLOB RATIO 1.1 (1.0-2.1); BLOOD UREA NITROGEN 15 mg/dl (7-17); CALCIUM 9.2 mg/dL (8.4-10.2); GFR NON-AFRICAN AMERICAN 60
[2018-06-24 09:24] LABS: ALT/SGPT 28 U/L (9-52); AST/SGOT 68 U/L (14-36)
--- NOTE | 2018-06-24 09:45 | CT ---
Date of service: 06/24/2018 PROCEDURE: CT HEAD WITHOUT CONTRAST. HISTORY: head injury COMPARISON: None available. TECHNIQUE: Axial computed tomography images were obtained through the head/brain without intravenous contrast. Radiation dose: Total exam DLP = 825.0 mGy-cm. This CT exam was performed using one or more of the following dose reduction techniques: Automated exposure control, adjustment of the mA and/or kV according to patient size, and/or use of iterative reconstruction technique. FINDINGS: HEMORRHAGE: No intracranial hemorrhage. BRAIN: Mehta-white matter differentiation is preserved. There is no mass, mass effect or abnormal extra-axial fluid collection. There is no territorial infarction. The midline sagittal structures are normal. VENTRICLES: There is mild age-related global parenchymal volume loss and proportionate enlargement of the ventricles and cortical sulci. CALVARIUM: There is no calvarial fracture. There is moderate left parietal soft tissue swelling. PARANASAL SINUSES: Predominantly clear. MASTOID AIR CELLS: Predominantly clear. OTHER FINDINGS: None. IMPRESSION: No acute intracranial abnormality.
--- NOTE | 2018-06-24 09:47 | RAD ---
Date of service: 06/24/2018 HISTORY: fall COMPARISON: 04/02/2018. FINDINGS: Right-sided central venous catheter terminates at the cavoatrial junction. LUNGS: The lungs are well inflated and clear. PLEURA: No pleural effusions or pneumothorax. CARDIOVASCULAR: The heart is normal in size. No aortic atherosclerotic calcification present. OSSEOUS STRUCTURES: Within normal limits for the patient's age. There is an S-shaped scoliosis in the thoracolumbar spine. VISUALIZED UPPER ABDOMEN: Normal. OTHER FINDINGS: None. IMPRESSION: No acute findings.
--- NOTE | 2018-06-24 09:54 | RAD ---
PROCEDURE: Radiographs of the pelvis and bilateral hips HISTORY: fall COMPARISON: None. FINDINGS: BONES: The pelvic ring is intact. There is diffuse bone demineralization. No acute displaced fracture or dislocation. Status post three metallic screws in the left proximal femur, no hardware complications. JOINTS: The hip joint spaces are preserved. 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 There is mild osteitis pubis. SOFT TISSUES: Normal. OTHER FINDINGS: Incompletely imaged is a left ureteral stent. There are multiple surgical clips in the pelvis. There are advanced atherosclerotic vascular calcifications. IMPRESSION: No acute displaced fracture or dislocation. Please note occult fractures cannot be excluded on plain radiographs. If there is a persistent clinical concern, an MRI of the hip may be performed for further evaluation.
--- NOTE | 2018-06-24 10:06 | ED PDOC ---
HPI: Trauma/Fall - HPI Time Seen by Provider: 06/24/18 08:12 Chief Complaint (Nursing): Trauma Chief Complaint (Provider): Fall History Per: Patient History/Exam Limitations: no limitations Injury Occurred (Timing): Days Ago: (x 1) Additional Complaint(s): 82 year old woman with a history of HTN and diabetes presents to the ED via EMS for evaluation after fall that occurred yesterday. Patient reports that she lost her balance yesterday in her apartment while reaching in the freezer, fell in between something and was unable to get out. It is unclear how she was found by EMS this morning, but once release she was brought in for evaluation. She is only complaining of frequent urination. Denies headache, LOC, chest pain and shortness of breath. PMD: Dr. Gardner in - Fall Fall:Prior To Injury: Lost Balance Past Medical History Reviewed: Historical Data, Nursing Documentation, Vital Signs Vital Signs: Last Vital Signs Temp 97.6 F 06/24/18 07:56 Pulse 91 H 06/24/18 07:56 Resp 18 06/24/18 07:56 BP 159/96 H 06/24/18 07:56 Pulse Ox 99 06/24/18 07:56 - Medical History PMH: Arthritis (legs), Diabetes, Diverticulitis, Gastritis, GERD, HTN, Hypercholesterolemia, Pneumonia (during Infancy) Denies: HIV Comment Only: Chronic Kidney Disease (left kidney stent) - Surgical History Surgical History: Tonsillectomy - Family History Family History: States: Unknown Family Hx - Home Medications Home Medications: Ambulatory Orders Medication Instructions Recorded RX: metFORMIN [glucOPHAGE] 500 mg PO BID 10/11/16 RX: Carvedilol [Coreg] 12.5 mg PO Q12 05/18/17 RX: Saxagliptin HCl [Onglyza] 5 mg PO DAILY 05/18/17 RX: Lisinopril [Zestril] 5 mg PO DAILY 04/02/18 - Allergies Allergies/Adverse Reactions: Allergies Allergy/AdvReac Type Severity Reaction Status Date / Time ragweed pollen Allergy SNEEZING Verified 04/01/18 10:09 milk AdvReac DIARRHEA Verified 04/01/18 10:09 Review of Systems ROS Statement: Except As Marked, All Systems Reviewed And Found Negative Constitutional: Negative for: Fever Cardiovascular: Negative for: Chest Pain Respiratory: Negative for: Cough, Shortness of Breath Genitourinary Female: Positive for: Frequency Neurological: Negative for: Headache Physical Exam - Reviewed Nursing Documentation Reviewed: Yes Vital Signs Reviewed: Yes - Physical Exam Appears: Positive for: No Acute Distress Head Exam: Positive for: ATRAUMATIC, NORMAL INSPECTION, NORMOCEPHALIC Skin: Positive for: Warm, Dry, Pallor. Negative for: Rash Eye Exam: Positive for: EOMI, PERRL Cardiovascular/Chest: Positive for: Regular Rate, Rhythm, Chest Non Tender. Negative for: Murmur Respiratory: Positive for: Normal Breath Sounds. Negative for: Respiratory Distress Gastrointestinal/Abdominal: Positive for: Normal Exam, Soft. Negative for: Tenderness Extremity: Positive for: Normal ROM (moving all extremities fully). Negative for: Deformity, Swelling, Other (ecchymosis) Neurologic/Psych: Positive for: Alert, fundraising officer II-XII (intact), Oriented (x 3). Negative for: Motor/Sensory Deficits, Cerebellar Tests - Laboratory Results Result Diagrams: 06/24/18 08:50 06/24/18 08:50 - ECG ECG Rhythm: Positive for: Normal QRS, Sinus Rhythm (normal) Interpretation Of Abn EKG: T wave abnormality at lateral leads and prolonged QT segment Rate: 83 O2 Sat by Pulse Oximetry: 99 (RA) Pulse Ox Interpretation: Normal Medical Decision Making Medical Decision Makin:49 Impression: fall; possible syncope, head injury, dehydration Initial Plan: --CT head --EKG --CMP --Creatinine --Magnesium --Troponin --Urine dip --CBC --CXR --Glucose POC --Aspirin 325 mg PO --NS IV --Rocephin 1 gm in 100 ml IVPB --Blood cx --Urine cx --Bilateral hip x-ray --UA 09:[address] FINDINGS: HEMORRHAGE: No intracranial hemorrhage. BRAIN: Mehta-white matter differentiation is preserved. There is no mass, mass effect or abnormal extra-axial fluid collection. There is no territorial infarction. The midline sagittal structures are normal. VENTRICLES: There is mild age-related global parenchymal volume loss and proportionate enlargement of the ventricles and cortical sulci. CALVARIUM: There is no calvarial fracture. There is moderate left parietal soft tissue swelling. PARANASAL SINUSES: Predominantly clear. MASTOID AIR CELLS: Predominantly clear. OTHER FINDINGS: None. IMPRESSION: No acute intracranial abnormality. 09:50 Hip Bilateral x-ray FINDINGS: BONES: The pelvic ring is intact. There is diffuse bone demineralization. No acute displaced fracture or dislocation. Status post three metallic screws in the left proximal femur, no hardware complications. JOINTS: The hip joint spaces are preserved. 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 There is mild osteitis pubis. SOFT TISSUES: Normal. OTHER FINDINGS: Incompletely imaged is a left ureteral stent. There are multiple surgical clips in the pelvis. There are advanced atherosclerotic vascular calcifications. IMPRESSION: No acute displaced fracture or dislocation. Please note occult fractures cannot be excluded on plain radiographs. If there is a persistent clinical concern, an MRI of the hip may be performed for further evaluation. 10:40 --Patient will be admitted due to dehydration and elevated Troponin levels. 1100 Patient is seen by Dr Nix in ER Scribe Attestation: Documented by Johanny Vega acting as a scribe for Jayy Miller MD Provider Scribe Attestation: All medical record entries made by the Scribe were at my direction and personally dictated by me. I have reviewed the chart and agree that the record accurately reflects my personal performance of the history, physical exam, medical decision making, and the department course for this patient. I have also personally directed, reviewed, and agree with the discharge instructions and disposition. Disposition - Clinical Impression Clinical Impression: Elevated troponin, Rhabdomyolysis, Dehydration, Fall - Patient ED Disposition Is Patient to be Admitted: Yes Discussed With : Luisa Corrigan Counseled Patient/Family Regarding: Studies Performed, Diagnosis - Disposition Disposition Time: 10:40 Condition: FAIR - Pt Status Changed To: Hospital Disposition Of: Inpatient - Admit Certification Admit to Inpatient:: After my assessment, the patient will require hospitalization for at least two midnights. This is because of the severity of symptoms shown, intensity of services needed, and/or the medical risk in this patient being treated as an outpatient. - POA Present On Arrival: Falls Or Trauma
[2018-06-24 10:07] LABS: URINE BILIRUBIN NEGATIVE (NEGATIVE); URINE BLOOD MODERATE (NEGATIVE); URINE CLARITY CLOUDY (Clear); URINE COLOR YELLOW (YELLOW); URINE GLUCOSE (UA) NEG (NEGATIVE); URINE LEUKOCYTE ESTERASE LARGE Leu/uL (Negative); URINE PROTEIN 100 mg/dL (NEGATIVE); URINE UROBILINOGEN 0.2-1.0 mg/dL (0.2-1.0)
[2018-06-24] MEDS ORDERED: Sodium Chloride 0.9% 1,000 ML IV STA (10:24)
[2018-06-24] MEDS ORDERED: cefTRIAXone (Rocephin) 1 gm Inj ONE (11:11)
[2018-06-24 11:47] LABS: CK-MB 10.3 ng/mL (0.0-3.38)
--- NOTE | 2018-06-24 11:59 | CP.PCM.CON ---
History of Present Illness - History of Present Illness History of Present Illness: this 82-year-old female who lives alone was brought to the emergency room by emergency medical care personnel after her neighbors called them when they heard her calling for help. The patient gives history of having fallen more than 14 hours before and was on the floor during that period. She is a long-standing hypertensive diabetic who has a history of ovarian malignancy for which she has been getting chemotherapy from an oncologist in [facility]. She denies any history of having suffered a myocardial infarction or being treated for congestive cardiac failure. The patient had a fall last year during which she fractured her left femoral neck and underwent surgical correction. She has been using a cane and admits to unsteady gait. She denies any syncope and sees that her current fall was a consequence of losing balance while trying to open the refrigerator door. She denies any history of having suffered a myocardial infarction or being treated for congestive cardiac failure. Review off her chart indicates admissions in the past for fractured hip and dehydration. Physical examination shows an elderly lady who is quite alert awake coherent and pale. She is able to lie virtually flat and carry on a conversation. She breathes at approximately 14 breaths per minute and her child monitor shows a heart rate of 80 bpm and regular. her blood pressure was 114/70 mmHg.Her jugular venous pressure was not elevated and there was no edema over her lower extremities. The pedal pulses were feeble. Extremities were warm and nailbeds were pale. There was no central or peripheral cyanosis.the apex was felt in the anterior axillary line heaving in character with a first heart sound well heard the second heart sound was slightly muffled. There was an ejection systolic murmur in the aortic area conducted to the base of the neck. There were no rales. The abdomen was slightly distended but nontender. Liver and spleen are not palpable. Her electrocardiogram shows sinus rhythm with QS complexes in leads 3 and aVF and inverted T waves in lead 23 aVF and chest leads. A similar pattern was observed on earlier electrocardiograms dating back to March 2017. Her lab data shows a hemoglobin and hematocrit of 12.4 g and 38.1% respectively. Her WBC count and platelet counts were normal. Her BUN/creatinine were 15 and 0.9 mg percent respectively.her electrolytes were normal. Serum t roponin level was 1.47 ng per mL. Her echocardiogram from March of last year revealed preserved left- ventricular systolic function with a sclerotic aortic valve with a peak aortic valve gradient of 60 mmHg. The aortic valve motion was suggestive of moderate aortic stenosis. Impression: elevated troponin levels probably secondary to rhabdomyolysis. Moderate aortic stenosis. History of diabetes mellitus and hypertension. History of overian malignancy status post surgical correction of a fractured left hip one year back. I have requested a total CK level. At this point she is hemodynamically stable and no immediate intervention from cardiac point of view is necessary. Past Patient History - Infectious Disease Hx of Infectious Diseases: None - Past Medical History & Family History Past Medical History?: Yes - Past Social History Smoking Status: Never Smoked - CARDIAC Hx Hypercholesterolemia: Yes Hx Hypertension: Yes - PULMONARY Hx Pneumonia: Yes (during Infancy) - NEUROLOGICAL Hx Neurological Disorder: No - HEENT Hx HEENT Problems: Yes Hx Cataracts: Yes (bilateral) Hx Glaucoma: Yes - RENAL Hx Chronic Kidney Disease: (left kidney stent) - ENDOCRINE/METABOLIC Hx Endocrine Disorders: Yes (Diabetes Mellitus type 2) Hx Diabetes Mellitus Type 2: Yes - HEMATOLOGICAL/ONCOLOGICAL Hx Human Immunodeficiency Virus (HIV): No - INTEGUMENTARY Hx Dermatological Problems: No - MUSCULOSKELETAL/RHEUMATOLOGICAL Hx Arthritis: Yes (legs) - GASTROINTESTINAL Hx Diverticulitis: Yes Hx Gastritis: Yes - GENITOURINARY/GYNECOLOGICAL Hx Genitourinary Disorders: No Hx Ovarian Cancer: Yes - PSYCHIATRIC Hx Emotional Abuse: No Hx Physical Abuse: No Hx Substance Use: No - SURGICAL HISTORY Hx Tonsillectomy: Yes - ANESTHESIA Hx Anesthesia: Yes Hx Anesthesia Reactions: No Hx Malignant Hyperthermia: No Meds Allergies/Adverse Reactions: Allergies Allergy/AdvReac Type Severity Reaction Status Date / Time ragweed pollen Allergy SNEEZING Verified 04/01/18 10:09 milk AdvReac DIARRHEA Verified 04/01/18 10:09 - Medications Medications: Current Medications Sodium Chloride (Sodium Chloride 0.9%) 1,000 mls @ 100 mls/hr IV .Q10H STA Stop: 06/24/18 20:23 Last Admin: 06/24/18 10:53 Dose: 100 mls/hr Results - Vital Signs Recent Vital Signs: Last Vital Signs Temp 97.6 F 06/24/18 07:56 Pulse 83 06/24/18 11:13 Resp 18 06/24/18 07:56 BP 159/96 H 06/24/18 07:56 Pulse Ox 99 06/24/18 11:13 - Labs Result Diagrams: 06/24/18 08:50 06/24/18 08:50 Labs: Laboratory Results - last 24 hr 06/24/18 06/24/18 06/24/18 08:10 08:50 08:50 WBC 9.5 D RBC 4.34 Hgb 12.4 D Hct 38.1 MCV 88.0 D MCH 28.5 MCHC 32.4 L RDW 15.7 H Plt Count 254 D MPV 8.6 Neut % (Auto) 86.8 H Lymph % (Auto) 5.4 L [place] % (Auto) 6.8 Eos % (Auto) 0.4 Baso % (Auto) 0.6 Neut # (Auto) 8.2 H Lymph # (Auto) 0.5 L [place] # (Auto) 0.6 Eos # (Auto) 0.0 Baso # (Auto) 0.1 Sodium 141 Potassium 4.3 Chloride 103 Carbon Dioxide 28 Anion Gap 14 BUN 15 Creatinine 0.9 Est GFR ( Amer) > 60 Est GFR (Non-Af Amer) 60 POC Glucose (mg/dL) 123 H Random Glucose 135 H Calcium 9.2 Magnesium 1.9 Total Bilirubin 1.1 AST 68 H D ALT 28 Alkaline Phosphatase 94 Total Creatine Kinase 592 H CK-MB (Mass) 10.3 H Troponin I 1.4700 H* Total Protein 7.7 Albumin 4.0 Globulin 3.7 Albumin/Globulin Ratio 1.1 Urine Color Urine Clarity Urine pH Ur Specific [place] Urine Protein Urine Glucose (UA) Urine Ketones Urine Blood Urine Nitrate Urine Bilirubin Urine Urobilinogen Ur Leukocyte Esterase Urine RBC (Auto) Urine Microscopic WBC 06/24/18 09:40 WBC RBC Hgb Hct MCV MCH MCHC RDW Plt Count MPV Neut % (Auto) Lymph % (Auto) [place] % (Auto) Eos % (Auto) Baso % (Auto) Neut # (Auto) Lymph # (Auto) [place] # (Auto) Eos # (Auto) Baso # (Auto) Sodium Potassium Chloride Carbon Dioxide Anion Gap BUN Creatinine Est GFR ( Amer) Est GFR (Non-Af Amer) POC Glucose (mg/dL) Random Glucose Calcium Magnesium Total Bilirubin AST ALT Alkaline Phosphatase Total Creatine Kinase CK-MB (Mass) Troponin I Total Protein Albumin Globulin Albumin/Globulin Ratio Urine Color Yellow Urine Clarity Cloudy Urine pH 8.0 Ur Specific [place] 1.010 Urine Protein 100 Urine Glucose (UA) Neg Urine Ketones Negative Urine Blood Moderate Urine Nitrate Negative Urine Bilirubin Negative Urine Urobilinogen 0.2-1.0 Ur Leukocyte Esterase Large Urine RBC (Auto) 51 H Urine Microscopic WBC 402 H
[2018-06-24 12:48] LABS: BANDS 2 % (0-2); LYMPHOCYTE 4 % (20-50); MONOCYTE 4 % (0-10); NEUTROPHIL 90 % (42-75); PLATELET ESTIMATE NORMAL (NORMAL); TOTAL CELLS COUNTED 100
[2018-06-24 12:49] LABS: ANISOCYTOSIS SLIGHT
--- NOTE | 2018-06-24 20:51 | CARD ---
APPROVED REPORT Date of service: 06/24/2018 EKG Measurement Heart [id number] <Conclusion> Normal sinus rhythm Left axis deviation Inferior infarct, age undetermined T wave abnormality, consider anterolateral ischemia Prolonged QT Abnormal ECG
[2018-06-25] MEDS: Enoxaparin 40 mg Syringe SC SCH (09:14)
[2018-06-25] MEDS: Sodium Chloride 0.9% 1,000 ML IV SCH ×3 (15:00→22:07)
--- NOTE | 2018-06-25 19:15 | CP.PCM.HP ---
Past Patient History - Infectious Disease Hx of Infectious Diseases: None - Past Medical History & Family History Past Medical History?: Yes - Past Social History Smoking Status: Never Smoked - CARDIAC Hx Cardiac Disorders: Yes Hx Angina: No Hx Atrial Fibrillation: No Hx Cardia Arrhythmia: No Hx Circulatory Problems: No Hx Congestive Heart Failure: No Hx Heart Attack: No Hx Heart Murmur: Yes Hx Heart Transplant: No Hx Hypercholesterolemia: Yes Hx Hypertension: Yes Hx Hypotension: No Hx Internal Defibrillator: No Hx Mitral Valve Prolapse: No Hx Pacemaker: No Hx Peripheral Edema: No Hx Peripheral Vascular Disease: No - PULMONARY Hx Respiratory Disorders: No Hx Asthma: No Hx Bronchitis: No Hx Chronic Obstructive Pulmonary Disease (COPD): No Hx Emphysema: No Hx Lung Cancer: No Hx Pneumonia: Yes (during Infancy) Hx Pulmonary Edema: No Hx Pulmonary Embolism: No Hx Respiratory Aspiration: No Hx Respiratory Tract Infection: No Hx Sleep Apnea: No Hx Tuberculosis: No - NEUROLOGICAL Hx Neurological Disorder: No Hx Alzheimer's Disease: No HX Cerebrovascular Accident: No Hx Dementia: No Hx Dizziness: No Hx Meningitis: No Hx Migraine: No Hx Multiple Sclerosis: No Hx Paralysis: No Hx Parkinson's Disease: No Hx Seizures: No Hx Syncope: No Hx Transient Ischemic Attacks (TIA): No Hx Vertigo: No - HEENT Hx HEENT Problems: No Hx Blind: No Hx Cataracts: Yes (bilateral) Hx Deafness: No Hx Difficulty Chewing: No Hx Epistaxis: No Hx Glaucoma: No Hx Macular Degeneration: No Hx Sinusitis: No - RENAL Hx Chronic Kidney Disease: Yes (left kidney stent) - ENDOCRINE/METABOLIC Hx Endocrine Disorders: Yes (Diabetes Mellitus type 2) Hx Diabetes Mellitus Type 2: Yes - HEMATOLOGICAL/ONCOLOGICAL Hx Blood Disorders: No Hx AIDS: No Hx Anemia: No Hx Blood Transfusions: No Hx Blood Transfusion Reaction: No Hx Bruising: No Hx Cancer: Yes Hx Chemotherapy: No Hx Cirrhosis: No Hx Gum Bleeding: No Hx Hemophilia: No Hx Hepatitis A: No Hx Hepatitis B: No Hx Hepatitis C: No Hx Human Immunodeficiency Virus (HIV): No Hx Leukemia: No Hx Metastesis: No Hx Shingles: No Hx Sickle Cell Disease: No Hx Unexplained Bleeding: No Hx von Willebrand's Disease: No - INTEGUMENTARY Hx Dermatological Problems: No Hx Basil Cell: No Hx Tang: No Hx Cellulitis: No Hx Eczema: No Hx Melanoma: No Hx Psoriasis: No Hx Squamous Cell: No - MUSCULOSKELETAL/RHEUMATOLOGICAL Hx Arthritis: Yes (legs) Hx Back Pain: No Hx Degenerative Joint Disease: No Hx Falls: Yes Hx Fractures: No Hx Gout: No Hx Herniated Disk: No Hx Myasthenia Gravis: No Hx Osteoarthritis: No Hx Osteomyelitis: No Hx Osteoporosis: No Hx Rhabdomyolysis: No Hx Rheumatoid Arthritis: No Hx Spinal Stenosis: No Hx Unsteady Gait: No - GASTROINTESTINAL Hx Bowel Surgery: No Hx Clostridium Difficile: No Hx Colitis: No Hx Colostomy: No Hx Constipation: No Hx Crohn's Disease: No Hx Diarrhea: No Hx Diverticulitis: Yes Hx Esophageal Varices: No Hx Fatty Liver Disease: No Hx Gall Bladder Disease: No Hx Gastritis: Yes Hx Gastroesophageal Reflux: Yes Hx Hemorrhoids: No Hx Ileostomy: No Hx Irritable Bowel: No Hx Liver Failure: No Hx Nausea: No Hx Pancreatitis: No HX Swallowing Problems: No Hx Ulcer: No Hx Vomiting: No - GENITOURINARY/GYNECOLOGICAL Hx Genitourinary Disorders: Yes Hx Cervical Cancer: Yes Hx Ovarian Cancer: Yes Hx Uterine Cancer: Yes Hx Urinary Tract Infection: Yes - PSYCHIATRIC Hx Psychophysiologic Disorder: No Hx Substance Use: No - SURGICAL HISTORY Hx Surgeries: Yes Other/Comment: left kidney stent - ANESTHESIA Hx Anesthesia: Yes Hx Anesthesia Reactions: No Hx Malignant Hyperthermia: No Meds Allergies/Adverse Reactions: Allergies Allergy/AdvReac Type Severity Reaction Status Date / Time ragweed pollen Allergy SNEEZING Verified 04/01/18 10:09 milk AdvReac DIARRHEA Verified 04/01/18 10:09 Results - Vital Signs Recent Vital Signs: Last Vital Signs Temp 98.2 F 06/25/18 16:14 Pulse 83 06/25/18 16:14 Resp 18 06/25/18 16:14 BP 136/80 06/25/18 16:14 Pulse Ox 97 06/25/18 16:14 - Labs Result Diagrams: 06/24/18 08:50 06/24/18 08:50 Labs: Laboratory Results - last 24 hr 06/24/18 06/25/18 06/25/18 21:05 02:46 05:48 POC Glucose (mg/dL) 145 H 134 H Troponin I 0.8270 H*
--- NOTE | 2018-06-25 19:15 | CP.PCM.PN ---
Subjective - Date & Time of Evaluation Date of Evaluation: 06/25/18 Time of Evaluation: 16:50 Objective - Vital Signs/Intake and Output Vital Signs (last 24 hours): Temp Pulse Resp BP Pulse Ox 98.2 F 83 18 136/80 97 06/25/18 16:14 06/25/18 16:14 06/25/18 16:14 06/25/18 16:14 06/25/18 16:14 - Medications Medications: Current Medications Carvedilol (Coreg) 12.5 mg PO Q12 [facility] Last Admin: 06/25/18 09:15 Dose: 12.5 mg Enoxaparin Sodium (Lovenox) 40 mg SC DAILY [facility]; Protocol Last Admin: 06/25/18 09:14 Dose: 40 mg Ceftriaxone Sodium 1 gm/ (Sodium Chloride) 100 mls @ 100 mls/hr IVPB DAILY [facility]; Protocol Last Admin: 06/25/18 09:13 Dose: 100 mls/hr Sodium Chloride (Sodium Chloride 0.9%) 1,000 mls @ 125 mls/hr IV .Q8H [facility] Stop: 06/26/18 09:32 Last Admin: 06/25/18 18:22 Dose: Not Given Lisinopril (Zestril) 5 mg PO DAILY [facility] Last Admin: 06/25/18 09:14 Dose: 5 mg Metformin HCl (Glucophage) 500 mg PO BID [facility] Last Admin: 06/25/18 18:21 Dose: 500 mg Sitagliptin Phosphate (Januvia) 50 mg PO DAILY [facility] Last Admin: 06/25/18 09:21 Dose: 50 mg - Labs Labs: 06/24/18 08:50 06/24/18 08:50
[2018-06-26] MEDS: Sodium Chloride 0.9% 1,000 ML IV SCH (01:20)
[2018-06-26 05:27] LABS: BLOOD UREA NITROGEN 12 mg/dl (7-17); CALCIUM 7.6 mg/dL (8.4-10.2); GFR NON-AFRICAN AMERICAN 53
[2018-06-26 05:30] LABS: HEMOGLOBIN 7.9 g/dL (12.0-16.0); MEAN CELL VOLUME 89.2 fl (81.0-99.0); MEAN CORPUSCULAR HEMOGLOBIN 28.5 pg (27.0-31.0); RBC 2.76 Mil/uL (3.80-5.20); RED CELL DISTRIBUTION WIDTH 16.1 % (11.5-14.5); WHITE BLOOD COUNT 3.7 K/uL (4.8-10.8)
--- NOTE | 2018-06-26 08:57 | CP.PCM.PN ---
Subjective - Date & Time of Evaluation Date of Evaluation: 06/26/18 Time of Evaluation: 08:20 - Subjective Subjective: the patient denies any significant symptoms at this point and reports having been comfortable overnight. She was found eating breakfast in her bed and could carry on a conversation. Telemetry shows steady sinus rhythm at physiological rates. Her blood pressure was 136/74 mmHg. Her jugular venous pressure was not elevated and there were no rales. Her lab data shows a normocytic normochromic anemia.( her hemoglobin of 12.4 g at admission has gone down to 7.9 g this morning) The patient has been hydrated since her admission 2 days back. But, a normal blood pressure and a normal BUN/creatinine at admission goes strongly against severe dehydration at admission. The patient has had low hemoglobin probably as a consequence of advanced ovarian malignancy. Given her advanced age and severity of anemia she probably would benefit by blood transfusion. She is stable from cardiovascular point of view and may go off telemetry floor. I strongly urged her against returning to her apartment and living alone. Objective - Vital Signs/Intake and Output Vital Signs (last 24 hours): Temp Pulse Resp BP Pulse Ox 97.8 F 76 20 125/70 96 06/26/18 07:57 06/26/18 07:57 06/26/18 07:57 06/26/18 07:57 06/26/18 07:57 - Medications Medications: Current Medications Carvedilol (Coreg) 12.5 mg PO Q12 [facility] Last Admin: 06/25/18 21:02 Dose: 12.5 mg Enoxaparin Sodium (Lovenox) 40 mg SC DAILY [facility]; Protocol Last Admin: 06/25/18 09:14 Dose: 40 mg Ceftriaxone Sodium 1 gm/ (Sodium Chloride) 100 mls @ 100 mls/hr IVPB DAILY [facility]; Protocol Last Admin: 06/25/18 09:13 Dose: 100 mls/hr Lisinopril (Zestril) 5 mg PO DAILY [facility] Last Admin: 06/25/18 09:14 Dose: 5 mg Metformin HCl (Glucophage) 500 mg PO BID [facility] Last Admin: 06/25/18 18:21 Dose: 500 mg Sitagliptin Phosphate (Januvia) 50 mg PO DAILY [facility] Last Admin: 06/25/18 09:21 Dose: 50 mg - Labs Labs: 06/26/18 04:39 06/26/18 04:39
[2018-06-26] MEDS: Enoxaparin 40 mg Syringe SC SCH ×2 (09:50→09:54)
--- NOTE | 2018-06-26 11:19 | PQF ---
PROVIDER RESPONSE TEXT: CKD Stage III REVIEWER QUERY TEXT: Kidney Disease, Chronic CKD Stage Chronic Kidney Disease (CKD) is documented in the Medical Record. Please specify the disease stage ( includes probable or suspected) versus CKD ruled out Such as: -- Chronic kidney disease Stage 1 -- Chronic kidney disease Stage 2 -- Chronic kidney disease Stage 3 -- Chronic kidney disease Stage 4 -- Chronic kidney disease Stage 5 -- Chronic kidney disease Stage 5, requiring dialysis -- End Stage Renal Disease -- Other, please specify Creatinine:0.9->1.0 Est GFR ( Amer): >60--->60 Est GFR(Non-Af Amer):60->53 ER and H and P; Hx Chronic Kidney Disease Hx Diabetes Mellitus Type 2: Yes Stages are defined by the [employer] as follows: CKD Stage I GFR >= 90 ml / min per 1.73 m2 and persistent albuminuria CKD Stage 2 GFR between 60 and 89 with persistent albuminuria CKD Stage 3 GFR between 30 and 59 CKD Stage 4 GFR between 15 and 29 CKD Stage 5 GFR between <15 or End Stage Renal Disease The patient's Clinical Indicators include: -- Query created by: Tamia Hough on 06/26/2018 10:29 AM Electronically signed by: Luisa Corrigan MD 06/26/2018 11:16 AM
[2018-06-27] MEDS: Enoxaparin 40 mg Syringe SC SCH (08:59)
--- NOTE | 2018-06-27 09:11 | CP.PCM.PN ---
Subjective - Date & Time of Evaluation Date of Evaluation: 06/27/18 Time of Evaluation: 08:45 - Subjective Subjective: except for constipation the patient doesn't have any particular symptoms at this point. The patient declines to have a blood transfusion. The patient has spent some time out of bed and didn't participate in physical therapy yesterday. Her vital signs are stable. The patient is stable from cardiovascular point of view and may go to subacute rehabilitation. Objective - Vital Signs/Intake and Output Vital Signs (last 24 hours): Temp Pulse Resp BP Pulse Ox 97.8 F 77 20 139/76 98 06/27/18 04:58 06/27/18 09:00 06/27/18 04:58 06/27/18 09:00 06/27/18 04:58 - Medications Medications: Current Medications Carvedilol (Coreg) 12.5 mg PO Q12 [facility] Last Admin: 06/27/18 08:57 Dose: 12.5 mg Enoxaparin Sodium (Lovenox) 40 mg SC DAILY [facility]; Protocol Last Admin: 06/27/18 08:59 Dose: 40 mg Lactulose (Enulose) 20 gm PO ONCE ONE Stop: 06/27/18 09:09 Lisinopril (Zestril) 5 mg PO DAILY [facility] Last Admin: 06/27/18 09:00 Dose: 5 mg Metformin HCl (Glucophage) 500 mg PO BID [facility] Last Admin: 06/27/18 08:58 Dose: 500 mg Sitagliptin Phosphate (Januvia) 50 mg PO DAILY [facility] Last Admin: 06/27/18 08:58 Dose: 50 mg - Labs Labs: 06/26/18 04:39 06/26/18 04:39
[2018-06-27 11:44] LABS: HEMOGLOBIN 7.8 g/dL (12.0-16.0); MEAN CELL VOLUME 90.7 fl (81.0-99.0); MEAN CORPUSCULAR HEMOGLOBIN 28.2 pg (27.0-31.0); MEAN CORPUSCULAR HGB CONC 31.1 g/dL (33.0-37.0); RBC 2.75 Mil/uL (3.80-5.20); RED CELL DISTRIBUTION WIDTH 16.3 % (11.5-14.5); WHITE BLOOD COUNT 3.4 K/uL (4.8-10.8)
[2018-06-27 11:53] LABS: BLOOD UREA NITROGEN 16 mg/dl (7-17); CALCIUM 8.1 mg/dL (8.4-10.2); GFR NON-AFRICAN AMERICAN 53
[2018-06-27 15:25] LABS: IRON 49 ug/dL (37-170)
[2018-06-27 15:34] LABS: % IRON SATURATION 20 % (20-55); TOTAL IRON BINDING CAPACITY 243 ug/dL (250-450)
[2018-06-28 02:05] VITALS: RESP 18
[2018-06-28 06:09] LABS: HEMOGLOBIN 8.4 g/dL (12.0-16.0); MEAN CELL VOLUME 87.8 fl (81.0-99.0); MEAN CORPUSCULAR HEMOGLOBIN 28.3 pg (27.0-31.0); MEAN CORPUSCULAR HGB CONC 32.2 g/dL (33.0-37.0); RBC 2.96 Mil/uL (3.80-5.20); RED CELL DISTRIBUTION WIDTH 16.3 % (11.5-14.5); WHITE BLOOD COUNT 3.6 K/uL (4.8-10.8)
[2018-06-28] MEDS: Enoxaparin 40 mg Syringe SC SCH (09:51)
[2018-06-28 12:09] VITALS: BP 136/75; PULSE 83; TEMP 97.2; O2SAT 97
== END 2018-06-28 13:38 | DRG 558 ==
LOC: H.ER 07:52 → H.ERHOLD 10:40 → H.TEL 13:31
PROVIDERS: ADMIT Internal Medicine; ATTEND Internal Medicine
DX: M62.82 Rhabdomyolysis (principal); K21.9 Gastro-esophageal reflux disease without esophagitis; E78.00 Pure hypercholesterolemia, unspecified; E86.0 Dehydration; W01.0XXA Fall on same level from slipping, tripping and stumbling without subsequent striking against object, initial encounter; K59.00 Constipation, unspecified; H40.9 Unspecified glaucoma; Z85.41 Personal history of malignant neoplasm of cervix uteri; Z85.42 Personal history of malignant neoplasm of other parts of uterus; D64.9 Anemia, unspecified; E11.22 Type 2 diabetes mellitus with diabetic chronic kidney disease; I12.9 Hypertensive chronic kidney disease with stage 1 through stage 4 chronic kidney disease, or unspecified chronic kidney disease; N18.3 Chronic kidney disease, stage 3 (moderate)